=== PATIENT | male | born 1950 | race Caucasian/White ===

== ENCOUNTER 2021-02-06 13:50 | Inpatient (IN) | payer OTHER, SELFPAY ==
[2021-02-06] VITALS (7 sets, daily range): BP systolic 109–115; BP diastolic 78–96; PULSE 93–120; RESP 16–26; TEMP 36.6–36.9; O2SAT 84–97; BMI 30.7
--- NOTE | ~2021-02-06 | CT_ITS ---
EXAMINATION: CT ANGIOGRAM CHEST WITH AND WITHOUT CONTRAST (CT PULMONARY ANGIOGRAM FOR PE) CLINICAL INFORMATION: Positive D-dimer. New onset CHF. COMPARISON: Chest radiograph done earlier the same day and chest radiograph dated 01/21/2010. TECHNIQUE: Prior to contrast administration, noncontrast localization images were obtained. Subsequently, multidetector volumetric imaging was performed from the thoracic inlet to below the diaphragms following the administration of 69 mL Omnipaque 350 intravenous contrast. No contrast reaction reported. Sagittal, coronal, and MIP oblique sagittal reformatted images were obtained on the CT workstation, uploaded to PACS, and reviewed. This CT examination was performed using dose optimization techniques as appropriate, variously including the following: *Automated exposure control. *Adjustment of mA and/or kV according to patient size (this includes techniques or standardized protocols for targeted exams where dose is matched to indication/reason for exam; i.e. extremities or head). *Use of iterative reconstruction technique. Total exam dose-length product 523 mGy-cm. FINDINGS: QUALITY OF STUDY/CONTRAST BOLUS: Satisfactory. PULMONARY ARTERIES: No central or segmental pulmonary emboli. THORACIC AORTA: No aneurysm or dissection. Scattered atherosclerotic calcifications. LUNG: Diffuse interstitial prominence. Bilateral posterior dependent atelectasis versus infiltrates. No large pulmonary mass. PLEURA: The central airways appear patent. [id number] bilateral pleural effusions. No pneumothorax. MEDIASTINUM: Mild cardiomegaly including dilatation of the left heart. No pericardial effusion. Subcentimeter prevascular lymph nodes. No significant superior mediastinal or hilar lymphadenopathy. No evidence of septal bowing or right heart strain. CHEST WALL/AXILLA: No axillary or internal mammary lymphadenopathy. OSSEOUS STRUCTURES: No acute or suspicious osseous abnormality. UPPER ABDOMEN: Unremarkable. Reflux of contrast into the hepatic veins suggesting elevated right heart pressures. CT/CT angio chest PE protocol IMPRESSION: 1. No central or segmental pulmonary embolism. 2. Cardiomegaly including dilatation of the left heart with [id number] bilateral pleural effusions as well as diffuse interstitial prominence and bibasilar atelectasis versus early infiltrates. Findings can be seen in the setting of CHF. 3. Reflux of contrast into the hepatic veins suggesting elevated right heart pressures. VTE: Negative.
--- NOTE | ~2021-02-06 | XR_ITS ---
EXAMINATION: XR CHEST CLINICAL INFORMATION: Shortness of breath. COMPARISON: Chest 01/21/2010 TECHNIQUE: Frontal view of the chest was obtained. FINDINGS: The lungs are expanded with patchy groundglass opacity seen in both lung bases. The upper lungs are clear. The heart size and pulmonary vascularity is normal. There are median sternotomy sutures and mediastinal daren from previous intervention. There is moderate spondylosis dorsal spine. No lytic process. XR/XR chest 1V IMPRESSION: Diffuse groundglass opacity in bilateral lower lobes suggestive of developing infiltrate or atelectasis.
--- NOTE | 2021-02-06 14:01 | ED.SOB ---
HPI - SOB/Dyspnea General Chief Complaint: Dyspnea <Dixon Arceo MD - Last Filed: 02/06/21 16:07> Stated Complaint: diff breathing, cold symptoms <Dixon Arceo MD - Last Filed: 02/06/21 16:07> Time Seen by Provider: 02/06/21 14:01 <Dixon Arceo MD - Last Filed: 02/06/21 16:07> Source: patient <Dixon Arceo MD - Last Filed: 02/06/21 16:07> Mode of arrival: ambulatory <Dixon Arceo MD - Last Filed: 02/06/21 16:07> Limitations: no limitations <Dixon Arceo MD - Last Filed: 02/06/21 16:07> History of Present Illness HPI Narrative: shortness of breath started 3 days ago, patient had URI symptoms a few days ago now with shortness of breath. Patient is vaccinated for COVID. Patient had quadruple bypass 6 years ago no CHF history. 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. patient is an ex smoker <Dixno Arceo MD - Last Filed: 02/06/21 16:07> MD elicited complaint: shortness of breath <Dixon rAceo MD - Last Filed: 02/06/21 16:07> Onset (ago): day(s) <Dixon Arceo MD - Last Filed: 02/06/21 16:07> Timing: constant <Dixon Arceo MD - Last Filed: 02/06/21 16:07> Severity: severe <Dixon Arceo MD - Last Filed: 02/06/21 16:07> Associated symptoms: denies other symptoms <Dixon Arceo MD - Last Filed: 02/06/21 16:07> Related Data Allergies/Adverse Reactions: Allergies Allergy/AdvReac Type Severity Reaction Status Date / Time No Known Allergies Allergy Verified 02/06/21 14:07 <Dixon Arceo MD - Last Filed: 02/06/21 16:07> Review of Systems Constitutional: Constitutional: Reports no additional constitutional complaints <Dixon Arceo MD - Last Filed: 02/06/21 16:07> Eyes: Eyes: Reports no additional eye complaints <Dixon Arceo MD - Last Filed: 02/06/21 16:07> ENT: Denies dizziness <Dixon Arceo MD - Last Filed: 02/06/21 16:07> Cardiovascular: Cardiovascular: Reports no additional cardiovascular complaints <Dixon Arceo MD - Last Filed: 02/06/21 16:07> Respiratory: Respiratory: Reports as per HPI <Dixon Arceo MD - Last Filed: 02/06/21 16:07> Gastrointestinal: Gastrointestinal: Reports no additional gastrointestinal complaints <Dixon Arceo MD - Last Filed: 02/06/21 16:07> Musculoskeletal: Musculoskeletal: Reports no additional musculoskeletal complaints <Dixon Arceo MD - Last Filed: 02/06/21 16:07> Integumentary/Breasts: Skin/Breast: Denies rash <Dixon Arceo MD - Last Filed: 02/06/21 16:07> Neurologic: Reports system reviewed and no additional complaints, except as documented, Denies dizziness and Denies Sensory deficit (Neuro) <Dixon Arceo MD - Last Filed: 02/06/21 16:07> Psychiatric: Psychiatric: Denies anxiety <Dixon Arceo MD - Last Filed: 02/06/21 16:07> [facility] Past Medical History Medical History: Medical History Sarcoma <Dixon Arceo MD - Last Filed: 02/06/21 16:07> Surgical History: Surgical History S/P quadruple vessel bypass <Dixon Arceo MD - Last Filed: 02/06/21 16:07> Social History Social History: Social History Advance Directives: No Advance Directives Information Provided: Yes <Dixon Arceo MD - Last Filed: 02/06/21 16:07> Physical Exam Vital Signs: Vital Signs: Last Vital Signs Temp 98.4 F 02/06/21 14:02 Pulse 95 02/06/21 16:29 Resp 22 H 02/06/21 16:29 BP 115/83 02/06/21 16:29 Pulse Ox 95 02/06/21 14:05 Body Mass Index 30.7 <Dixon Arceo MD - Last Filed: 02/06/21 16:07> Vital Signs: Last Vital Signs Temp 98.4 F 02/06/21 14:02 Pulse 95 02/06/21 16:29 Resp 22 H 02/06/21 16:29 BP 115/83 02/06/21 16:29 Pulse Ox 95 02/06/21 14:05 Body Mass Index 30.7 <Emeli Radford MD - Last Filed: 02/06/21 18:01> Const: Other: slightly short of breath <Dixon Arceo MD - Last Filed: 02/06/21 16:07> Nutritional Appearance: average body habitus <Dixon Arceo MD - Last Filed: 02/06/21 16:07> Orientation/consciousness: oriented to person and patient oriented x3 <Dixon Arceo MD - Last Filed: 02/06/21 16:07> Limitations: no limitations <Dixon Arceo MD - Last Filed: 02/06/21 16:07> HENMT: Head: Yes normal to inspection <Dixon Arceo MD - Last Filed: 02/06/21 16:07> Ears: external ears normal <Dixon Arceo MD - Last Filed: 02/06/21 16:07> General nose exam: Normal external nose present <Dixon Arceo MD - Last Filed: 02/06/21 16:07> Mouth: Normal oral and palatal mucosa present and oropharynx normal <Dixon Arceo MD - Last Filed: 02/06/21 16:07> Throat: Yes posterior oropharynx normal <Dixon Arceo MD - Last Filed: 02/06/21 16:07> Eyes: General: appearance normal, both eyes and all related structures <Dixon Arceo MD - Last Filed: 02/06/21 16:07> Neck: Other: supple, positive JVD <Dixon Arceo MD - Last Filed: 02/06/21 16:07> Neck: Yes normal visual inspection <Dixon Arceo MD - Last Filed: 02/06/21 16:07> Chest: Chest palpation & inspection: normal inspection of the chest <Dixon Arceo MD - Last Filed: 02/06/21 16:07> Resp: Auscultation: clear to auscultation bilaterally <Dixon Arceo MD - Last Filed: 02/06/21 16:07> Cardio: Other: positive JVD <Dixon Arceo MD - Last Filed: 02/06/21 16:07> Rate: regular rate <Dixon Arceo MD - Last Filed: 02/06/21 16:07> Rhythm: regular rhythm <Dixon Arceo MD - Last Filed: 02/06/21 16:07> Heart sounds: S1 normal heart sound present and S2 normal heart sound present <Dixon Arceo MD - Last Filed: 02/06/21 16:07> GI: Inspection: Yes normal to inspection <Dixon Arceo MD - Last Filed: 02/06/21 16:07> Palpation (GI): Soft to palpation, nontender and No hepatosplenomegaly present <Dixon Arceo MD - Last Filed: 02/06/21 16:07> Auscultation: normal bowel sounds <Dixon Arceo MD - Last Filed: 02/06/21 16:07> : General: Yes no CVA tenderness <Dixon Arceo MD - Last Filed: 02/06/21 16:07> Back/Spine/Pelvis: Back: no CVA tenderness <Dixon Arceo MD - Last Filed: 02/06/21 16:07> Skin: General skin exam: no rashes or lesions noted <Dixon Arceo MD - Last Filed: 02/06/21 16:07> Neuro: General: oriented to person and patient oriented x3 <Dixon Arceo MD - Last Filed: 02/06/21 16:07> Cranial nerves: Yes CN's II-XII intact bilaterally <Dixon Arceo MD - Last Filed: 02/06/21 16:07> Motor exam (neuro): 5/5 motor strength present throughout <Dixon Arceo MD - Last Filed: 02/06/21 16:07> Sensory Exam: No Sensory deficit (Neuro) <Dixon Arceo MD - Last Filed: 02/06/21 16:07> Extrem: Other: bilateral leg swelling <Dixon Arceo MD - Last Filed: 02/06/21 16:07> Psych: Appearance: grossly normal <Dixon Arceo MD - Last Filed: 02/06/21 16:07> Course Reevaluation(s) Reevaluation #1: Patient with what appears to be new onset CHF, Cardiomegaly, JVD and leg edema. Gave ASA, NTP and lasix. In addition, ddimer is positive so will make sure that there is no PE and will CT angio chest. <Dixon Arceo MD - Last Filed: 02/06/21 16:07> Time: 15:34 <Dixon Arceo MD - Last Filed: 02/06/21 16:07> Reevaluation #2: I took sign out from Dr. Arceo and on review of all investigations findings are most consistent with acute CHF exacerbation and the elevated troponins likely secondary to increased work as there are no findings on EKG to suggest ischemic changes. However, the troponin, EKG, BNP are repeated and this case was discussed with the inpatient hospitalist who accepts admission and will evaluate output and order additional Lasix as indicated. <Emeli Radford MD - Last Filed: 02/06/21 18:01> Time: 16:56 <Emeli Radford MD - Last Filed: 02/06/21 18:01> Reevaluation #3: Dr Soriano evaluating patient. <Emeli Radford MD - Last Filed: 02/06/21 18:01> Time: 17:00 <Emeli Radford MD - Last Filed: 02/06/21 18:01> MDM - SOB/Dyspnea Lab Data Result diagrams: : 02/06/21 14:24 02/06/21 14:55 <Dixon Arceo MD - Last Filed: 02/06/21 16:07> Labs: Lab Results 02/06/21 02/06/21 02/06/21 Range/Units 14:23 14:24 14:24 WBC 7.7 (4.8-10.8) X10*3/uL RBC 4.72 (4.60-5.80) X10*6/uL Hgb 13.2 L (14.0-18.0) g/dl Hct 41.7 L (42.0-52.0) % MCV 88.3 (80.0-98.0) fL MCH 28.0 (27.0-33.0) pg MCHC 31.7 (31.0-36.0) g/dl RDW 15.4 (11.0-16.0) % Plt Count 175 (160-400) X10*3/uL MPV 11.8 (9.4-12.4) fL Immature Gran % (Auto) 0.1 (0.0-0.4) % Neut % (Auto) 62.0 (45-73) % Lymph % (Auto) 27.6 (20-40) % [place] % (Auto) 8.9 (2-11) % Eos % (Auto) 0.9 (0-4) % Baso % (Auto) 0.5 (0-2) % Lymph # (Auto) 2.1 (1.2-4.9) X10*3/uL [place] # (Auto) 0.7 (0.1-1.2) X10*3/uL Eos # (Auto) 0.1 (0.0-0.4) X10*3/uL Baso # (Auto) 0.0 (0.0-0.2) X10*3/uL Abs Immat Gran (auto) 0.01 (0.00-0.03) X10*3/uL Absolute Neuts (auto) 4.8 (2.0-8.3) x10*3/uL Absolute Nucleated RBC 0.000 (0.0-0.012) X10*3/uL Nucleated RBC % (auto) 0.0 (0.0-0.2) /100WBC D-Dimer High Sensitivty 390 NG/ML Sodium (135-145) mmol/L Potassium (3.3-5.1) mmol/L Chloride (96-108) mmol/L Carbon Dioxide (22-29) mmol/L Anion Gap (12-20) BUN (9-16) mg/dL Creatinine (0.5-1.4) mg/dL Estim Creat Clear Calc Estimated GFR POC Glucose 152 H (60-115) mg/dL Random Glucose (60-115) mg/dL Lactic Acid (0.5-2.0) mmol/L Calcium (8.4-10.2) mg/dL Troponin I High Sens (<3.5-35.0) ng/L B-Natriuretic Peptide (<100) pg/mL Influenza Type A (PCR) (Negative) Influenza Type B (PCR) (Negative) RSV RNA Qual (PCR) (Negative) SARS-CoV-2 RNA (RT-PCR) (Negative) 02/06/21 02/06/21 02/06/21 Range/Units 14:24 14:24 14:55 WBC (4.8-10.8) X10*3/uL RBC (4.60-5.80) X10*6/uL Hgb (14.0-18.0) g/dl Hct (42.0-52.0) % MCV (80.0-98.0) fL MCH (27.0-33.0) pg MCHC (31.0-36.0) g/dl RDW (11.0-16.0) % Plt Count (160-400) X10*3/uL MPV (9.4-12.4) fL Immature Gran % (Auto) (0.0-0.4) % Neut % (Auto) (45-73) % Lymph % (Auto) (20-40) % [place] % (Auto) (2-11) % Eos % (Auto) (0-4) % Baso % (Auto) (0-2) % Lymph # (Auto) (1.2-4.9) X10*3/uL [place] # (Auto) (0.1-1.2) X10*3/uL Eos # (Auto) (0.0-0.4) X10*3/uL Baso # (Auto) (0.0-0.2) X10*3/uL Abs Immat Gran (auto) (0.00-0.03) X10*3/uL Absolute Neuts (auto) (2.0-8.3) x10*3/uL Absolute Nucleated RBC (0.0-0.012) X10*3/uL Nucleated RBC % (auto) (0.0-0.2) /100WBC D-Dimer High Sensitivty NG/ML Sodium 144 (135-145) mmol/L Potassium 3.7 (3.3-5.1) mmol/L Chloride 105 (96-108) mmol/L Carbon Dioxide 28 (22-29) mmol/L Anion Gap 15 (12-20) BUN 18 H (9-16) mg/dL Creatinine 0.92 (0.5-1.4) mg/dL Estim Creat Clear Calc 75.7 Estimated GFR > 60 POC Glucose (60-115) mg/dL Random Glucose 138 H (60-115) mg/dL Lactic Acid (0.5-2.0) mmol/L Calcium 8.8 (8.4-10.2) mg/dL Troponin I High Sens 125.3 H* (<3.5-35.0) ng/L B-Natriuretic Peptide 1273 H (<100) pg/mL Influenza Type A (PCR) NEGATIVE (Negative) Influenza Type B (PCR) NEGATIVE (Negative) RSV RNA Qual (PCR) NEGATIVE (Negative) SARS-CoV-2 RNA (RT-PCR) NEGATIVE (Negative) 02/06/21 02/06/21 Range/Units 16:35 16:35 WBC (4.8-10.8) X10*3/uL RBC (4.60-5.80) X10*6/uL Hgb (14.0-18.0) g/dl Hct (42.0-52.0) % MCV (80.0-98.0) fL MCH (27.0-33.0) pg MCHC (31.0-36.0) g/dl RDW (11.0-16.0) % Plt Count (160-400) X10*3/uL MPV (9.4-12.4) fL Immature Gran % (Auto) (0.0-0.4) % Neut % (Auto) (45-73) % Lymph % (Auto) (20-40) % [place] % (Auto) (2-11) % Eos % (Auto) (0-4) % Baso % (Auto) (0-2) % Lymph # (Auto) (1.2-4.9) X10*3/uL [place] # (Auto) (0.1-1.2) X10*3/uL Eos # (Auto) (0.0-0.4) X10*3/uL Baso # (Auto) (0.0-0.2) X10*3/uL Abs Immat Gran (auto) (0.00-0.03) X10*3/uL Absolute Neuts (auto) (2.0-8.3) x10*3/uL Absolute Nucleated RBC (0.0-0.012) X10*3/uL Nucleated RBC % (auto) (0.0-0.2) /100WBC D-Dimer High Sensitivty NG/ML Sodium (135-145) mmol/L Potassium (3.3-5.1) mmol/L Chloride (96-108) mmol/L Carbon Dioxide (22-29) mmol/L Anion Gap (12-20) BUN (9-16) mg/dL Creatinine (0.5-1.4) mg/dL Estim Creat Clear Calc Estimated GFR POC Glucose (60-115) mg/dL Random Glucose (60-115) mg/dL Lactic Acid 2.7 H* (0.5-2.0) mmol/L Calcium (8.4-10.2) mg/dL Troponin I High Sens 114.4 H* (<3.5-35.0) ng/L B-Natriuretic Peptide 2133 H (<100) pg/mL Influenza Type A (PCR) (Negative) Influenza Type B (PCR) (Negative) RSV RNA Qual (PCR) (Negative) SARS-CoV-2 RNA (RT-PCR) (Negative) <Dixon Arceo MD - Last Filed: 02/06/21 16:07> Lab Results 02/06/21 02/06/21 02/06/21 Range/Units 14:23 14:24 14:24 WBC 7.7 (4.8-10.8) X10*3/uL RBC 4.72 (4.60-5.80) X10*6/uL Hgb 13.2 L (14.0-18.0) g/dl Hct 41.7 L (42.0-52.0) % MCV 88.3 (80.0-98.0) fL MCH 28.0 (27.0-33.0) pg MCHC 31.7 (31.0-36.0) g/dl RDW 15.4 (11.0-16.0) % Plt Count 175 (160-400) X10*3/uL MPV 11.8 (9.4-12.4) fL Immature Gran % (Auto) 0.1 (0.0-0.4) % Neut % (Auto) 62.0 (45-73) % Lymph % (Auto) 27.6 (20-40) % [place] % (Auto) 8.9 (2-11) % Eos % (Auto) 0.9 (0-4) % Baso % (Auto) 0.5 (0-2) % Lymph # (Auto) 2.1 (1.2-4.9) X10*3/uL [place] # (Auto) 0.7 (0.1-1.2) X10*3/uL Eos # (Auto) 0.1 (0.0-0.4) X10*3/uL Baso # (Auto) 0.0 (0.0-0.2) X10*3/uL Abs Immat Gran (auto) 0.01 (0.00-0.03) X10*3/uL Absolute Neuts (auto) 4.8 (2.0-8.3) x10*3/uL Absolute Nucleated RBC 0.000 (0.0-0.012) X10*3/uL Nucleated RBC % (auto) 0.0 (0.0-0.2) /100WBC D-Dimer High Sensitivty 390 NG/ML Sodium (135-145) mmol/L Potassium (3.3-5.1) mmol/L Chloride (96-108) mmol/L Carbon Dioxide (22-29) mmol/L Anion Gap (12-20) BUN (9-16) mg/dL Creatinine (0.5-1.4) mg/dL Estim Creat Clear Calc Estimated GFR POC Glucose 152 H (60-115) mg/dL Random Glucose (60-115) mg/dL Lactic Acid (0.5-2.0) mmol/L Calcium (8.4-10.2) mg/dL Troponin I High Sens (<3.5-35.0) ng/L B-Natriuretic Peptide (<100) pg/mL Influenza Type A (PCR) (Negative) Influenza Type B (PCR) (Negative) RSV RNA Qual (PCR) (Negative) SARS-CoV-2 RNA (RT-PCR) (Negative) 02/06/21 02/06/21 02/06/21 Range/Units 14:24 14:24 14:55 WBC (4.8-10.8) X10*3/uL RBC (4.60-5.80) X10*6/uL Hgb (14.0-18.0) g/dl Hct (42.0-52.0) % MCV (80.0-98.0) fL MCH (27.0-33.0) pg MCHC (31.0-36.0) g/dl RDW (11.0-16.0) % Plt Count (160-400) X10*3/uL MPV (9.4-12.4) fL Immature Gran % (Auto) (0.0-0.4) % Neut % (Auto) (45-73) % Lymph % (Auto) (20-40) % [place] % (Auto) (2-11) % Eos % (Auto) (0-4) % Baso % (Auto) (0-2) % Lymph # (Auto) (1.2-4.9) X10*3/uL [place] # (Auto) (0.1-1.2) X10*3/uL Eos # (Auto) (0.0-0.4) X10*3/uL Baso # (Auto) (0.0-0.2) X10*3/uL Abs Immat Gran (auto) (0.00-0.03) X10*3/uL Absolute Neuts (auto) (2.0-8.3) x10*3/uL Absolute Nucleated RBC (0.0-0.012) X10*3/uL Nucleated RBC % (auto) (0.0-0.2) /100WBC D-Dimer High Sensitivty NG/ML Sodium 144 (135-145) mmol/L Potassium 3.7 (3.3-5.1) mmol/L Chloride 105 (96-108) mmol/L Carbon Dioxide 28 (22-29) mmol/L Anion Gap 15 (12-20) BUN 18 H (9-16) mg/dL Creatinine 0.92 (0.5-1.4) mg/dL Estim Creat Clear Calc 75.7 Estimated GFR > 60 POC Glucose (60-115) mg/dL Random Glucose 138 H (60-115) mg/dL Lactic Acid (0.5-2.0) mmol/L Calcium 8.8 (8.4-10.2) mg/dL Troponin I High Sens 125.3 H* (<3.5-35.0) ng/L B-Natriuretic Peptide 1273 H (<100) pg/mL Influenza Type A (PCR) NEGATIVE (Negative) Influenza Type B (PCR) NEGATIVE (Negative) RSV RNA Qual (PCR) NEGATIVE (Negative) SARS-CoV-2 RNA (RT-PCR) NEGATIVE (Negative) 02/06/21 02/06/21 Range/Units 16:35 16:35 WBC (4.8-10.8) X10*3/uL RBC (4.60-5.80) X10*6/uL Hgb (14.0-18.0) g/dl Hct (42.0-52.0) % MCV (80.0-98.0) fL MCH (27.0-33.0) pg MCHC (31.0-36.0) g/dl RDW (11.0-16.0) % Plt Count (160-400) X10*3/uL MPV (9.4-12.4) fL Immature Gran % (Auto) (0.0-0.4) % Neut % (Auto) (45-73) % Lymph % (Auto) (20-40) % [place] % (Auto) (2-11) % Eos % (Auto) (0-4) % Baso % (Auto) (0-2) % Lymph # (Auto) (1.2-4.9) X10*3/uL [place] # (Auto) (0.1-1.2) X10*3/uL Eos # (Auto) (0.0-0.4) X10*3/uL Baso # (Auto) (0.0-0.2) X10*3/uL Abs Immat Gran (auto) (0.00-0.03) X10*3/uL Absolute Neuts (auto) (2.0-8.3) x10*3/uL Absolute Nucleated RBC (0.0-0.012) X10*3/uL Nucleated RBC % (auto) (0.0-0.2) /100WBC D-Dimer High Sensitivty NG/ML Sodium (135-145) mmol/L Potassium (3.3-5.1) mmol/L Chloride (96-108) mmol/L Carbon Dioxide (22-29) mmol/L Anion Gap (12-20) BUN (9-16) mg/dL Creatinine (0.5-1.4) mg/dL Estim Creat Clear Calc Estimated GFR POC Glucose (60-115) mg/dL Random Glucose (60-115) mg/dL Lactic Acid 2.7 H* (0.5-2.0) mmol/L Calcium (8.4-10.2) mg/dL Troponin I High Sens 114.4 H* (<3.5-35.0) ng/L B-Natriuretic Peptide 2133 H (<100) pg/mL Influenza Type A (PCR) (Negative) Influenza Type B (PCR) (Negative) RSV RNA Qual (PCR) (Negative) SARS-CoV-2 RNA (RT-PCR) (Negative) <Emeli Radford MD - Last Filed: 02/06/21 18:01> Imaging Data Chest x-ray: Radiologist's impression: FINDINGS: The lungs are expanded with patchy groundglass opacity seen in both lung bases. The upper lungs are clear. The heart size and pulmonary vascularity is normal. There are median sternotomy sutures and mediastinal daren from previous intervention. There is moderate spondylosis dorsal spine. No lytic process. XR/XR chest 1V IMPRESSION: Diffuse groundglass opacity in bilateral lower lobes suggestive of developing infiltrate or atelectasis. ? <Dixon Arceo MD - Last Filed: 02/06/21 16:07> ECG Data Attestation: I personally reviewed and interpreted this ECG as follows: <Dixon Arceo MD - Last Filed: 02/06/21 16:07> Interpretation: sinus rate 100, no st or twave changes. <Dixon Arceo MD - Last Filed: 02/06/21 16:07> Discharge Plan Discharge Clinical Impression: CHF exacerbation, Elevated troponin <Dixon Arceo MD - Last Filed: 02/06/21 16:07> Patient Disposition: Admitted As Inpatient <Dixon Arceo MD - Last Filed: 02/06/21 16:07>
--- NOTE | 2021-02-06 14:07 | ECG_ITS ---
Test Reason : SHORT OF BREATH Blood Pressure : / mmHG Vent. Rate : 104 BPM Atrial Rate : 104 BPM P-R Int : 132 ms QRS Dur : 116 ms QT Int : 342 ms P-R-T Axes : 070 056 116 degrees QTc Int : 449 ms Sinus tachycardia with occasional Premature ventricular complexes in a pattern of trigeminy Intra-ventricular conduction delay Nonspecific ST and T wave abnormality Abnormal ECG No previous ECGs available Referred By: Dixon Arceo Electronically Signed By:DORINA OVERTON MD
--- NOTE | 2021-02-06 14:29 | PC.NURSE ---
RN aware POC 152
[2021-02-06 14:34] LABS: Glucose, Whole Blood 152 mg/dL (60-115)
[2021-02-06 14:37] LABS: MANUAL DIFF FLAG NO
[2021-02-06 14:41] LABS: Basophils Percent Auto 0.5 % (0-2); Eosinophils Absolute Auto 0.1 X10*3/uL (0.0-0.4); Eosinophils Percent Auto 0.9 % (0-4); Hematocrit 41.7 % (42.0-52.0); Hemoglobin 13.2 g/dl (14.0-18.0); Imm Gran Abs Auto 0.01 X10*3/uL (0.00-0.03); Imm Gran Pct Auto 0.1 % (0.0-0.4); Lymphocytes Absolute Auto 2.1 X10*3/uL (1.2-4.9); Lymphocytes Percent Auto 27.6 % (20-40); Mean Corpuscular HGB Conc 31.7 g/dl (31.0-36.0); Mean Corpuscular Volume 88.3 fL (80.0-98.0); Mean Platelet Volume 11.8 fL (9.4-12.4); Monocytes Absolute Auto 0.7 X10*3/uL (0.1-1.2); Monocytes Percent Auto 8.9 % (2-11); Neutrophils Absolute Auto 4.8 x10*3/uL (2.0-8.3); Platelet Count 175 X10*3/uL (160-400); Red Blood Count 4.72 X10*6/uL (4.60-5.80); Red Cell Distribution Width 15.4 % (11.0-16.0); White Blood Count 7.7 X10*3/uL (4.8-10.8)
[2021-02-06 14:46] LABS: D Dimer High Sensitivity 390 NG/ML
[2021-02-06 14:59] LABS: B Type Natriuretic Peptide 1273 pg/mL (<100); Troponin-I High Sensitivity 125.3 ng/L (<3.5-35.0)
[2021-02-06 15:19] LABS: Anion Gap 15 (12-20); Blood Urea Nitrogen 18 mg/dL (9-16); Calcium 8.8 mg/dL (8.4-10.2); Carbon Dioxide 28 mmol/L (22-29); Chloride 105 mmol/L (96-108); Creatinine Clr Calc Pharmacy 75.7; Estimated Glomerular Filt Rate > 60; Glucose Random 138 mg/dL (60-115); Potassium 3.7 mmol/L (3.3-5.1); Sodium 144 mmol/L (135-145)
[2021-02-06 15:29] LABS: Influenza A PCR NEGATIVE (Negative); Influenza B PCR NEGATIVE (Negative); Resp Syncy Virus RNA Qual PCR NEGATIVE (Negative); SARS COV2 PCR INHOUSE NEGATIVE (Negative)
[2021-02-06] MEDS: Furosemide 20 MG/2 ML VIAL IVPUSH (15:37)
[2021-02-06] MEDS: Aspirin Enteric Coated 325 MG TABLET.DR PO (15:37)
[2021-02-06] MEDS: Nitroglycerin 2 % Oint 1 GM Packet 1 INCH TRANSDERMA (15:37)
[2021-02-06] MEDS: iohexoL 350 MG/ML 100 ML INFUS..BTL IV (16:12)
--- NOTE | 2021-02-06 16:30 | ECG_ITS ---
Test Reason : REPEAT Blood Pressure : / mmHG Vent. Rate : 098 BPM Atrial Rate : 097 BPM P-R Int : 150 ms QRS Dur : 126 ms QT Int : 366 ms P-R-T Axes : 064 035 093 degrees QTc Int : 467 ms Normal sinus rhythm with frequent Premature ventricular complexes Intra-ventricular conduction delay Nonspecific T wave abnormality Abnormal ECG When compared with ECG of 06-FEB-2021 14:16, ST more elevated in Septal leads one couplet is present Referred By: Emeli Radford Electronically Signed By:DORINA OVERTON MD
[2021-02-06 17:00] LABS: Lactic Acid 2.7 mmol/L (0.5-2.0)
[2021-02-06 17:09] LABS: B Type Natriuretic Peptide 2133 pg/mL (<100); Troponin-I High Sensitivity 114.4 ng/L (<3.5-35.0)
--- NOTE | 2021-02-06 18:01 | PM.IMHP ---
History of Present Illness Date of Service: 02/06/21 70-year-old male with a known history of coronary artery disease status post quadruple bypass 6 years remote presents with approximately 1 week of worsening shortness of breath with exertion. He states this began with what he thought was a cold/sinus infection but progressed to the point where he could not walk across the room without having to stop and put his hands on his hips to breathe. He states at no time did he experience any chest pain related to a shortness of breath. When queried about his symptoms prior to bypass, patient stated he had a lot of burping . Workup in the ER included chest x-ray which demonstrated diffuse ground-glass opacities in bilateral lower lobes; D-dimer was mildly elevated prompting a CTA. CTA failed to demonstrate a central or segmental pulmonary embolism, but did demonstrate cardiomegaly including dilation of the left heart wit small to moderate bilateral pleural effusions as well as diffuse interstitial prominences all in the backdrop BNP over 1999. Patient was given an inch of nitro paste topically, Lasix 20 , and aspirin. 1. CHF with known coronary artery disease Troponin mildly elevated at 120 down to 114 from initial. Poor output from Lasix 20 Discussed with Cardiology, who agrees this is likely to heart failure and not an acute [place]. Patient will be admitted to telemetry and BNP and troponins will be trended/aggressive diaphoresis 2D echo will be ordered for the a.m. Dr. Jones will be in in the morning 2. Coronary artery disease Patient recounts infrequent follow-up with both PCP and speech therapist technician; currently only takes a baby aspirin daily Initial labs essentially unremarkable; will draw lipid profile in a.m. along with hemoglobin A1c given elevated initial sugar 3. Full code Lovenox Review of Systems Review of Systems: Denies chest pain admits to shortness of breath of breath with exertion Admits to mild swelling in the ankles PMFSH Medical History [facility] History S/P quadruple vessel bypass Social History Alcohol intake: never Patient Tobacco Use Status: Former Tobacco user Smoked in Last 30 Days: Yes Use of substances other than those prescribed or required for medical reasons: No Advance Directives: No Advance Directives Information Provided: Yes Meds Allergies Allergy/AdvReac Type Severity Reaction Status Date / Time No Known Allergies Allergy Verified 02/06/21 14:07 Physical Exam Vital Signs and Narrative: Vital Signs: Last Vital Signs Temp 98.4 F 02/06/21 14:02 Pulse 95 02/06/21 16:29 Resp 22 H 02/06/21 16:29 BP 115/83 02/06/21 16:29 Pulse Ox 95 02/06/21 14:05 Body Mass Index 30.7 Const: Other: Awake alert oriented x3 no acute distress no chest pain Neck: Other: 3 cm JVD at 45 degrees Resp: Other: Clear but diminished at bases; no rales rhonchi or wheezes Cardio: Other: Regular rate and rhythm; no S4; positive S1-S2; no S3 there is a 2/6 systolic murmur best heard at the apex GI: Other: Soft nontender nondistended with normoactive bowel sounds Extrem: Other: 1+ edema bilaterally Results Labs CBC and Chem 7: 02/06/21 14:24 02/06/21 14:55 Labs: Laboratory Results - last 24 hr 02/06/21 02/06/21 02/06/21 14:23 14:24 14:24 MCV 88.3 MCH 28.0 MCHC 31.7 RDW 15.4 Plt Count 175 MPV 11.8 Immature Gran % (Auto) 0.1 Neut % (Auto) 62.0 Lymph % (Auto) 27.6 Ramsey % (Auto) 8.9 Eos % (Auto) 0.9 Baso % (Auto) 0.5 Lymph # (Auto) 2.1 Ramsey # (Auto) 0.7 Eos # (Auto) 0.1 Baso # (Auto) 0.0 Abs Immat Gran (auto) 0.01 Absolute Neuts (auto) 4.8 Absolute Nucleated RBC 0.000 Nucleated RBC % (auto) 0.0 D-Dimer High Sensitivty 390 Anion Gap Estim Creat Clear Calc Estimated GFR POC Glucose 152 H Random Glucose Lactic Acid Calcium Troponin I High Sens B-Natriuretic Peptide Influenza Type A (PCR) Influenza Type B (PCR) RSV RNA Qual (PCR) SARS-CoV-2 RNA (RT-PCR) 02/06/21 02/06/21 02/06/21 14:24 14:24 14:55 MCV MCH MCHC RDW Plt Count MPV Immature Gran % (Auto) Neut % (Auto) Lymph % (Auto) Ramsey % (Auto) Eos % (Auto) Baso % (Auto) Lymph # (Auto) Ramsey # (Auto) Eos # (Auto) Baso # (Auto) Abs Immat Gran (auto) Absolute Neuts (auto) Absolute Nucleated RBC Nucleated RBC % (auto) D-Dimer High Sensitivty Anion Gap 15 Estim Creat Clear Calc 75.7 Estimated GFR > 60 POC Glucose Random Glucose 138 H Lactic Acid Calcium 8.8 Troponin I High Sens 125.3 H* B-Natriuretic Peptide 1273 H Influenza Type A (PCR) NEGATIVE Influenza Type B (PCR) NEGATIVE RSV RNA Qual (PCR) NEGATIVE SARS-CoV-2 RNA (RT-PCR) NEGATIVE 02/06/21 02/06/21 16:35 16:35 MCV MCH MCHC RDW Plt Count MPV Immature Gran % (Auto) Neut % (Auto) Lymph % (Auto) Ramsey % (Auto) Eos % (Auto) Baso % (Auto) Lymph # (Auto) Ramsey # (Auto) Eos # (Auto) Baso # (Auto) Abs Immat Gran (auto) Absolute Neuts (auto) Absolute Nucleated RBC Nucleated RBC % (auto) D-Dimer High Sensitivty Anion Gap Estim Creat Clear Calc Estimated GFR POC Glucose Random Glucose Lactic Acid 2.7 H* Calcium Troponin I High Sens 114.4 H* B-Natriuretic Peptide 2133 H Influenza Type A (PCR) Influenza Type B (PCR) RSV RNA Qual (PCR) SARS-CoV-2 RNA (RT-PCR) Imaging Radiologist's Impressions: Impressions Chest X-Ray 02/06/21 14:07 IMPRESSION: Diffuse groundglass opacity in bilateral lower lobes suggestive of developing infiltrate or atelectasis. Chest CTA 02/06/21 15:30 IMPRESSION: 1. No central or segmental pulmonary embolism. 2. Cardiomegaly including dilatation of the left heart with [id number] bilateral pleural effusions as well as diffuse interstitial prominence and bibasilar atelectasis versus early infiltrates. Findings can be seen in the setting of CHF. 3. Reflux of contrast into the hepatic veins suggesting elevated right heart pressures. VTE: Negative. Assessment and Plan (1) CHF exacerbation: Status: Acute (2) Elevated troponin: Status: Acute 70-year-old male presents with CHF in the backdrop of known cardiac disease. Discussed with Cardiology will admit diurese and get echo in the morning. Trend troponins. Detailed plan as above Quality Stroke Does the patient have a stroke diagnosis?: No VTE Prior VTE?: No VTE Risk Level:: Medical - moderate - high VTE Device Contraindication: Treatment Not Indicated VTE Drug Contraindication: N/A - Med Ordered
[2021-02-06] MEDS: Furosemide 40 MG/4 ML VIAL IVPUSH (18:04)
[2021-02-06 18:39] LABS: Reflex Lactate? Lactic Acid Added
[2021-02-06 19:03] LABS: Troponin-I High Sensitivity 97.5 ng/L (<3.5-35.0)
--- NOTE | 2021-02-06 19:30 | PC.NURSE ---
1000ml emptied from bedside urinal
[2021-02-06] MEDS: Enoxaparin Sodium 40 MG/0.4 ML SYRINGE SUBCUT (19:37)
[2021-02-06] MEDS: Acetaminophen 325 MG TABLET 650 MG PO (19:43)
[2021-02-06 20:26] LABS: ~Lactic Acid-LAB USE ONLY 1.4 mmol/L (0.5-2.0)
--- NOTE | 2021-02-06 23:34 | PC.NURSE ---
600ml emptied from bedside urinal
[2021-02-07] VITALS (22 sets, daily range): BP systolic 84–144; BP diastolic 51–94; PULSE 66–174; RESP 15–20; TEMP 36.1–37.2; O2SAT 94–98; BMI 31.0
--- NOTE | 2021-02-07 | ECG_ITS ---
Test Reason : SVT Blood Pressure : / mmHG Vent. Rate : 169 BPM Atrial Rate : 000 BPM P-R Int : 000 ms QRS Dur : 114 ms QT Int : 300 ms P-R-T Axes : 000 051 201 degrees QTc Int : 503 ms Supraventricular tachycardia with occasional Premature ventricular complexes ST depression, consider subendocardial injury Nonspecific T wave abnormality Abnormal ECG When compared with ECG of 06-FEB-2021 16:55, Heart rate has increased Supraventricular tachycardia is new ST now depressed in Inferior leads ST now depressed in Anterolateral leads Referred By: Lopez Soriano Electronically Signed By:DORINA OVERTON MD
--- NOTE | 2021-02-07 | ECG_ITS ---
Test Reason : S/P SVT Blood Pressure : / mmHG Vent. Rate : 094 BPM Atrial Rate : 094 BPM P-R Int : 136 ms QRS Dur : 116 ms QT Int : 358 ms P-R-T Axes : 063 046 111 degrees QTc Int : 447 ms Sinus rhythm with frequent Premature ventricular complexes Nonspecific ST and T wave abnormality Abnormal ECG When compared with ECG of 07-FEB-2021 11:10, Nonspecific ST abnormality is new Nonspecific T wave abnormality no longer evident in Inferior leads Referred By: Lopez Soirano Electronically Signed By:DORINA OVERTON MD
--- NOTE | 2021-02-07 | ECG_ITS ---
Test Reason : S/P SVT Blood Pressure : / mmHG Vent. Rate : 095 BPM Atrial Rate : 098 BPM P-R Int : 134 ms QRS Dur : 116 ms QT Int : 344 ms P-R-T Axes : 048 049 -06 degrees QTc Int : 432 ms Normal sinus rhythm with frequent Premature ventricular complexes Nonspecific ST and T wave abnormality Abnormal ECG When compared with ECG of 07-FEB-2021 11:04, Normal sinus rhythm has replaced Supraventricular tachycardia Premature ventricular complexes are new ST no longer depressed in Inferior leads ST no longer depressed in Anterior leads Referred By: Lopez Soriano Electronically Signed By:DORINA OVERTON MD
[2021-02-07] MEDS: Acetaminophen 325 MG TABLET 650 MG PO (05:43)
[2021-02-07 06:21] LABS: MANUAL DIFF FLAG NO
[2021-02-07 06:26] LABS: Basophils Absolute Auto 0.1 X10*3/uL (0.0-0.2); Basophils Percent Auto 0.8 % (0-2); Eosinophils Absolute Auto 0.1 X10*3/uL (0.0-0.4); Eosinophils Percent Auto 1.3 % (0-4); Hematocrit 38.4 % (42.0-52.0); Hemoglobin 12.1 g/dl (14.0-18.0); Imm Gran Abs Auto 0.02 X10*3/uL (0.00-0.03); Imm Gran Pct Auto 0.3 % (0.0-0.4); Lymphocytes Absolute Auto 1.7 X10*3/uL (1.2-4.9); Lymphocytes Percent Auto 27.1 % (20-40); Mean Corpuscular HGB Conc 31.5 g/dl (31.0-36.0); Mean Corpuscular Volume 88.9 fL (80.0-98.0); Mean Platelet Volume 11.8 fL (9.4-12.4); Monocytes Absolute Auto 0.6 X10*3/uL (0.1-1.2); Monocytes Percent Auto 9.6 % (2-11); Neutrophils Absolute Auto 3.7 x10*3/uL (2.0-8.3); Neutrophils Percent Auto 60.9 % (45-73); Platelet Count 157 X10*3/uL (160-400); Red Blood Count 4.32 X10*6/uL (4.60-5.80); Red Cell Distribution Width 15.2 % (11.0-16.0); White Blood Count 6.1 X10*3/uL (4.8-10.8)
[2021-02-07 06:40] LABS: Anion Gap 13 (12-20); Blood Urea Nitrogen 17 mg/dL (9-16); Calcium 8.7 mg/dL (8.4-10.2); Carbon Dioxide 32 mmol/L (22-29); Chloride 100 mmol/L (96-108); Cholesterol 136 mg/dL; Creatinine Clr Calc Pharmacy 77.4; Estimated Glomerular Filt Rate > 60; Glucose Random 100 mg/dL (60-115); HDL Cholesterol 37 mg/dL; LDL Cholesterol Calculated 87 mg/dl; Potassium 4.1 mmol/L (3.3-5.1); Sodium 141 mmol/L (135-145); Triglycerides 63 mg/dL
[2021-02-07 06:45] LABS: B Type Natriuretic Peptide 1152 pg/mL (<100)
--- NOTE | 2021-02-07 06:58 | PHA.MEDREC ---
Pharmacy Consult ? Medication Reconciliation Pharmacy has completed the medication reconciliation.
[2021-02-07 07:01] LABS: Estimated Average Glucose 103 mg/dL; Hemoglobin A1c % 5.2 %
--- NOTE | 2021-02-07 07:45 | PC.NURSE ---
pt alert and oriented x4, vss. denies pain. pt currently on 2L N/C he reports sob with exertion. no chest pain, no dizziness, no headache. breakfast given. no complaints. awaiting bed assignment.
[2021-02-07] MEDS: Metoprolol Tartrate 25 MG TABLET PO ×3 (08:35→17:49)
[2021-02-07] MEDS: 0.9 % Sodium Chloride Flush 3 ML SYRINGE IVFLUSH ×3 (08:38→20:34)
[2021-02-07] MEDS: Furosemide 40 MG/4 ML VIAL IVPUSH (08:49)
--- NOTE | 2021-02-07 09:00 | CA_ITS ---
Transthoracic Echocardiogram Patient (Last, First, Middle): Brice Mike J Gender: Male Date of : 1950 Age: 70 Procedure Date: 02/07/2021 Procedure Type: Transthoracic Echocardiogram Location: ER Height: 167.64 cm Weight: 86.18 kg BSA: 1.96 m2 Heart Rate: bpm BP: 144 / 93 mmHg Sandwich Board Carrier: FELICITY Smith MD: Lopez Soriano DO [place] Laborer: Patrick Jones MD Symptoms: chf Study Quality: Fair/Contrast ECG Rhythm: Sinus with extra beats Conclusions: - 1. Moderately dilated left ventricle with LVEF of 20-25% with grade 2 diastolic dysfunction with regional wall motion abnormality consistent with ischemic cardiomyopathy 2. Mildly dilated right ventricle with mild systolic dysfunction 3. Mild left atrial enlargement 4. Moderate mitral regurgitation due to restricted posterior leaflet 5. Normal calculated RV systolic pressure 6. Trivial pericardial effusion Findings Procedure Information Contrast agent, definity, is being given per protocol without apparent complications. Left Ventricle Moderately increased left ventricular cavity size. There is normal left ventricular wall thickness. The left ventricular systolic function is severely decreased. The visually estimated ejection fraction is between 20 25%. Spectral Doppler is indicative of a pseudonormal filling pattern. E/E prime ratio is >15, consistent with elevated filling pressures. Evidence suggests grade II (moderate) diastolic dysfunction. Wall Motion Rest Echo Findings The entire apex, anterior wall, anteroseptal wall, and anterolateral wall are hypokinetic. The inferoseptal wall, inferolateral wall, the basal inferior, and mid inferior segments are akinetic. Right Ventricle Mildly increased right ventricular cavity size. There is mildly decreased right ventricular systolic function. Atria The left atrium is mildly dilated. Interatrial shunt cannot be excluded. The right atrium is mildly dilated. Aortic Valve There is mild calcification of the aortic valve. There is mild thickening of the aortic valve. There is no aortic valve stenosis. There is no aortic valve regurgitation. Mitral Valve There is mild anterior and moderate posterior mitral leaflet thickening. The posterior mitral leaflet has restricted mobility. There is moderate mitral valve regurgitation. There is no mitral valve stenosis. Pulmonic Valve The pulmonic valve was not well visualized. Tricuspid Valve Likely normal tricuspid valve structure and function. There is mild tricuspid valve regurgitation. The right ventricular systolic pressure is normal. There is no evidence of pulmonary hypertension. Great Vessels All visible segments of the aorta are normal in size. The pulmonary artery was not well visualized. Venous The inferior vena cava is normal in size. Pericardium/Pleural There is a trivial loculated pericardial effusion overlying the left ventricle. Prior Study Comparison No prior study available for comparison. Measurements 2D Linear Measurements IVSd: 0.98 0.6-0.9/0.6-1.0 cm LVIDd: 6.62 3.9-5.3/4.2-5.9 cm LVIDd Index: 3.38 2.4-3.2/2.2-3.1 cm/m2 LVIDs: 5.94 2.0-3.6 cm LVPWd: 1.01 0.7-1.1 cm Ao Root: 3.40 2.1-3.5 cm LA Diam: 5.30 2.7-3.8/3.0-4.0 cm LAIDs Index: 2.70 1.5-2.3 cm/m2 LV Mass: 360.93 67-162/88-224 g LV Mass Index: 184.15 43-95/49-115 g/m2 LVOT Diam: 2.10 3.0+(-)1.3 cm 2D Systolic Function EF 4C: 44.40 >55% EF 2C: 37.40 >55% Mitral Valve MV VTI: 0.35 MV Pk Migel: 1.81 MV Mn Migel: 0.91 MV Pk Grad: 13.00 MV Mn Grad: 4.00 PHT: 69.00 MVA PHT: 3.19 MVA Continuity: 0.98 Decel Heard: 7.45 Aortic Valve AoV Pk Migel: 1.32 AoV Mn Migel: 0.86 AoV VTI: 0.17 AoV Pk Grad: 7.00 Aov Mn Grad: 4.00 AVANI Cont.VTI: 2.01 LVOT LVOT Pk Migel: 0.76 LVOT Mn Migel: 0.48 LVOT VTI: 0.10 LVOT Pk Grad: 2.00 LVOT Mn Grad: 1.00 LVOT Diam: 2.10 LVOT Area: 3.46 Right Ventricle TAPSE (mm): 1.51 TVS' Migel: 7.72 Tricuspid Valve TR Pk Migel: 2.59 TR Pk Grad: 27.00 RA Press: 8.00 RVSP: 35.00 Great Vessels Aorta Ao Root-2D: 3.40 2.0-3.7 cm Ao Asc: 3.40 2.1-3.4 cm Updated in Other Vendor System with Status of Final Patrick Jones MD electronically signed on 02/07/2021 1:59:36 PM with status of Final
--- NOTE | 2021-02-07 10:49 | PC.NURSE ---
pt placed on bedside athletic monitor and nitro paste removed by md cloud.
--- NOTE | 2021-02-07 11:05 | MHC.CM.PN ---
Met with patient in regards to discharge planning. Patient lives with his , ambulates independently and had no services prior to coming to the hospital. Patient is currently on oxygen but doesn't use it at baseline. Patient still works. Services not anticipated to be needed because patient is not homebound. Patient also hasn't seen his PCP in 3 years. The office if either [facility] or [facility]. retail sales assistant has been asked to verify which provided. Patient received 2 Covid vaccines. Patient's will transport him home when medically stable. Continue to monitor for d/c needs.
--- NOTE | 2021-02-07 12:00 | PC.NURSE ---
pt tachycardic on monitor 174 -176 lasting greater than one minute. 6mg of Adenosine given HR remained in the mid-high 170s. 12mg Adenosine given which brought HR to 94-96. pt denies chest pain/dizziness/headache. no new c/o of sob. He reports he still gets sob with exertion. pt remains on 2L n/c satting 94-96%. pt awaiting bed assignment.
[2021-02-07] MEDS: Adenosine 6 MG/2 ML VIAL IVPUSH (12:10)
--- NOTE | 2021-02-07 12:58 | PM.CNCAR ---
History of Present Illness History of Present Illness Date of Service: 02/07/21 Requesting physician: Lopez Soriano Consult reason: congestive heart failure Chief complaint: Chf, SVT Narrative: I was requested to see Brice in cardiology consultation today for decompensated congestive heart failure. He is a pleasant 70-year-old male, accompanied by his at bedside. Cardiology consult was sought because of rapid heart rate with narrow complex tachycardia that was noted on the monitor initially while performing echocardiogram subsequently confirmed by pvc monitor and 12 lead EKG consistent with SVT. He was given 6 and 12 mg of adenosine with conversion to normal sinus rhythm. However patient mainly presented to the hospital with progressive shortness of breath. Initially started feeling like he was having congestion and some increased work of breathing over the last 2 weeks. He then was getting concerned over the last 3-4 days started having more shortness of breath also noticed about 5-6 lb of weight gain as was not able to laid down flat and started having symptoms of burping. He when she decided come to the Emergency was noted to be in decompensated congestive heart failure with significantly elevated BNP as well as chest x-ray and CT finding consistent with pulmonary edema. He says he never had prior history of congestive heart failure that he knows of. About 6 years ago he had undergone 4 vessel coronary artery bypass grafting at [facility] for symptoms of exertional shortness of breath, diaphoresis and burping. He has not had a follow-up with motorman/woman in the recent time. Only medications at home he was on was aspirin therapy. Was not on statin therapy. He does not know why. Since yesterday's feeling better. However noted to have rapid heart rate, he said he has been noticing that for the past few days while at rest. Review of Systems Constitutional: Constitutional: Denies body ache(s), Denies chills, Reports fatigue and Denies fever(s) Eyes: Eyes: Reports no additional eye complaints ENT: Reports system reviewed and no additional complaints, except as documented Cardiovascular: Cardiovascular: Denies chest pain, Reports rapid heart rate, Reports dyspnea on exertion, Reports orthopnea and Reports other (Weight gain as well as burping) Respiratory: Respiratory: Reports dyspnea on exertion Gastrointestinal: Gastrointestinal: Reports no additional gastrointestinal complaints Genitourinary: Genitourinary: Reports no additional male genitourinary complaints Musculoskeletal: Musculoskeletal: Reports no additional musculoskeletal complaints Integumentary/Breasts: Skin/Breast: Reports system reviewed and no additional complaints, except as docu Neurologic: Reports system reviewed and no additional complaints, except as documented Psychiatric: Psychiatric: Reports no additional psychiatric complaints Endocrine: Endocrine: Reports no additional endocrine complaints and Reports fatigue Hematologic/Lymphatic: Hematologic/Lymphatic: Reports no additional hematologic/lymphatic complaints PMFSH Past Medical History Medical History CAD (coronary artery disease) [place] Surgical History Surgical History S/P quadruple vessel bypass Social History Social History Alcohol intake: never Patient Tobacco Use Status: Former Tobacco user Smoked in Last 30 Days: Yes Use of substances other than those prescribed or required for medical reasons: No Advance Directives: No Advance Directives Information Provided: Yes service: No Current occupational status: employed Meds Allergies Allergy/AdvReac Type Severity Reaction Status Date / Time No Known Allergies Allergy Verified 02/06/21 14:07 Active Medications: Current Medications Acetaminophen (Acetaminophen 325 Mg Tablet) 650 mg PO Q6H PRN PRN Reason: Pain, Mild (Pain Scale 1-3) Last Admin: 02/07/21 05:43 Dose: 650 mg Documented by: Enoxaparin Sodium (Enoxaparin Sodium 40 Mg/0.4 Ml Syringe) 40 mg SUBCUT Q24H [facility] Last Admin: 02/06/21 19:37 Dose: 40 mg Documented by: Furosemide (Furosemide 40 Mg/4 Ml Vial) 40 mg IVPUSH Q12H [facility]; Protocol Last Admin: 02/07/21 08:49 Dose: 40 mg Documented by: Melatonin (Melatonin 3 Mg Tablet) 6 mg PO BEDTIME PRN PRN Reason: Insomnia Metoprolol Tartrate (Metoprolol Tartrate 25 Mg Tablet) 25 mg PO BID [facility]; Protocol Last Admin: 02/07/21 08:35 Dose: 25 mg Documented by: Pharmacy Consult (Consult Rx Perform Med Rec) 1 each MISCELLANE ONCE PRN PRN Reason: Consult order Sodium Chloride (0.9 % Sodium Chloride Flush 3 Ml Syringe) 3 ml IVFLUSH QSHIFT [facility] Last Admin: 02/07/21 08:38 Dose: 3 ml Documented by: Home Medications Medication Instructions Recorded Confirmed Last Taken Type aspirin 81 mg tablet,delayed 81 mg PO DAILY 02/07/21 02/07/21 Unknown History release Physical Exam Vital Signs: Vital Signs: Last Vital Signs Temp 97.7 F 02/07/21 07:38 Pulse 101 H 02/07/21 12:10 Resp 18 02/07/21 11:11 BP 110/80 02/07/21 12:10 Pulse Ox 96 02/07/21 08:47 Body Mass Index 30.7 Const: General: cooperative, comfortable, alert, awake and in distress mild and respiratory Nutritional Appearance: overweight Orientation/consciousness: patient oriented x3 Limitations: no limitations HENMT: Head: Yes normocephalic and Yes atraumatic Neck: Neck: Yes trachea midline, Yes supple and Yes JVD Chest: Chest palpation & inspection: normal inspection of the chest and other (Well-healed sternotomy) Resp: Effort & Inspection: normal respiratory effort Auscultation: rales Cardio: Jugular venous distension: JVD Palpation: abnormal PMI displaced PMI Rate: regular rate Rhythm: abnormal rhythm with ectopic beats Heart sounds: S1 normal heart sound present, S2 normal heart sound present, no click, Gallop heart sound present, no murmurs and no rubs GI: Inspection: Yes obesity Auscultation: normal bowel sounds Skin: General skin exam: no rashes or lesions noted Neuro: General: patient oriented x3 and no focal motor deficits Extrem: General: No clubbing, No cyanosis and Yes edema Psych: Appearance: grossly normal Objective Labs and Meds Result diagrams: 02/07/21 06:14 02/07/21 06:14 Lab results: Laboratory Results - last 24 hr 02/06/21 02/06/21 02/06/21 14:23 14:24 14:24 WBC 7.7 RBC 4.72 Hgb 13.2 L Hct 41.7 L MCV 88.3 MCH 28.0 MCHC 31.7 RDW 15.4 Plt Count 175 MPV 11.8 Immature Gran % (Auto) 0.1 Neut % (Auto) 62.0 Lymph % (Auto) 27.6 [place] % (Auto) 8.9 Eos % (Auto) 0.9 Baso % (Auto) 0.5 Lymph # (Auto) 2.1 [place] # (Auto) 0.7 Eos # (Auto) 0.1 Baso # (Auto) 0.0 Abs Immat Gran (auto) 0.01 Absolute Neuts (auto) 4.8 Absolute Nucleated RBC 0.000 Nucleated RBC % (auto) 0.0 D-Dimer High Sensitivty 390 Sodium Potassium Chloride Carbon Dioxide Anion Gap BUN Creatinine Estim Creat Clear Calc Estimated GFR POC Glucose 152 H Random Glucose Estimat Average Glucose Hemoglobin A1c % Lactic Acid Lactic Acid Fup @ 2Hr Calcium Troponin I High Sens B-Natriuretic Peptide Triglycerides Cholesterol LDL Cholesterol, Calc HDL Cholesterol Influenza Type A (PCR) Influenza Type B (PCR) RSV RNA Qual (PCR) SARS-CoV-2 RNA (RT-PCR) 02/06/21 02/06/21 02/06/21 14:24 14:24 14:55 WBC RBC Hgb Hct MCV MCH MCHC RDW Plt Count MPV Immature Gran % (Auto) Neut % (Auto) Lymph % (Auto) [place] % (Auto) Eos % (Auto) Baso % (Auto) Lymph # (Auto) [place] # (Auto) Eos # (Auto) Baso # (Auto) Abs Immat Gran (auto) Absolute Neuts (auto) Absolute Nucleated RBC Nucleated RBC % (auto) D-Dimer High Sensitivty Sodium 144 Potassium 3.7 Chloride 105 Carbon Dioxide 28 Anion Gap 15 BUN 18 H Creatinine 0.92 Estim Creat Clear Calc 75.7 Estimated GFR > 60 POC Glucose Random Glucose 138 H Estimat Average Glucose Hemoglobin A1c % Lactic Acid Lactic Acid Fup @ 2Hr Calcium 8.8 Troponin I High Sens 125.3 H* B-Natriuretic Peptide 1273 H Triglycerides Cholesterol LDL Cholesterol, Calc HDL Cholesterol Influenza Type A (PCR) NEGATIVE Influenza Type B (PCR) NEGATIVE RSV RNA Qual (PCR) NEGATIVE SARS-CoV-2 RNA (RT-PCR) NEGATIVE 02/06/21 02/06/21 02/06/21 16:35 16:35 18:37 WBC RBC Hgb Hct MCV MCH MCHC RDW Plt Count MPV Immature Gran % (Auto) Neut % (Auto) Lymph % (Auto) [place] % (Auto) Eos % (Auto) Baso % (Auto) Lymph # (Auto) [place] # (Auto) Eos # (Auto) Baso # (Auto) Abs Immat Gran (auto) Absolute Neuts (auto) Absolute Nucleated RBC Nucleated RBC % (auto) D-Dimer High Sensitivty Sodium Potassium Chloride Carbon Dioxide Anion Gap BUN Creatinine Estim Creat Clear Calc Estimated GFR POC Glucose Random Glucose Estimat Average Glucose 103 Hemoglobin A1c % 5.2 Lactic Acid 2.7 H* Lactic Acid Fup @ 2Hr Calcium Troponin I High Sens 114.4 H* B-Natriuretic Peptide 2133 H Triglycerides Cholesterol LDL Cholesterol, Calc HDL Cholesterol Influenza Type A (PCR) Influenza Type B (PCR) RSV RNA Qual (PCR) SARS-CoV-2 RNA (RT-PCR) 02/06/21 02/06/21 02/07/21 18:37 20:07 06:14 WBC RBC Hgb Hct MCV MCH MCHC RDW Plt Count MPV Immature Gran % (Auto) Neut % (Auto) Lymph % (Auto) [place] % (Auto) Eos % (Auto) Baso % (Auto) Lymph # (Auto) [place] # (Auto) Eos # (Auto) Baso # (Auto) Abs Immat Gran (auto) Absolute Neuts (auto) Absolute Nucleated RBC Nucleated RBC % (auto) D-Dimer High Sensitivty Sodium Potassium Chloride Carbon Dioxide Anion Gap BUN Creatinine Estim Creat Clear Calc Estimated GFR POC Glucose Random Glucose Estimat Average Glucose Hemoglobin A1c % Lactic Acid Lactic Acid Fup @ 2Hr 1.4 Calcium Troponin I High Sens 97.5 H* B-Natriuretic Peptide 1152 H Triglycerides Cholesterol LDL Cholesterol, Calc HDL Cholesterol Influenza Type A (PCR) Influenza Type B (PCR) RSV RNA Qual (PCR) SARS-CoV-2 RNA (RT-PCR) 02/07/21 02/07/21 06:14 06:14 WBC 6.1 RBC 4.32 L Hgb 12.1 L Hct 38.4 L MCV 88.9 MCH 28.0 MCHC 31.5 RDW 15.2 Plt Count 157 L MPV 11.8 Immature Gran % (Auto) 0.3 Neut % (Auto) 60.9 Lymph % (Auto) 27.1 [place] % (Auto) 9.6 Eos % (Auto) 1.3 Baso % (Auto) 0.8 Lymph # (Auto) 1.7 [place] # (Auto) 0.6 Eos # (Auto) 0.1 Baso # (Auto) 0.1 Abs Immat Gran (auto) 0.02 Absolute Neuts (auto) 3.7 Absolute Nucleated RBC 0.000 Nucleated RBC % (auto) 0.0 D-Dimer High Sensitivty Sodium 141 Potassium 4.1 Chloride 100 Carbon Dioxide 32 H Anion Gap 13 BUN 17 H Creatinine 0.90 Estim Creat Clear Calc 77.4 Estimated GFR > 60 POC Glucose Random Glucose 100 Estimat Average Glucose Hemoglobin A1c % Lactic Acid Lactic Acid Fup @ 2Hr Calcium 8.7 Troponin I High Sens B-Natriuretic Peptide Triglycerides 63 Cholesterol 136 LDL Cholesterol, Calc 87 HDL Cholesterol 37 Influenza Type A (PCR) Influenza Type B (PCR) RSV RNA Qual (PCR) SARS-CoV-2 RNA (RT-PCR) EKG on admission shows normal sinus rhythm with nonspecific IVCD with frequent PVCs with nonspecific ST T wave changes. EKG early this morning shows supraventricular tachycardia with rapid ventricular response Imaging Radiologist's impression: Impressions Chest X-Ray 02/06/21 14:07 IMPRESSION: Diffuse groundglass opacity in bilateral lower lobes suggestive of developing infiltrate or atelectasis. Chest CTA 02/06/21 15:30 IMPRESSION: 1. No central or segmental pulmonary embolism. 2. Cardiomegaly including dilatation of the left heart with [id number] bilateral pleural effusions as well as diffuse interstitial prominence and bibasilar atelectasis versus early infiltrates. Findings can be seen in the setting of CHF. 3. Reflux of contrast into the hepatic veins suggesting elevated right heart pressures. VTE: Negative. Assessment and Plan (1) CHF exacerbation: Status: Acute Patient presents with symptoms highly consistent with decompensated congestive heart failure most likely systolic. Echocardiogram will be reviewed. Continue IV diuresis with Lasix. Strict intake and output chart needs to be pursued. Continue to trend labs. Replace electrolytes as needed. Based on the echocardiogram finding may require further ischemic workup either by cardiac catheterization or stress test. Add Aldactone 12.5 mg to his regimen. Follow renal function. Also add low-dose Diovan 40 mg b.i.d. for afterload reduction. Metoprolol as below. Heart failure education needs to be provided. (2) CAD (coronary artery disease): Status: Acute Coronary artery disease with prior coronary artery bypass grafting. Recent onset congestive heart failure with symptoms of burping are concerning for myocardial ischemia. May have bypass graft closures. Will require further workup based on echocardiographic finding. Currently his troponin elevation or most likely due to decompensated heart failure not likely due to acute coronary syndrome. Continue aspirin therapy. Beta-aditya as above. Start on high-intensity statin therapy with atorvastatin 80 mg daily for his underlying coronary artery disease. Was surprised that he was not on any maintenance medical therapy for CAD. (3) SVT (supraventricular tachycardia): Status: Acute Supraventricular tachycardia. Suppressed with adenosine. Currently doing well. Start metoprolol therapy 25 mg q.6 hours to suppress supraventricular arrhythmias as well as help with heart failure syndrome. Check TSH. Continue to monitor electrolytes. Will follow with the patient. Greater than 45 minutes was spent in managing his complex care. Procedures Date of Service Date of Service: 02/07/21
--- NOTE | 2021-02-07 14:44 | P.PNIM_ITS ---
Subjective Subjective Date of Service: 02/07/21 Interval History: no acute events overnight; this a.m. developed narrow complex tachycardia with rates in the 180s. EKG without acute ischemic changes; given adenosine 6 and 12 mg of respectfully With return to sinus rhythm. Denied chest pain throughout the episode Review of Systems denies chest pain Denies shortness of breath except with exertion Denies nausea vomiting diarrhea Physical Exam Vital Signs: Vital Signs: Last Vital Signs Temp 97.7 F 02/07/21 07:38 Pulse 101 H 02/07/21 12:10 Resp 18 02/07/21 11:11 BP 110/80 02/07/21 12:10 Pulse Ox 96 02/07/21 08:47 Body Mass Index 30.7 Objective Data Active Medications Acetaminophen (Acetaminophen 325 Mg Tablet) 650 mg PO Q6H PRN PRN Reason: Pain, Mild (Pain Scale 1-3) Last Admin: 02/07/21 05:43 Dose: 650 mg Documented by: AMADO Enoxaparin Sodium (Enoxaparin Sodium 40 Mg/0.4 Ml Syringe) 40 mg SUBCUT Q24H [facility] Last Admin: 02/06/21 19:37 Dose: 40 mg Documented by: AMADO Furosemide (Furosemide 40 Mg/4 Ml Vial) 40 mg IVPUSH Q12H [facility]; Protocol Last Admin: 02/07/21 08:49 Dose: 40 mg Documented by: PATRIC Melatonin (Melatonin 3 Mg Tablet) 6 mg PO BEDTIME PRN PRN Reason: Insomnia Metoprolol Tartrate (Metoprolol Tartrate 25 Mg Tablet) 25 mg PO BID [facility]; Protocol Last Admin: 02/07/21 08:35 Dose: 25 mg Documented by: PATRIC Pharmacy Consult (Consult Rx Perform Med Rec) 1 each MISCELLANE ONCE PRN PRN Reason: Consult order Sodium Chloride (0.9 % Sodium Chloride Flush 3 Ml Syringe) 3 ml IVFLUSH QSHIFT [facility] Last Admin: 02/07/21 08:38 Dose: 3 ml Documented by: PATRIC Labs CBC & Chem 7: 02/07/21 06:14 02/07/21 06:14 Labs: Laboratory Results - last 24 hr 02/06/21 02/06/21 02/06/21 14:24 14:24 14:24 MCV 88.3 MCH 28.0 MCHC 31.7 RDW 15.4 Plt Count 175 MPV 11.8 Immature Gran % (Auto) 0.1 Neut % (Auto) 62.0 Lymph % (Auto) 27.6 [place] % (Auto) 8.9 Eos % (Auto) 0.9 Baso % (Auto) 0.5 Lymph # (Auto) 2.1 [place] # (Auto) 0.7 Eos # (Auto) 0.1 Baso # (Auto) 0.0 Abs Immat Gran (auto) 0.01 Absolute Neuts (auto) 4.8 Absolute Nucleated RBC 0.000 Nucleated RBC % (auto) 0.0 D-Dimer High Sensitivty 390 Anion Gap Estim Creat Clear Calc Estimated GFR Random Glucose Estimat Average Glucose Hemoglobin A1c % Lactic Acid Lactic Acid Fup @ 2Hr Calcium Troponin I High Sens 125.3 H* B-Natriuretic Peptide 1273 H Triglycerides Cholesterol LDL Cholesterol, Calc HDL Cholesterol Influenza Type A (PCR) Influenza Type B (PCR) RSV RNA Qual (PCR) SARS-CoV-2 RNA (RT-PCR) 02/06/21 02/06/21 02/06/21 14:24 14:55 16:35 MCV MCH MCHC RDW Plt Count MPV Immature Gran % (Auto) Neut % (Auto) Lymph % (Auto) [place] % (Auto) Eos % (Auto) Baso % (Auto) Lymph # (Auto) [place] # (Auto) Eos # (Auto) Baso # (Auto) Abs Immat Gran (auto) Absolute Neuts (auto) Absolute Nucleated RBC Nucleated RBC % (auto) D-Dimer High Sensitivty Anion Gap 15 Estim Creat Clear Calc 75.7 Estimated GFR > 60 Random Glucose 138 H Estimat Average Glucose Hemoglobin A1c % Lactic Acid Lactic Acid Fup @ 2Hr Calcium 8.8 Troponin I High Sens 114.4 H* B-Natriuretic Peptide 2133 H Triglycerides Cholesterol LDL Cholesterol, Calc HDL Cholesterol Influenza Type A (PCR) NEGATIVE Influenza Type B (PCR) NEGATIVE RSV RNA Qual (PCR) NEGATIVE SARS-CoV-2 RNA (RT-PCR) NEGATIVE 02/06/21 02/06/21 02/06/21 16:35 18:37 18:37 MCV MCH MCHC RDW Plt Count MPV Immature Gran % (Auto) Neut % (Auto) Lymph % (Auto) [place] % (Auto) Eos % (Auto) Baso % (Auto) Lymph # (Auto) [place] # (Auto) Eos # (Auto) Baso # (Auto) Abs Immat Gran (auto) Absolute Neuts (auto) Absolute Nucleated RBC Nucleated RBC % (auto) D-Dimer High Sensitivty Anion Gap Estim Creat Clear Calc Estimated GFR Random Glucose Estimat Average Glucose 103 Hemoglobin A1c % 5.2 Lactic Acid 2.7 H* Lactic Acid Fup @ 2Hr Calcium Troponin I High Sens 97.5 H* B-Natriuretic Peptide Triglycerides Cholesterol LDL Cholesterol, Calc HDL Cholesterol Influenza Type A (PCR) Influenza Type B (PCR) RSV RNA Qual (PCR) SARS-CoV-2 RNA (RT-PCR) 02/06/21 02/07/21 02/07/21 20:07 06:14 06:14 MCV 88.9 MCH 28.0 MCHC 31.5 RDW 15.2 Plt Count 157 L MPV 11.8 Immature Gran % (Auto) 0.3 Neut % (Auto) 60.9 Lymph % (Auto) 27.1 [place] % (Auto) 9.6 Eos % (Auto) 1.3 Baso % (Auto) 0.8 Lymph # (Auto) 1.7 [place] # (Auto) 0.6 Eos # (Auto) 0.1 Baso # (Auto) 0.1 Abs Immat Gran (auto) 0.02 Absolute Neuts (auto) 3.7 Absolute Nucleated RBC 0.000 Nucleated RBC % (auto) 0.0 D-Dimer High Sensitivty Anion Gap Estim Creat Clear Calc Estimated GFR Random Glucose Estimat Average Glucose Hemoglobin A1c % Lactic Acid Lactic Acid Fup @ 2Hr 1.4 Calcium Troponin I High Sens B-Natriuretic Peptide 1152 H Triglycerides Cholesterol LDL Cholesterol, Calc HDL Cholesterol Influenza Type A (PCR) Influenza Type B (PCR) RSV RNA Qual (PCR) SARS-CoV-2 RNA (RT-PCR) 02/07/21 06:14 MCV MCH MCHC RDW Plt Count MPV Immature Gran % (Auto) Neut % (Auto) Lymph % (Auto) [place] % (Auto) Eos % (Auto) Baso % (Auto) Lymph # (Auto) [place] # (Auto) Eos # (Auto) Baso # (Auto) Abs Immat Gran (auto) Absolute Neuts (auto) Absolute Nucleated RBC Nucleated RBC % (auto) D-Dimer High Sensitivty Anion Gap 13 Estim Creat Clear Calc 77.4 Estimated GFR > 60 Random Glucose 100 Estimat Average Glucose Hemoglobin A1c % Lactic Acid Lactic Acid Fup @ 2Hr Calcium 8.7 Troponin I High Sens B-Natriuretic Peptide Triglycerides 63 Cholesterol 136 LDL Cholesterol, Calc 87 HDL Cholesterol 37 Influenza Type A (PCR) Influenza Type B (PCR) RSV RNA Qual (PCR) SARS-CoV-2 RNA (RT-PCR) Assessment and Plan (1) SVT (supraventricular tachycardia): Status: Acute (2) CAD (coronary artery disease): Status: Acute (3) CHF exacerbation: Status: Acute Assessment and Plan: 70-year-old male with a known history of coronary artery disease status post quadruple bypass 6 years remote presents with approximately 1 week of worsening shortness of breath with exertion.? He states this began with what he thought was a cold/sinus infection but progressed to the point where he could not walk across the room without having to stop and put his hands on his hips to breathe.? He states at no time did he experience any chest pain related to a shortness of breath.? Workup consistent with CHF. This a.m. developed supraventricular tachycardia that responded to adenosine 1. CHF with known coronary artery disease ? ? Troponin mildly elevated at 120 down to 97.5 this a.m. As per Cardiology, will increase metoprolol to 25 mg p.o. q.6 hours; Diovan 40 daily for afterload reduction; Aldactone 12.5 daily Echocardiogram pending 2. Coronary artery disease ? ? Seen by Cardiology; further imaging based on the results of echo in forthcoming data 3. Hyperlipidemia Start Lipitor 80 mg daily. Follow-up liver enzymesas appropriate 4. Full code ? ? Lovenox Quality Stroke Does the patient have a stroke diagnosis?: No VTE Prior VTE?: No VTE Risk Level:: Medical - moderate - high VTE Device Contraindication: Treatment Not Indicated VTE Drug Contraindication: N/A - Med Ordered
--- NOTE | 2021-02-07 15:02 | PC.NURSE ---
this repairer typewriter called [facility] to give report, spoke with Red Lead Burner Karen, per Karen, the receiving RN is on break and she is not able to locate the nurse that is covering her. Karen states if no call back in 15 minutes bring the pt to the unit. Ed charge nurse aware.
[2021-02-07] MEDS: Spironolactone 25 MG TABLET 12.5 MG PO (15:40)
[2021-02-07] MEDS: Valsartan 40 MG TABLET PO (15:41)
[2021-02-07] MEDS: Enoxaparin Sodium 40 MG/0.4 ML SYRINGE SUBCUT (17:48)
[2021-02-08] VITALS (11 sets, daily range): BP systolic 90–110; BP diastolic 52–75; PULSE 75–110; RESP 16–18; TEMP 36.1–36.4; O2SAT 92–98
--- NOTE | 2021-02-08 | ECG_ITS ---
Test Reason : CP Blood Pressure : / mmHG Vent. Rate : 112 BPM Atrial Rate : 089 BPM P-R Int : 000 ms QRS Dur : 128 ms QT Int : 366 ms P-R-T Axes : 000 055 178 degrees QTc Int : 499 ms Atrial fibrillation with rapid ventricular response with premature ventricular or aberrantly conducted complexes Non-specific intra-ventricular conduction block Nonspecific T wave abnormality Abnormal ECG Atrial fibrillation is new Referred By: Lopez Soriano Electronically Signed By:DORINA OVERTON MD
--- NOTE | 2021-02-08 00:21 | PC.NURSE ---
BP noted to be soft upon assessmet. Dr. Valdez notified, orthostatics ordered, BPs still low. 84/52 being the last reading. Pt asymptomatic, no complaints. Tolerated orthos well. Dr. Valdez aware, ordered to closely monitor.
[2021-02-08 08:14] LABS: Basophils Percent Auto 0.6 % (0-2); Eosinophils Absolute Auto 0.1 X10*3/uL (0.0-0.4); Eosinophils Percent Auto 1.1 % (0-4); Hematocrit 37.9 % (42.0-52.0); Hemoglobin 11.9 g/dl (14.0-18.0); Imm Gran Abs Auto 0.01 X10*3/uL (0.00-0.03); Imm Gran Pct Auto 0.2 % (0.0-0.4); Lymphocytes Absolute Auto 1.4 X10*3/uL (1.2-4.9); Lymphocytes Percent Auto 20.9 % (20-40); MANUAL DIFF FLAG NO; Mean Corpuscular HGB Conc 31.4 g/dl (31.0-36.0); Mean Corpuscular Hemoglobin 28.1 pg (27.0-33.0); Mean Corpuscular Volume 89.4 fL (80.0-98.0); Mean Platelet Volume 11.3 fL (9.4-12.4); Monocytes Absolute Auto 0.7 X10*3/uL (0.1-1.2); Monocytes Percent Auto 11.1 % (2-11); Neutrophils Absolute Auto 4.4 x10*3/uL (2.0-8.3); Neutrophils Percent Auto 66.1 % (45-73); Platelet Count 154 X10*3/uL (160-400); Red Blood Count 4.24 X10*6/uL (4.60-5.80); Red Cell Distribution Width 15.5 % (11.0-16.0); White Blood Count 6.6 X10*3/uL (4.8-10.8)
[2021-02-08 08:34] LABS: Anion Gap 13 (12-20); Blood Urea Nitrogen 18 mg/dL (9-16); Calcium 8.8 mg/dL (8.4-10.2); Carbon Dioxide 33 mmol/L (22-29); Chloride 100 mmol/L (96-108); Creatinine Clr Calc Pharmacy 80.5; Estimated Glomerular Filt Rate > 60; Glucose Random 91 mg/dL (60-115); Potassium 4.3 mmol/L (3.3-5.1); Sodium 142 mmol/L (135-145)
[2021-02-08 08:40] LABS: B Type Natriuretic Peptide 752 pg/mL (<100)
[2021-02-08 09:11] LABS: Troponin-I High Sensitivity 71.4 ng/L (<3.5-35.0)
[2021-02-08] MEDS: 0.9 % Sodium Chloride Flush 3 ML SYRINGE IVFLUSH ×3 (09:14→19:34)
[2021-02-08] MEDS: Spironolactone 25 MG TABLET 12.5 MG PO (09:14)
[2021-02-08] MEDS: Furosemide 40 MG/4 ML VIAL IVPUSH ×2 (09:14→19:34)
[2021-02-08] MEDS: Metoprolol Tartrate 25 MG TABLET PO ×3 (09:15→18:02)
[2021-02-08] MEDS: Acetaminophen 325 MG TABLET 650 MG PO (10:02)
--- NOTE | 2021-02-08 10:19 | P.PNCA_ITS ---
Subjective Subjective Date of Service: 02/08/21 Principal diagnosis: CHF Interval history: Patient says he is breathing better but is still short of breath. Last night had low blood pressure. No lightheadedness or syncope. No further arrhythmias or SVT. Echocardiogram shows severely reduced LV ejection fraction 20-25%. Overall diuresed well. Review of Systems Constitutional: Reports no additional constitutional complaints Cardiovascular: Denies chest pain, Denies lightheadedness, Denies Loss of Consciousness, Denies palpitations and Reports dyspnea on exertion Respiratory: Reports no additional respiratory complaints and Reports dyspnea on exertion Gastrointestinal: Reports no additional gastrointestinal complaints Genitourinary: Reports no additional male genitourinary complaints Musculoskeletal: Reports no additional musculoskeletal complaints Skin/Breast: Reports system reviewed and no additional complaints, except as docu Reports system reviewed and no additional complaints, except as documented Psychiatric: Reports no additional psychiatric complaints Endocrine: Denies palpitations Physical Exam Vital Signs: Last Vital Signs Temp 97.6 F 02/08/21 08:00 Pulse 80 02/08/21 09:15 Resp 18 02/08/21 08:00 BP 101/60 02/08/21 09:15 Pulse Ox 94 02/08/21 08:00 Body Mass Index 31.0 Const General: cooperative, alert, awake and in distress mild and respiratory Nutritional Appearance: obese and overweight Orientation/consciousness: patient oriented x3 Limitations: no limitations Neck Neck: Yes trachea midline, Yes supple and Yes JVD Resp Effort & Inspection: normal respiratory effort Auscultation: no crackles, wheezes and diminished lung sounds Cardio Jugular venous distension: JVD Palpation: abnormal PMI displaced PMI Rate: regular rate Rhythm: regular rhythm Heart sounds: S1 normal heart sound present, S2 normal heart sound present, no click, Gallop heart sound present, no murmurs and no rubs GI Auscultation: normal bowel sounds Skin General skin exam: no rashes or lesions noted Neuro General: patient oriented x3 and no focal motor deficits Extrem General: No clubbing, No cyanosis and Yes edema Psych Appearance: grossly normal Objective Labs and Meds Result diagrams: 02/08/21 08:07 02/08/21 08:07 Lab results: Laboratory Results - last 24 hr 02/08/21 02/08/21 02/08/21 08:07 08:07 08:07 WBC 6.6 RBC 4.24 L Hgb 11.9 L Hct 37.9 L MCV 89.4 MCH 28.1 MCHC 31.4 RDW 15.5 Plt Count 154 L MPV 11.3 Immature Gran % (Auto) 0.2 Neut % (Auto) 66.1 Lymph % (Auto) 20.9 [place] % (Auto) 11.1 H Eos % (Auto) 1.1 Baso % (Auto) 0.6 Lymph # (Auto) 1.4 [place] # (Auto) 0.7 Eos # (Auto) 0.1 Baso # (Auto) 0.0 Abs Immat Gran (auto) 0.01 Absolute Neuts (auto) 4.4 Absolute Nucleated RBC 0.000 Nucleated RBC % (auto) 0.0 Sodium 142 Potassium 4.3 Chloride 100 Carbon Dioxide 33 H Anion Gap 13 BUN 18 H Creatinine 0.87 Estim Creat Clear Calc 80.5 Estimated GFR > 60 Random Glucose 91 Calcium 8.8 Troponin I High Sens B-Natriuretic Peptide 752 H 02/08/21 08:07 WBC RBC Hgb Hct MCV MCH MCHC RDW Plt Count MPV Immature Gran % (Auto) Neut % (Auto) Lymph % (Auto) [place] % (Auto) Eos % (Auto) Baso % (Auto) Lymph # (Auto) [place] # (Auto) Eos # (Auto) Baso # (Auto) Abs Immat Gran (auto) Absolute Neuts (auto) Absolute Nucleated RBC Nucleated RBC % (auto) Sodium Potassium Chloride Carbon Dioxide Anion Gap BUN Creatinine Estim Creat Clear Calc Estimated GFR Random Glucose Calcium Troponin I High Sens 71.4 H* B-Natriuretic Peptide Progress Note: A&P Assessment and plan (1) CHF exacerbation: Status: Acute Assessment and Plan: Decompensated congestive heart failure due to systolic dysfunction secondary to ischemic cardiomyopathy is with severe LV systolic dysfunction. Will require further ischemic workup, most important would be cardiac catheterization to evaluate graft as well as lower brule coronary anatomy as well as evaluate hemodynamics. Patient still not completely ready for the same. Still remains short of breath. Continue IV diuresis with Lasix 40 mg IV b.i.d.. Strict intake and output chart. Continue to trend electrolytes and BMP. Replace electrolytes as needed. Continue with neurohormonal modulation with spironolactone Diovan and metoprolol at this point time. Low blood pressures expected. As long as he is not symptomatic continue to not hold medications unless as systolic blood pressure is less than 90 or patient is symptomatic. Discussed with patient management of heart failure as well as further workup req uired. Need for neurohormonal modulation was discussed as well. He understands and agrees. (2) SVT (supraventricular tachycardia): Status: Acute Assessment and Plan: Supraventricular tachycardia which is suppressed currently on metoprolol therapy. Continue the same. Would switch from q.i.d. to q.6 dosing to avoid short duration of dosing that may cause low blood pressure. Eventually was switched to 50 mg q.12 hours. Avoid stimulants. Will follow with you. Thank you for allowing me to partake in his care Fall Risk Details Current Medications: Current Medications Acetaminophen (Acetaminophen 325 Mg Tablet) 650 mg PO Q6H PRN PRN Reason: Pain, Mild (Pain Scale 1-3) Last Admin: 02/08/21 10:02 Dose: 650 mg Documented by: Enoxaparin Sodium (Enoxaparin Sodium 40 Mg/0.4 Ml Syringe) 40 mg SUBCUT Q24H [facility] Last Admin: 02/07/21 17:48 Dose: 40 mg Documented by: Furosemide (Furosemide 40 Mg/4 Ml Vial) 40 mg IVPUSH Q12H [facility]; Protocol Last Admin: 02/08/21 09:14 Dose: 40 mg Documented by: Melatonin (Melatonin 3 Mg Tablet) 6 mg PO BEDTIME PRN PRN Reason: Insomnia Metoprolol Tartrate (Metoprolol Tartrate 25 Mg Tablet) 25 mg PO QID [facility]; Protocol Last Admin: 02/08/21 09:15 Dose: 25 mg Documented by: Pharmacy Consult (Consult Rx Perform Med Rec) 1 each MISCELLANE ONCE PRN PRN Reason: Consult order Sodium Chloride (0.9 % Sodium Chloride Flush 3 Ml Syringe) 3 ml IVFLUSH QSHIFT [facility] Last Admin: 02/08/21 09:14 Dose: 3 ml Documented by: Spironolactone (Spironolactone 25 Mg Tablet) 12.5 mg PO DAILY [facility]; Protocol Last Admin: 02/08/21 09:14 Dose: 12.5 mg Documented by: Time Spent With Patient Time: Total time spent is greater than 50% in coordination of care (as documented) at patient's floor/unit and/or counseling patient: Time with patient: 25 - 35 minutes Progress Note: Quality Stroke Does the patient have a stroke diagnosis?: No Procedures Date of Service Date of Service: 02/08/21
[2021-02-08] MEDS: Atorvastatin Calcium 80 MG TABLET PO (14:01)
[2021-02-08] MEDS: Aspirin 81 MG TAB.CHEW PO (14:02)
--- NOTE | 2021-02-08 14:35 | P.PNIM_ITS ---
Subjective Subjective Date of Service: 02/08/21 Interval History: breathing better but still short of breath with exertion. Diuresing well with b.i.d. IV Lasix Review of Systems denies chest pain Admitted shortness of breath with mild exertion Denies nausea vomiting diarrhea Physical Exam Vital Signs: Vital Signs: Last Vital Signs Temp 97.6 F 02/08/21 08:00 Pulse 80 02/08/21 14:01 Resp 18 02/08/21 08:00 BP 101/60 02/08/21 14:01 Pulse Ox 94 02/08/21 08:00 Body Mass Index 31.0 Const: Other: Awake alert oriented x3 no acute distress no chest pain Resp: Other: Clear but diminished at bases; no rales rhonchi or wheezes Cardio: Other: Regular rate and rhythm; no S4; positive S1-S2; no S3 there is a 2/6 systolic murmur best heard at the apex GI: Other: Soft nontender nondistended with normoactive bowel sounds Extrem: Other: 1+ edema bilaterally Objective Data Active Medications Acetaminophen (Acetaminophen 325 Mg Tablet) 650 mg PO Q6H PRN PRN Reason: Pain, Mild (Pain Scale 1-3) Last Admin: 02/08/21 10:02 Dose: 650 mg Documented by: JESS Aspirin (Aspirin 81 Mg Tab.Chew) 81 mg PO DAILY [facility] Last Admin: 02/08/21 14:02 Dose: 81 mg Documented by: JESS Atorvastatin Calcium (Atorvastatin Calcium 80 Mg Tablet) 80 mg PO DAILY [facility] Last Admin: 02/08/21 14:01 Dose: 80 mg Documented by: JESS Enoxaparin Sodium (Enoxaparin Sodium 40 Mg/0.4 Ml Syringe) 40 mg SUBCUT Q24H [facility] Last Admin: 02/07/21 17:48 Dose: 40 mg Documented by: CHICOIC Furosemide (Furosemide 40 Mg/4 Ml Vial) 40 mg IVPUSH Q12H [facility]; Protocol Last Admin: 02/08/21 09:14 Dose: 40 mg Documented by: JESS Melatonin (Melatonin 3 Mg Tablet) 6 mg PO BEDTIME PRN PRN Reason: Insomnia Metoprolol Tartrate (Metoprolol Tartrate 25 Mg Tablet) 25 mg PO RQ6H [facility]; P rotocol Pharmacy Consult (Consult Rx Perform Med Rec) 1 each MISCELLANE ONCE PRN PRN Reason: Consult order Sodium Chloride (0.9 % Sodium Chloride Flush 3 Ml Syringe) 3 ml IVFLUSH QSHIFT [facility] Last Admin: 02/08/21 09:14 Dose: 3 ml Documented by: JESS Spironolactone (Spironolactone 25 Mg Tablet) 12.5 mg PO DAILY [facility]; Protocol Last Admin: 02/08/21 09:14 Dose: 12.5 mg Documented by: JESS Labs CBC & Chem 7: 02/08/21 08:07 02/08/21 08:07 Labs: Laboratory Results - last 24 hr 02/08/21 02/08/21 02/08/21 08:07 08:07 08:07 MCV 89.4 MCH 28.1 MCHC 31.4 RDW 15.5 Plt Count 154 L MPV 11.3 Immature Gran % (Auto) 0.2 Neut % (Auto) 66.1 Lymph % (Auto) 20.9 [place] % (Auto) 11.1 H Eos % (Auto) 1.1 Baso % (Auto) 0.6 Lymph # (Auto) 1.4 [place] # (Auto) 0.7 Eos # (Auto) 0.1 Baso # (Auto) 0.0 Abs Immat Gran (auto) 0.01 Absolute Neuts (auto) 4.4 Absolute Nucleated RBC 0.000 Nucleated RBC % (auto) 0.0 Anion Gap 13 Estim Creat Clear Calc 80.5 Estimated GFR > 60 Random Glucose 91 Calcium 8.8 Troponin I High Sens B-Natriuretic Peptide 752 H 02/08/21 08:07 MCV MCH MCHC RDW Plt Count MPV Immature Gran % (Auto) Neut % (Auto) Lymph % (Auto) [place] % (Auto) Eos % (Auto) Baso % (Auto) Lymph # (Auto) [place] # (Auto) Eos # (Auto) Baso # (Auto) Abs Immat Gran (auto) Absolute Neuts (auto) Absolute Nucleated RBC Nucleated RBC % (auto) Anion Gap Estim Creat Clear Calc Estimated GFR Random Glucose Calcium Troponin I High Sens 71.4 H* B-Natriuretic Peptide Microbiology Microbiology Results: Microbiology 02/06/21 16:35 Blood Culture - Preliminary Blood - Venous No growth after 24 hours. 02/06/21 16:35 Blood Culture - Preliminary Blood - Venous No growth after 24 hours. Assessment and Plan (1) CHF exacerbation: Status: Acute (2) SVT (supraventricular tachycardia): Status: Acute (3) CAD (coronary artery disease): Status: Acute Assessment and Plan: 70-year-old male with a known history of coronary artery disease status post quadruple bypass 6 years remote presents with approximately 1 week of worsening shortness of breath with exertion.? ER workup consistent with CHF. Developed SVT which responded to adenosine; has remained HD stable overnight 1. CHF with known coronary artery disease ? ? Troponin mildly elevated at 120 down to 71.4 this a.m. As per Cardiology, will increase metoprolol to 25 mg p.o. q.6 hours; Diovan 40 daily for afterload reduction; Aldactone 12.5 daily echo demonstrates moderately decreased LV function with EF estimated at 20-25% 2. Coronary artery disease ? ? as per Cardiology, will need catheterization. cardiology to arrange 3. Hyperlipidemia Start Lipitor 80 mg daily. Follow-up liver enzymesas appropriate 4. Full code ? ? Lovenox Quality Stroke Does the patient have a stroke diagnosis?: No VTE Prior VTE?: No VTE Risk Level:: Medical - moderate - high VTE Device Contraindication: Treatment Not Indicated VTE Drug Contraindication: N/A - Med Ordered
[2021-02-08] MEDS: Enoxaparin Sodium 40 MG/0.4 ML SYRINGE SUBCUT (18:01)
[2021-02-08 19:28] LABS: Hematocrit 38.3 % (42.0-52.0); Hemoglobin 11.9 g/dl (14.0-18.0); Mean Corpuscular HGB Conc 31.1 g/dl (31.0-36.0); Mean Corpuscular Hemoglobin 27.9 pg (27.0-33.0); Mean Corpuscular Volume 89.7 fL (80.0-98.0); Mean Platelet Volume 11.5 fL (9.4-12.4); Platelet Count 148 X10*3/uL (160-400); Red Blood Count 4.27 X10*6/uL (4.60-5.80); Red Cell Distribution Width 15.4 % (11.0-16.0); White Blood Count 6.7 X10*3/uL (4.8-10.8)
[2021-02-08] MEDS: Enoxaparin Sodium 60 MG/0.6 ML SYRINGE 50 MG SUBCUT (19:33)
[2021-02-08 19:34] LABS: INTERNATIONAL NORM RATIO 1.2 (0.9-1.1); Prothrombin Time 13.7 SEC (9.9-13.0)
[2021-02-08 19:36] LABS: Partial Thromboplastin Time 37.3 SEC (24.1-38.0)
[2021-02-08] MEDS: Amiodarone/Dextrose 150 MG/100 ML PLAST..BAG 600 MG IV (20:14)
[2021-02-08] MEDS: Amiodarone HCL 900 MG in 0.9 % Sodium Chloride 500 ML 34.53 MG IVCONT (20:15)
[2021-02-09] VITALS (8 sets, daily range): BP systolic 83–121; BP diastolic 53–83; PULSE 75–132; RESP 18–20; TEMP 36.1–36.6; O2SAT 93–99
[2021-02-09] MEDS: Metoprolol Tartrate 25 MG TABLET PO ×4 (00:15→17:26)
[2021-02-09] MEDS: 0.9 % Sodium Chloride Flush 3 ML SYRINGE IVFLUSH ×3 (00:16→20:31)
[2021-02-09] MEDS: Aspirin 81 MG TAB.CHEW PO (07:46)
[2021-02-09] MEDS: Atorvastatin Calcium 80 MG TABLET PO (07:46)
[2021-02-09] MEDS: Furosemide 40 MG/4 ML VIAL IVPUSH ×2 (07:46→20:31)
[2021-02-09] MEDS: Spironolactone 25 MG TABLET 12.5 MG PO (07:46)
[2021-02-09] MEDS: Enoxaparin Sodium 100 MG/ML SYRINGE 90 MG SUBCUT ×2 (07:47→20:30)
[2021-02-09 08:11] LABS: MANUAL DIFF FLAG NO
[2021-02-09 08:13] LABS: Basophils Percent Auto 0.6 % (0-2); Eosinophils Absolute Auto 0.1 X10*3/uL (0.0-0.4); Hematocrit 42.2 % (42.0-52.0); Imm Gran Abs Auto 0.02 X10*3/uL (0.00-0.03); Imm Gran Pct Auto 0.3 % (0.0-0.4); Lymphocytes Absolute Auto 1.4 X10*3/uL (1.2-4.9); Lymphocytes Percent Auto 21.1 % (20-40); Mean Corpuscular HGB Conc 30.8 g/dl (31.0-36.0); Mean Corpuscular Hemoglobin 27.8 pg (27.0-33.0); Mean Corpuscular Volume 90.4 fL (80.0-98.0); Mean Platelet Volume 12.2 fL (9.4-12.4); Monocytes Absolute Auto 0.8 X10*3/uL (0.1-1.2); Monocytes Percent Auto 11.2 % (2-11); Neutrophils Absolute Auto 4.4 x10*3/uL (2.0-8.3); Neutrophils Percent Auto 65.8 % (45-73); Platelet Count 169 X10*3/uL (160-400); Red Blood Count 4.67 X10*6/uL (4.60-5.80); Red Cell Distribution Width 15.3 % (11.0-16.0); White Blood Count 6.7 X10*3/uL (4.8-10.8)
[2021-02-09 08:29] LABS: Anion Gap 19 (12-20); Blood Urea Nitrogen 21 mg/dL (9-16); Calcium 9.1 mg/dL (8.4-10.2); Carbon Dioxide 31 mmol/L (22-29); Chloride 98 mmol/L (96-108); Creatinine Clr Calc Pharmacy 83.4; Estimated Glomerular Filt Rate > 60; Glucose Random 108 mg/dL (60-115); Potassium 4.6 mmol/L (3.3-5.1); Sodium 143 mmol/L (135-145)
[2021-02-09 08:34] LABS: B Type Natriuretic Peptide 926 pg/mL (<100)
[2021-02-09] MEDS: Metoprolol Tartrate 5 MG/5 ML VIAL IVPUSH (08:55)
--- NOTE | 2021-02-09 11:23 | P.PNCA_ITS ---
Subjective Subjective Date of Service: 02/09/21 Principal diagnosis: CHF Interval history: Patient converted to rapid irregular heartbeat yesterday, consistent with atrial fibrillation. Right away was started on anticoagulation with Lovenox as well as IV amiodarone drip. Despite that patient has remained in rapid heart rate overnight. Says he has not slept overnight and has shortness of breath and burping all night. No chest discomfort. He says that he has both physically and emotionally tired at this time. Denies any palpitations or lightheadedness. Blood pressure was low overnight but this morning appear to be okay. Has received IV Lopressor this morning with borderline slow heart rate at 98. Currently not complaining of his burping. His burping symptoms are concerning however they were symptoms prior to him requiring coronary artery bypass grafting Review of Systems Constitutional: Reports fatigue Eyes: Reports no additional eye complaints Cardiovascular: Denies chest pain, Denies lightheadedness, Denies Loss of Consciousness, Denies palpitations, Reports dyspnea on exertion and Reports other (Burping) Respiratory: Reports no additional respiratory complaints and Reports dyspnea on exertion Gastrointestinal: Reports no additional gastrointestinal complaints Musculoskeletal: Reports no additional musculoskeletal complaints Reports system reviewed and no additional complaints, except as documented Psychiatric: Reports no additional psychiatric complaints Endocrine: Reports fatigue and Denies palpitations Physical Exam Vital Signs: Last Vital Signs Temp 97.3 F 02/09/21 07:55 Pulse 132 H 02/09/21 08:55 Resp 18 02/09/21 07:55 BP 112/62 02/09/21 08:55 Pulse Ox 98 02/09/21 07:55 Body Mass Index 31.0 Const General: cooperative, comfortable, in distress mild and respiratory, anxious and tired appearing Nutritional Appearance: overweight Orientation/consciousness: patient oriented x3 Neck Neck: Yes trachea midline, Yes supple and Yes JVD Resp Effort & Inspection: normal respiratory effort Auscultation: no crackles, no rales and wheezes Cardio Jugular venous distension: JVD Rhythm: abnormal rhythm irregularly irregular Heart sounds: S1 normal heart sound present, S2 normal heart sound present, no click, no gallops, no murmurs and no rubs GI Inspection: Yes obesity Auscultation: normal bowel sounds Skin General skin exam: no rashes or lesions noted Neuro General: patient oriented x3 and no focal motor deficits Extrem General: No clubbing, No cyanosis and Yes pedal edema Psych Appearance: grossly normal Affect: Anxious affect present Objective Labs and Meds Result diagrams: 02/09/21 07:46 02/09/21 07:46 Lab results: Laboratory Results - last 24 hr 02/08/21 02/08/21 02/09/21 19:20 19:20 07:46 WBC 6.7 6.7 RBC 4.27 L 4.67 Hgb 11.9 L 13.0 L Hct 38.3 L 42.2 MCV 89.7 90.4 MCH 27.9 27.8 MCHC 31.1 30.8 L RDW 15.4 15.3 Plt Count 148 L 169 MPV 11.5 12.2 Immature Gran % (Auto) 0.3 Neut % (Auto) 65.8 Lymph % (Auto) 21.1 [place] % (Auto) 11.2 H Eos % (Auto) 1.0 Baso % (Auto) 0.6 Lymph # (Auto) 1.4 [place] # (Auto) 0.8 Eos # (Auto) 0.1 Baso # (Auto) 0.0 Abs Immat Gran (auto) 0.02 Absolute Neuts (auto) 4.4 Absolute Nucleated RBC 0.000 0.000 Nucleated RBC % (auto) 0.0 0.0 PT 13.7 H INR 1.2 H APTT 37.3 Sodium Potassium Chloride Carbon Dioxide Anion Gap BUN Creatinine Estim Creat Clear Calc Estimated GFR Random Glucose Calcium B-Natriuretic Peptide 02/09/21 02/09/21 07:46 07:46 WBC RBC Hgb Hct MCV MCH MCHC RDW Plt Count MPV Immature Gran % (Auto) Neut % (Auto) Lymph % (Auto) [place] % (Auto) Eos % (Auto) Baso % (Auto) Lymph # (Auto) [place] # (Auto) Eos # (Auto) Baso # (Auto) Abs Immat Gran (auto) Absolute Neuts (auto) Absolute Nucleated RBC Nucleated RBC % (auto) PT INR APTT Sodium 143 Potassium 4.6 Chloride 98 Carbon Dioxide 31 H Anion Gap 19 BUN 21 H Creatinine 0.84 Estim Creat Clear Calc 83.4 Estimated GFR > 60 Random Glucose 108 Calcium 9.1 B-Natriuretic Peptide 926 H Progress Note: A&P Assessment and plan (1) Atrial fibrillation: Status: Acute Assessment and Plan: New onset atrial fibrillation in this gentleman admitted with acute CHF with severe LV systolic dysfunction with symptoms of burping which are suggestive of possible myocardial ischemia. Will pursue rate control with metoprolol and continue IV amiodarone drip, and will add digoxin 0.25 mg IV push q.6 hours x3 doses. If his rate becomes controlled and he is symptomatic Shaye better with both his burping symptoms as well as heart failure, will pursue cardiac catheterization. However feels rate remains difficult control or he remained symptomatic, will pursue [place] guided cardioversion tomorrow. This was discussed with him in details. If we have to pursue cardioversion, will require post cardioversion anticoagulation uninterrupted at least for 4 weeks and will need to postpone his cardiac catheterization pursue noninvasive ischemic workup with a stress test prior to discharge. This was discussed with him in details. Continue on Lovenox. Overall prognosis is guarded. However patient and patient's understand management well. (2) CHF exacerbation: Status: Acute Assessment and Plan: Congestive heart failure exacerbation with underlying severe LV systolic dysfunction now with atrial fibrillation with rapid ventricular response. Continue diuresis. Strict intake and output chart needs to be pursued. Continue to pursue aggressive rate control and at this succeeds, will hold off on cardioversion and pursue cardiac catheterization to evaluate for coronary and graft anatomy. Continue metoprolol and Diovan for now. Also continue spironolactone unless blood pressure becomes issue in this can be withheld. Continue to trend electrolytes and replace as needed. (3) CAD (coronary artery disease): Status: Acute Assessment and Plan: Coronary artery disease with remote coronary artery bypass grafting. No follow- up since for many years. Symptoms are concerning for myocardial ischemia with symptoms of burping. Will continue aggressive rate control as above. If fails will pursue rhythm control approach and then will require noninvasive ischemic workup. Continue aspirin as well as high-intensity statin therapy. Also currently on metoprolol therapy. Will follow with you. Fall Risk Details Current Medications: Current Medications Acetaminophen (Acetaminophen 325 Mg Tablet) 650 mg PO Q6H PRN PRN Reason: Pain, Mild (Pain Scale 1-3) Last Admin: 02/08/21 10:02 Dose: 650 mg Documented by: Aspirin (Aspirin 81 Mg Tab.Chew) 81 mg PO DAILY [facility] Last Admin: 02/09/21 07:46 Dose: 81 mg Documented by: Atorvastatin Calcium (Atorvastatin Calcium 80 Mg Tablet) 80 mg PO DAILY [facility] Last Admin: 02/09/21 07:46 Dose: 80 mg Documented by: Digoxin (Digoxin 0.5 Mg/2 Ml Ampul) 0.25 mg IVPUSH Q6H [facility] Stop: 02/09/21 23:31 Enoxaparin Sodium (Enoxaparin Sodium 100 Mg/Ml Syringe) 90 mg SUBCUT Q12H [facility] Last Admin: 02/09/21 07:47 Dose: 90 mg Documented by: Furosemide (Furosemide 40 Mg/4 Ml Vial) 40 mg IVPUSH Q12H [facility]; Protocol Last Admin: 02/09/21 07:46 Dose: 40 mg Documented by: Amiodarone HCl 900 mg/ Sodium (Chloride) 518 mls @ 34.533 mls/hr IVCONT .Q15H1M [facility]; Protocol Last Infusion: 02/09/21 02:02 Dose: 0.5 mg/min, 17.27 mls/hr Documented by: Melatonin (Melatonin 3 Mg Tablet) 6 mg PO BEDTIME PRN PRN Reason: Insomnia Metoprolol Tartrate (Metoprolol Tartrate 25 Mg Tablet) 25 mg PO RQ6H [facility]; Protocol Last Admin: 02/09/21 04:59 Dose: 25 mg Documented by: Pharmacy Consult (Consult Rx Perform Med Rec) 1 each MISCELLANE ONCE PRN PRN Reason: Consult order Sodium Chloride (0.9 % Sodium Chloride Flush 3 Ml Syringe) 3 ml IVFLUSH QSHIFT [facility] Last Admin: 02/09/21 00:16 Dose: 3 ml Documented by: Spironolactone (Spironolactone 25 Mg Tablet) 12.5 mg PO DAILY [facility]; Protocol Last Admin: 02/09/21 07:46 Dose: 12.5 mg Documented by: Time Spent With Patient Time: Total time spent is greater than 50% in coordination of care (as documented) at patient's floor/unit and/or counseling patient: Time with patient: 25 - 35 minutes Progress Note: Quality Stroke Does the patient have a stroke diagnosis?: No Procedures Date of Service Date of Service: 02/09/21
[2021-02-09] MEDS: Amiodarone HCL 900 MG in 0.9 % Sodium Chloride 500 ML 17.27 MG IVCONT (11:35)
[2021-02-09] MEDS: Acetaminophen 325 MG TABLET 650 MG PO (12:20)
[2021-02-09] MEDS: Digoxin 0.5 MG/2 ML AMPUL 0.25 MG IVPUSH (13:44)
--- NOTE | 2021-02-09 16:13 | HO.PM.IMPN ---
Subjective Subjective Date of Service: 02/09/21 Interval History: continued AFib overnight with poorly controlled ventricular rate despite amiodarone drip. Seen by Cardiology this a.m. and given IV loading dose of digoxin. this afternoon, patient return to normal sinus rhythm as feeling somewhat better Review of Systems denies chest pain Denies shortness of breath Denies nausea vomiting diarrhea Physical Exam Vital Signs: Vital Signs: Last Vital Signs Temp 96.9 F 02/09/21 15:45 Pulse 79 02/09/21 15:45 Resp 20 02/09/21 15:45 BP 110/58 L 02/09/21 15:45 Pulse Ox 99 02/09/21 15:45 Body Mass Index 31.0 Const: Other: Awake alert oriented x3 no acute distress no chest pain Neck: Other: 3 cm JVD at 45 degrees Resp: Other: Clear but diminished at bases; no rales rhonchi or wheezes Cardio: Other: Regular rate and rhythm; no S4; positive S1-S2; no S3 there is a 2/6 systolic murmur best heard at the apex GI: Other: Soft nontender nondistended with normoactive bowel sounds Extrem: Other: 1+ edema bilaterally Objective Data Active Medications Acetaminophen (Acetaminophen 325 Mg Tablet) 650 mg PO Q6H PRN PRN Reason: Pain, Mild (Pain Scale 1-3) Last Admin: 02/09/21 12:20 Dose: 650 mg Documented by: SILVIA Aspirin (Aspirin 81 Mg Tab.Chew) 81 mg PO DAILY [facility] Last Admin: 02/09/21 07:46 Dose: 81 mg Documented by: SILVIA Atorvastatin Calcium (Atorvastatin Calcium 80 Mg Tablet) 80 mg PO DAILY [facility] Last Admin: 02/09/21 07:46 Dose: 80 mg Documented by: SILVIA Digoxin (Digoxin 0.5 Mg/2 Ml Ampul) 0.25 mg IVPUSH Q6H [facility] Stop: 02/09/21 23:31 Last Admin: 02/09/21 13:44 Dose: 0.25 mg Documented by: SILVIA Enoxaparin Sodium (Enoxaparin Sodium 100 Mg/Ml Syringe) 90 mg SUBCUT Q12H [facility] Last Admin: 02/09/21 07:47 Dose: 90 mg Documented by: SILVIA Furosemide (Furosemide 40 Mg/4 Ml Vial) 40 mg IVPUSH Q12H [facility]; Protocol Last Admin: 02/09/21 07:46 Dose: 40 mg Documented by: SILVIA Amiodarone HCl 900 mg/ Sodium (Chloride) 518 mls @ 34.533 mls/hr IVCONT .Q15H1M [facility]; Protocol Last Admin: 02/09/21 11:35 Dose: 0.5 mg/min, 17.27 mls/hr Documented by: SILVIA Melatonin (Melatonin 3 Mg Tablet) 6 mg PO BEDTIME PRN PRN Reason: Insomnia Metoprolol Tartrate (Metoprolol Tartrate 25 Mg Tablet) 25 mg PO RQ6H [facility]; Protocol Last Admin: 02/09/21 11:43 Dose: 25 mg Documented by: SILVIA Pharmacy Consult (Consult Rx Perform Med Rec) 1 each MISCELLANE ONCE PRN PRN Reason: Consult order Sodium Chloride (0.9 % Sodium Chloride Flush 3 Ml Syringe) 3 ml IVFLUSH QSHIFT [facility] Last Admin: 02/09/21 15:21 Dose: 3 ml Documented by: SILVIA Spironolactone (Spironolactone 25 Mg Tablet) 12.5 mg PO DAILY [facility]; Protocol Last Admin: 02/09/21 07:46 Dose: 12.5 mg Documented by: SILVIA Labs CBC & Chem 7: 02/09/21 07:46 02/09/21 07:46 Labs: Laboratory Results - last 24 hr 02/08/21 02/08/21 02/09/21 19:20 19:20 07:46 MCV 89.7 90.4 MCH 27.9 27.8 MCHC 31.1 30.8 L RDW 15.4 15.3 Plt Count 148 L 169 MPV 11.5 12.2 Immature Gran % (Auto) 0.3 Neut % (Auto) 65.8 Lymph % (Auto) 21.1 Bryan % (Auto) 11.2 H Eos % (Auto) 1.0 Baso % (Auto) 0.6 Lymph # (Auto) 1.4 Bryan # (Auto) 0.8 Eos # (Auto) 0.1 Baso # (Auto) 0.0 Abs Immat Gran (auto) 0.02 Absolute Neuts (auto) 4.4 Absolute Nucleated RBC 0.000 0.000 Nucleated RBC % (auto) 0.0 0.0 PT 13.7 H INR 1.2 H APTT 37.3 Anion Gap Estim Creat Clear Calc Estimated GFR Random Glucose Calcium B-Natriuretic Peptide 02/09/21 02/09/21 07:46 07:46 MCV MCH MCHC RDW Plt Count MPV Immature Gran % (Auto) Neut % (Auto) Lymph % (Auto) Bryan % (Auto) Eos % (Auto) Baso % (Auto) Lymph # (Auto) Bryan # (Auto) Eos # (Auto) Baso # (Auto) Abs Immat Gran (auto) Absolute Neuts (auto) Absolute Nucleated RBC Nucleated RBC % (auto) PT INR APTT Anion Gap 19 Estim Creat Clear Calc 83.4 Estimated GFR > 60 Random Glucose 108 Calcium 9.1 B-Natriuretic Peptide 926 H Microbiology Microbiology Results: Microbiology 02/06/21 16:35 Blood Culture - Preliminary Blood - Venous No growth after 48 hours. 02/06/21 16:35 Blood Culture - Preliminary Blood - Venous No growth after 48 hours. Assessment and Plan (1) CHF exacerbation: Status: Acute (2) Atrial fibrillation: Status: Acute Assessment and Plan: 70-year-old male with a known history of coronary artery disease status post quadruple bypass 6 years remote presents with approximately 1 week of worsening shortness of breath with exertion.? ER workup consistent with CHF. Developed atrial fibrillation which initially responded to adenosine however required amiodarone drip and ultimately did slowed and subsequent conversion to normal sinus rhythm. Patient resting quietly in no acute distress no complaints 1. CHF with known coronary artery disease BNP elevated this a.m.; continue IV diuresis follow labs and replete electrolytes as indicated 2. Atrial fibrillation( returned to NSR after dig) As per Cardiology, will DC amiodarone drip and switch to p.o. loading dose at 400 mg b.i.d. Will DC digoxin 2. Coronary artery disease Per Cardiology, will need catheterization; provided remains in NSR Further imaging as per Cardiology 3. Hyperlipidemia Continue statin as ordered 4. Hypertension Continue metoprolol, Diovan, and Aldactone as ordered. Do not hold unless BP less than 90 or patient symptomatic For BP less than 90 persistently may DC Aldactone 5. Full code ? ? Lovenox Quality Stroke Does the patient have a stroke diagnosis?: No VTE Prior VTE?: No VTE Risk Level:: Medical - moderate - high VTE Device Contraindication: Treatment Not Indicated VTE Drug Contraindication: N/A - Med Ordered
[2021-02-09 17:17] LABS: B Type Natriuretic Peptide 971 pg/mL (<100)
--- NOTE | 2021-02-09 17:27 | ECG_ITS ---
Test Reason : CONFIRM NSR Blood Pressure : / mmHG Vent. Rate : 081 BPM Atrial Rate : 081 BPM P-R Int : 154 ms QRS Dur : 118 ms QT Int : 398 ms P-R-T Axes : 066 051 027 degrees QTc Int : 462 ms Normal sinus rhythm Possible Left atrial enlargement Non-specific intra-ventricular conduction delay Nonspecific ST and T wave abnormality Prolonged QT Abnormal ECG Normal sinus rhythm has replaced Atrial fibrillation Referred By: Lopez Soriano Electronically Signed By:DORINA OVERTON MD
--- NOTE | 2021-02-09 18:35 | P.DS_ITS ---
DS: Providers Provider Date of Service: 02/13/21 Date of admission: 02/06/21 18:18 Primary care physician: Unknown Physician Consults: 02/07/21 11:04 Consult to Cardiology Routine Consulting Provider: Patrick Jones Reason for consultation: tachy Has provider been notified: Yes DS: Diagnosis Discharge Diagnosis (1) Atrial fibrillation: (2) CHF exacerbation: Status: Resolved (3) CAD (coronary artery disease): DS: Summary Hospital Course Hospital Course: 70-year-old male with a known history of coronary artery disease status post quadruple bypass 6 years remote presents with approximately 1 week of worsening shortness of breath with exertion.? He states this began with what he thought was a cold/sinus infection but progressed to the point where he could not walk across the room without having to stop and put his hands on his hips to breathe.? He states at no time did he experience any chest pain related to a shortness of breath.? When queried about his symptoms prior to bypass, patient stated he had a lot of burping .? Workup in the ER included chest x-ray which demonstrated diffuse ground-glass opacities in bilateral lower lobes; D-dimer was mildly elevated prompting a CTA.? CTA failed to demonstrate a central or segmental pulmonary embolism, but did demonstrate cardiomegaly including dilation of the left heart wit small to moderate bilateral pleural effusions as well as diffuse interstitial prominences all in the backdrop BNP over 1999.? Patient was given an inch of nitro paste topically, Lasix 20 , and aspirin. Patient remained hemodynamically stable overnight however on the morning of 02/07/2021 developed a supraventricular tachycardia with rates 150-160 which ultimately broke with adenosine 6 mg and 12 mg respectively. He brought upstairs to telemetry where he remained in normal sinus rhythm until the evening of 02/08/2021 when he went into atrial fibrillation with a rapid ventricular response in the 130s to 150s. As per Cardiology, patient was started on the am iodarone protocol along with metoprolol 25 mg q.6 hours. Over the next 8-10 hours his rate was variable from 90s to 130s with poor control with any movement. Cardiology ordered a digoxin load IV and approximately 2 hours after initial dose patient converted to sinus rhythm. Patient remained in sinus rhythm; cardiology updated and ordered amiodarone drip DC in favor of 400 mg p.o. b.i.d.. Digoxin load was DC'd. Plan is for transfer to [facility] for cardiac catheterization today. Time Spent with Patient Time attestation: Total time spent providing and/or coordinating discharge services: Discharge coordination time: Greater than 30 minutes Quality: Stroke Does the patient have a stroke diagnosis?: No Physical Exam Vital Signs: Vital Signs: Last Vital Signs Temp 96.9 F 02/09/21 15:45 Pulse 79 02/09/21 15:45 Resp 20 02/09/21 15:45 BP 110/58 L 02/09/21 15:45 Pulse Ox 99 02/09/21 15:45 Body Mass Index 31.0 DS: Data Data Completed and Pending Labs on day of discharge: Laboratory Results - last 24 hr 02/08/21 02/08/21 02/09/21 19:20 19:20 07:46 WBC 6.7 6.7 RBC 4.27 L 4.67 Hgb 11.9 L 13.0 L Hct 38.3 L 42.2 MCV 89.7 90.4 MCH 27.9 27.8 MCHC 31.1 30.8 L RDW 15.4 15.3 Plt Count 148 L 169 MPV 11.5 12.2 Immature Gran % (Auto) 0.3 Neut % (Auto) 65.8 Lymph % (Auto) 21.1 Baker % (Auto) 11.2 H Eos % (Auto) 1.0 Baso % (Auto) 0.6 Lymph # (Auto) 1.4 Baker # (Auto) 0.8 Eos # (Auto) 0.1 Baso # (Auto) 0.0 Abs Immat Gran (auto) 0.02 Absolute Neuts (auto) 4.4 Absolute Nucleated RBC 0.000 0.000 Nucleated RBC % (auto) 0.0 0.0 PT 13.7 H INR 1.2 H APTT 37.3 Sodium Potassium Chloride Carbon Dioxide Anion Gap BUN Creatinine Estim Creat Clear Calc Estimated GFR Random Glucose Calcium B-Natriuretic Peptide 02/09/21 02/09/21 02/09/21 07:46 07:46 16:53 WBC RBC Hgb Hct MCV MCH MCHC RDW Plt Count MPV Immature Gran % (Auto) Neut % (Auto) Lymph % (Auto) Baker % (Auto) Eos % (Auto) Baso % (Auto) Lymph # (Auto) Baker # (Auto) Eos # (Auto) Baso # (Auto) Abs Immat Gran (auto) Absolute Neuts (auto) Absolute Nucleated RBC Nucleated RBC % (auto) PT INR APTT Sodium 143 Potassium 4.6 Chloride 98 Carbon Dioxide 31 H Anion Gap 19 BUN 21 H Creatinine 0.84 Estim Creat Clear Calc 83.4 Estimated GFR > 60 Random Glucose 108 Calcium 9.1 B-Natriuretic Peptide 926 H 971 H Preliminary micro results at discharge 02/06/21 16:35 Blood Culture - Preliminary Blood - Venous No growth after 48 hours. 02/06/21 16:35 Blood Culture - Preliminary Blood - Venous No growth after 48 hours. Discharge Plan Discharge Anticipated Discharge Date/Time: 02/10/21 13:57 Patient Disposition: er Acute [facility] Discharge Diagnosis: Afib CAD CHF Referrals: [facility] [Other] - 1 Week Physician,Unknown J [Primary Care Provider] - 1 Week Discharge Medications: New furosemide 10 mg/mL Solution 40 mg IVPUSH Q12H Qty: 2 RF: 0 atorvastatin 80 mg Tablet 80 mg PO DAILY Qty: 15 RF: 0 amiodarone 200 mg Tablet 400 mg PO BID Qty: 30 RF: 0 spironolactone 25 mg Tablet 12.5 mg PO DAILY Qty: 15 RF: 0 aspirin 81 mg Tablet,Chewable 81 mg PO DAILY Qty: 15 RF: 0 metoprolol tartrate 25 mg Tablet 25 mg PO RQ6H Qty: 15 RF: 0 Discontinued aspirin 81 mg Tablet,Delayed Release (Dr/Ec) 81 mg PO DAILY RF: 0 Discharge Orders: Discharge Order (Routine); Ordered 02/10/21 Ordered By: Kym May Diet: advance to usual diet Activity on Discharge: As tolerated Stand Alone Forms: Patient Portal Discharge page Care Plan Goals: Tx to [facility] for cardiac catheterization Health Concerns: Afib CAD CHF Plan of Treatment: Tx to [facility] for cardiac catheterization Assessment: See discharge summary Attending Attestation: I have personally seen and examined the patient independently (on the date of service as documented by NPP), reviewed the NPP history, exam and?MDM and agree with the assessment and plan as?written Discharge Date/Time: 02/10/21 17:32
[2021-02-09 19:29] LABS: INTERNATIONAL NORM RATIO 1.3 (0.9-1.1); Prothrombin Time 14.8 SEC (9.9-13.0)
[2021-02-09] MEDS: Amiodarone HCL 200 MG TABLET 400 MG PO (20:31)
[2021-02-10] VITALS (12 sets, daily range): BP systolic 82–121; BP diastolic 40–92; PULSE 74–79; RESP 16–20; TEMP 36.1–37; O2SAT 95–100
[2021-02-10] MEDS: Metoprolol Tartrate 25 MG TABLET PO ×3 (01:50→13:16)
[2021-02-10 06:00] LABS: MANUAL DIFF FLAG NO
[2021-02-10 06:04] LABS: Basophils Absolute Auto 0.1 X10*3/uL (0.0-0.2); Basophils Percent Auto 0.8 % (0-2); Eosinophils Absolute Auto 0.1 X10*3/uL (0.0-0.4); Eosinophils Percent Auto 0.9 % (0-4); Hematocrit 40.1 % (42.0-52.0); Hemoglobin 12.4 g/dl (14.0-18.0); Imm Gran Abs Auto 0.02 X10*3/uL (0.00-0.03); Imm Gran Pct Auto 0.3 % (0.0-0.4); Lymphocytes Absolute Auto 1.4 X10*3/uL (1.2-4.9); Lymphocytes Percent Auto 21.6 % (20-40); Mean Corpuscular HGB Conc 30.9 g/dl (31.0-36.0); Mean Corpuscular Hemoglobin 27.9 pg (27.0-33.0); Mean Corpuscular Volume 90.3 fL (80.0-98.0); Mean Platelet Volume 12.6 fL (9.4-12.4); Monocytes Absolute Auto 0.7 X10*3/uL (0.1-1.2); Monocytes Percent Auto 10.5 % (2-11); Neutrophils Absolute Auto 4.2 x10*3/uL (2.0-8.3); Neutrophils Percent Auto 65.9 % (45-73); Platelet Count 151 X10*3/uL (160-400); Red Blood Count 4.44 X10*6/uL (4.60-5.80); Red Cell Distribution Width 14.9 % (11.0-16.0); White Blood Count 6.4 X10*3/uL (4.8-10.8)
[2021-02-10 06:24] LABS: B Type Natriuretic Peptide 908 pg/mL (<100)
[2021-02-10 06:38] LABS: Alanine Aminotransferase 29 U/L (0-40); Albumin Level 3.7 g/dL (3.5-5.0); Alkaline Phosphatase 88 U/L (39-117); Anion Gap 14 (12-20); Aspartate Amino Transferase 19 U/L (5-37); Blood Urea Nitrogen 22 mg/dL (9-16); Calcium 8.7 mg/dL (8.4-10.2); Carbon Dioxide 36 mmol/L (22-29); Chloride 96 mmol/L (96-108); Creatinine Clr Calc Pharmacy 69.4; Estimated Glomerular Filt Rate > 60; Glucose Fasting 102 mg/dL (60-99); Potassium 4.1 mmol/L (3.3-5.1); Sodium 142 mmol/L (135-145); Total Protein 6.5 g/dL (6.5-8.0)
--- NOTE | 2021-02-10 09:22 | MHC.CM.PN ---
Addendum entered by Shaila Dawson 02/10/21 11:25: Per MD rounds [facility] [place] DX NSTEMI. Patient will transport via BLS. Original Note: Male 70 DX CHF, SVT Per RN plan to transfer to [facility] [place] Cardiac [place]. 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 Per Licensed Practical Vocational Nurse She has not been notified of the TX. CM will follow.
[2021-02-10] MEDS: Amiodarone HCL 200 MG TABLET 400 MG PO (10:08)
[2021-02-10] MEDS: Spironolactone 25 MG TABLET 12.5 MG PO (10:09)
[2021-02-10] MEDS: Aspirin 81 MG TAB.CHEW PO (10:09)
[2021-02-10] MEDS: Atorvastatin Calcium 80 MG TABLET PO (10:11)
[2021-02-10] MEDS: Furosemide 40 MG/4 ML VIAL IVPUSH (10:11)
[2021-02-10] MEDS: 0.9 % Sodium Chloride Flush 3 ML SYRINGE IVFLUSH ×2 (10:12→15:19)
--- NOTE | 2021-02-10 10:52 | PM.PNCARD ---
Subjective Subjective Date of Service: 02/10/21 Principal diagnosis: CHF Interval history: States that he feels better. Still gets short of breath with activity but okay while resting. Review of Systems Review of Systems Yes all other systems are reviewed and are negative Cardiovascular: Reports as per HPI, Reports no additional cardiovascular complaints, Denies acrocyanosis, Denies cool extremities, Denies painful fingertips, Denies chest pain, Denies chest pain at rest, Denies diaphoresis, Denies syncope, Denies irregular heart rhythm, Denies claudication, Denies leg edema, Denies lightheadedness, Denies palpitations and Reports dyspnea Respiratory: Reports dyspnea Denies syncope Endocrine: Denies palpitations Physical Exam Vital Signs: Last Vital Signs Temp 97.0 F 02/10/21 07:28 Pulse 76 02/10/21 10:09 Resp 16 02/10/21 09:53 BP 118/73 02/10/21 10:09 Pulse Ox 100 02/10/21 09:53 Body Mass Index 31.0 Const General: cooperative and no acute distress [facility] Other: Unremarkable Neck Neck: Yes normal visual inspection Chest Chest palpation & inspection: normal inspection of the chest Resp Auscultation: clear to auscultation bilaterally, no crackles and no wheezes Cardio Jugular venous distension: no JVD Palpation: normal PMI Heart sounds: S1 normal heart sound present, S2 normal heart sound present, no gallops, no murmurs and no rubs GI Palpation (GI): Soft to palpation Back/Spine/Pelvis Other: unremarkable Skin General skin exam: no rashes or lesions noted Neuro Cranial nerves: Yes Other cranial nerve findings present Extrem General: Yes no clubbing, cyanosis or edema Psych Mental Status: other Objective Labs and Meds Result diagrams: 02/10/21 05:19 02/10/21 05:19 Lab results: Laboratory Results - last 24 hr 02/09/21 02/09/21 02/10/21 16:53 18:40 05:19 WBC 6.4 RBC 4.44 L Hgb 12.4 L Hct 40.1 L MCV 90.3 MCH 27.9 MCHC 30.9 L RDW 14.9 Plt Count 151 L MPV 12.6 H Immature Gran % (Auto) 0.3 Neut % (Auto) 65.9 Lymph % (Auto) 21.6 [place] % (Auto) 10.5 Eos % (Auto) 0.9 Baso % (Auto) 0.8 Lymph # (Auto) 1.4 [place] # (Auto) 0.7 Eos # (Auto) 0.1 Baso # (Auto) 0.1 Abs Immat Gran (auto) 0.02 Absolute Neuts (auto) 4.2 Absolute Nucleated RBC 0.000 Nucleated RBC % (auto) 0.0 PT 14.8 H INR 1.3 H Sodium Potassium Chloride Carbon Dioxide Anion Gap BUN Creatinine Estim Creat Clear Calc Estimated GFR Fasting Glucose Calcium Total Bilirubin AST ALT Alkaline Phosphatase B-Natriuretic Peptide 971 H Total Protein Albumin 02/10/21 02/10/21 05:19 05:19 WBC RBC Hgb Hct MCV MCH MCHC RDW Plt Count MPV Immature Gran % (Auto) Neut % (Auto) Lymph % (Auto) [place] % (Auto) Eos % (Auto) Baso % (Auto) Lymph # (Auto) [place] # (Auto) Eos # (Auto) Baso # (Auto) Abs Immat Gran (auto) Absolute Neuts (auto) Absolute Nucleated RBC Nucleated RBC % (auto) PT INR Sodium 142 Potassium 4.1 Chloride 96 Carbon Dioxide 36 H Anion Gap 14 BUN 22 H Creatinine 1.01 Estim Creat Clear Calc 69.4 Estimated GFR > 60 Fasting Glucose 102 H Calcium 8.7 Total Bilirubin 1.0 AST 19 ALT 29 Alkaline Phosphatase 88 B-Natriuretic Peptide 908 H Total Protein 6.5 Albumin 3.7 Progress Note: A&P Assessment and plan (1) Acute systolic (congestive) heart failure: Status: Acute (2) Atrial fibrillation with rapid ventricular response: Status: Acute (3) Atherosclerotic cardiovascular disease: Status: Acute Assessment and Plan: On telemetry, he remains in sinus rhythm. Echocardiogram with LVEF of 20-25% with wall motion abnormalities. There is moderate mitral regurgitation. Elevated high sensitivity troponins noted. Cardiac BNP also elevated. Overall, new onset congestive heart failure with severe LV dysfunction with history of coronary bypass surgery with atrial fibrillation noted during hospitalization but sinus rhythm now. May continue Amiodarone. Also on Lovenox. Otherwise on beta-blockers, high-dose statins aspirin and IV diuretics. Today's creatinine is 1.01. Otherwise, seems stable and we will transfer him to [facility] for cardiac catheterization tomorrow. Fall Risk Details Current Medications: Current Medications Acetaminophen (Acetaminophen 325 Mg Tablet) 650 mg PO Q6H PRN PRN Reason: Pain, Mild (Pain Scale 1-3) Last Admin: 02/09/21 12:20 Dose: 650 mg Documented by: Amiodarone HCl (Amiodarone Hcl 200 Mg Tablet) 400 mg PO BID [facility] Last Admin: 02/10/21 10:08 Dose: 400 mg Documented by: Aspirin (Aspirin 81 Mg Tab.Chew) 81 mg PO DAILY [facility] Last Admin: 02/10/21 10:09 Dose: 81 mg Documented by: Atorvastatin Calcium (Atorvastatin Calcium 80 Mg Tablet) 80 mg PO DAILY [facility] Last Admin: 02/10/21 10:11 Dose: 80 mg Documented by: Enoxaparin Sodium (Enoxaparin Sodium 100 Mg/Ml Syringe) 90 mg SUBCUT Q12H [facility] Last Admin: 02/09/21 20:30 Dose: 90 mg Documented by: Furosemide (Furosemide 40 Mg/4 Ml Vial) 40 mg IVPUSH Q12H [facility]; Protocol Last Admin: 02/10/21 10:11 Dose: 40 mg Documented by: Melatonin (Melatonin 3 Mg Tablet) 6 mg PO BEDTIME PRN PRN Reason: Insomnia Metoprolol Tartrate (Metoprolol Tartrate 25 Mg Tablet) 25 mg PO RQ6H [facility]; Protocol Last Admin: 02/10/21 06:35 Dose: 25 mg Documented by: Oxycodone HCl (Oxycodone Hcl Immed Release 5 Mg Tablet) 5 mg PO Q6H PRN PRN Reason: Pain, Moderate (Pain Scale 4-6 Pharmacy Consult (Consult Rx Perform Med Rec) 1 each MISCELLANE ONCE PRN PRN Reason: Consult order Sodium Chloride (0.9 % Sodium Chloride Flush 3 Ml Syringe) 3 ml IVFLUSH QSHIFT [facility] Last Admin: 02/10/21 10:12 Dose: 3 ml Documented by: Spironolactone (Spironolactone 25 Mg Tablet) 12.5 mg PO DAILY [facility]; Protocol Last Admin: 02/10/21 10:09 Dose: 12.5 mg Documented by: Time Spent With Patient Time: Total time spent is greater than 50% in coordination of care (as documented) at patient's floor/unit and/or counseling patient: Time with patient: less than 15 minutes Progress Note: Quality Stroke Does the patient have a stroke diagnosis?: No Procedures Date of Service Date of Service: 02/10/21
--- NOTE | 2021-02-10 13:20 | P.PNIM_ITS ---
Subjective Subjective Date of Service: 02/10/21 <Kym May NP - Last Filed: 02/10/21 13:38> 02/10/21 <Zackery Gale MD - Last Filed: 02/10/21 13:44> Review of Systems Follow up ischemia, CAD, CHF Breathing is better, sob with activity sitting up in bed denies chest pain, shortness of breath at rest, nausea, vomiting, diarrhea All other systems are reviewed and are negative <Kym May NP - Last Filed: 02/10/21 13:38> Physical Exam Vital Signs: Vital Signs: Last Vital Signs Temp 98.6 F 02/10/21 11:18 Pulse 76 02/10/21 13:16 Resp 18 02/10/21 11:18 BP 108/73 02/10/21 13:16 Pulse Ox 96 02/10/21 13:15 Body Mass Index 31.0 <Kym May NP - Last Filed: 02/10/21 13:38> Appearing in no acute distress lung sounds are clear to auscultation heart regular rate rhythm, clear S1, S2 positive bowel sounds, abdomen is soft, nontender neuro patient is alert x3, no focal deficits <Kym May NP - Last Filed: 02/10/21 13:38> Objective Data Active Medications Acetaminophen (Acetaminophen 325 Mg Tablet) 650 mg PO Q6H PRN PRN Reason: Pain, Mild (Pain Scale 1-3) Last Admin: 02/09/21 12:20 Dose: 650 mg Documented by: SILVIA Amiodarone HCl (Amiodarone Hcl 200 Mg Tablet) 400 mg PO BID COUNT INCLUDES THE [facility] Last Admin: 02/10/21 10:08 Dose: 400 mg Documented by: VALERY Aspirin (Aspirin 81 Mg Tab.Chew) 81 mg PO DAILY COUNT INCLUDES THE [facility] Last Admin: 02/10/21 10:09 Dose: 81 mg Documented by: VALERY Atorvastatin Calcium (Atorvastatin Calcium 80 Mg Tablet) 80 mg PO DAILY COUNT INCLUDES THE [facility] Last Admin: 02/10/21 10:11 Dose: 80 mg Documented by: VALERY Enoxaparin Sodium (Enoxaparin Sodium 100 Mg/Ml Syringe) 90 mg SUBCUT Q12H COUNT INCLUDES THE [facility] Last Admin: 02/10/21 12:02 Dose: Not Given Documented by: NYASIA Non-Admin Reason: Physician Held Med Furosemide (Furosemide 40 Mg/4 Ml Vial) 40 mg IVPUSH Q12H ARISTIDES; Protocol Last Admin: 02/10/21 10:11 Dose: 40 mg Documented by: VALERY Melatonin (Melatonin 3 Mg Tablet) 6 mg PO BEDTIME PRN PRN Reason: Insomnia Metoprolol Tartrate (Metoprolol Tartrate 25 Mg Tablet) 25 mg PO RQ6H ARISTIDES; Protocol Last Admin: 02/10/21 13:16 Dose: 25 mg Documented by: VALERY Oxycodone HCl (Oxycodone Hcl Immed Release 5 Mg Tablet) 5 mg PO Q6H PRN PRN Reason: Pain, Moderate (Pain Scale 4-6 Pharmacy Consult (Consult Rx Perform Med Rec) 1 each MISCELLANE ONCE PRN PRN Reason: Consult order Sodium Chloride (0.9 % Sodium Chloride Flush 3 Ml Syringe) 3 ml IVFLUSH QSHIFT COUNT INCLUDES THE [facility] Last Admin: 02/10/21 10:12 Dose: 3 ml Documented by: VALERY Spironolactone (Spironolactone 25 Mg Tablet) 12.5 mg PO DAILY COUNT INCLUDES THE [facility]; Protocol Last Admin: 02/10/21 10:09 Dose: 12.5 mg Documented by: VALERY <Kym May NP - Last Filed: 02/10/21 13:38> Labs CBC & Chem 7: : 02/10/21 05:19 02/10/21 05:19 <Kym May NP - Last Filed: 02/10/21 13:38> Labs: Laboratory Results - last 24 hr 02/09/21 02/09/21 02/10/21 16:53 18:40 05:19 MCV 90.3 MCH 27.9 MCHC 30.9 L RDW 14.9 Plt Count 151 L MPV 12.6 H Immature Gran % (Auto) 0.3 Neut % (Auto) 65.9 Lymph % (Auto) 21.6 [place] % (Auto) 10.5 Eos % (Auto) 0.9 Baso % (Auto) 0.8 Lymph # (Auto) 1.4 [place] # (Auto) 0.7 Eos # (Auto) 0.1 Baso # (Auto) 0.1 Abs Immat Gran (auto) 0.02 Absolute Neuts (auto) 4.2 Absolute Nucleated RBC 0.000 Nucleated RBC % (auto) 0.0 PT 14.8 H INR 1.3 H Anion Gap Estim Creat Clear Calc Estimated GFR Fasting Glucose Calcium Total Bilirubin AST ALT Alkaline Phosphatase B-Natriuretic Peptide 971 H Total Protein Albumin 02/10/21 02/10/21 05:19 05:19 MCV MCH MCHC RDW Plt Count MPV Immature Gran % (Auto) Neut % (Auto) Lymph % (Auto) [place] % (Auto) Eos % (Auto) Baso % (Auto) Lymph # (Auto) [place] # (Auto) Eos # (Auto) Baso # (Auto) Abs Immat Gran (auto) Absolute Neuts (auto) Absolute Nucleated RBC Nucleated RBC % (auto) PT INR Anion Gap 14 Estim Creat Clear Calc 69.4 Estimated GFR > 60 Fasting Glucose 102 H Calcium 8.7 Total Bilirubin 1.0 AST 19 ALT 29 Alkaline Phosphatase 88 B-Natriuretic Peptide 908 H Total Protein 6.5 Albumin 3.7 <Kym May NP - Last Filed: 02/10/21 13:38> Assessment and Plan (1) HFrEF (heart failure with reduced ejection fraction): Status: Acute <Kym May NP - Last Filed: 02/10/21 13:38> (2) CAD (coronary artery disease): Status: Acute <Kym May NP - Last Filed: 02/10/21 13:38> (3) Atrial fibrillation: Status: Acute <Kym May NP - Last Filed: 02/10/21 13:38> Assessment and Plan: 70-year-old male with a known history of coronary artery disease status post quadruple bypass 6 years remote presents with approximately 1 week of worsening shortness of breath with exertion.?? ER workup consistent with CHF. Developed? atrial fibrillation which initially responded to adenosine however required amiodarone drip and ultimately did slowed and subsequent conversion to normal sinus rhythm.? Patient resting quietly in no acute distress no complaints HFrEF EF 20-25% with known coronary artery disease, CABG severe LV dysfunction with wma continue IV diuresis cardio following Atrial fibrillation( returned? to NSR after dig) As per Cardiology, will DC amiodarone drip and? switch to p.o.?loading dose at 400 mg b.i.d. Will DC digoxin ? Coronary artery disease Per Cardiology, will need catheterization;? provided remains in NSR Further imaging as per Cardiology Hyperlipidemia Continue statin as ordered Hypertension Continue metoprolol, Diovan, and Aldactone as ordered. Do not hold unless BP less than 90 or patient symptomatic For BP less than 90 persistently may DC Aldactone Plan is for tx to [facility] for cardiac cath tomorrow DVT prophylaxis with Carmen Attending Dr. Gale Full code <Kym May NP - Last Filed: 02/10/21 13:38> Quality Stroke Does the patient have a stroke diagnosis?: No <Kym May NP - Last Filed: 02/10/21 13:38> VTE Prior VTE?: No <Kym May NP - Last Filed: 02/10/21 13:38> VTE Risk Level:: Medical - moderate - high <Kym May NP - Last Filed: 02/10/21 13:38> VTE Device Contraindication: Treatment Not Indicated <Kym May NP - Last Filed: 02/10/21 13:38> VTE Drug Contraindication: N/A - Med Ordered <Kym May NP - Last Filed: 02/10/21 13:38>
--- NOTE | 2021-02-10 13:58 | P.DS_ITS ---
DS: Providers Provider Date of Service: 02/10/21 <Kym May NP - Last Filed: 02/10/21 14:00> Date of admission: 02/06/21 18:18 <Kym May NP - Last Filed: 02/10/21 14:00> Primary care physician: Unknown Physician <Kym May NP - Last Filed: 02/10/21 14:00> Consults: 02/07/21 11:04 Consult to Cardiology Routine Consulting Provider: Patrick Jones Reason for consultation: tachy Has provider been notified: Yes <Kym May NP - Last Filed: 02/10/21 14:00> Attending physician on discharge: Zackery Gale <Kym May NP - Last Filed: 02/10/21 14:00> Discharging clinician: Kym May <Kym May NP - Last Filed: 02/10/21 14:00> DS: Diagnosis Discharge Diagnosis (1) HFrEF (heart failure with reduced ejection fraction): Status: Acute <Kym May NP - Last Filed: 02/10/21 14:00> (2) CAD (coronary artery disease): Status: Acute <Kym May NP - Last Filed: 02/10/21 14:00> (3) Atrial fibrillation: Status: Acute <Kym May NP - Last Filed: 02/10/21 14:00> DS: Summary Hospital Course Hospital Course: 70-year-old male with a known history of coronary artery disease status post quadruple bypass 6 years remote presents with approximately 1 week of worsening shortness of breath with exertion.? He states this began with what he thought was a cold/sinus infection but progressed to the point where he could not walk across the room without having to stop and put his hands on his hips to breathe.? He states at no time did he experience any chest pain related to a shortness of breath.? When queried about his symptoms prior to bypass, patient stated he had a lot of burping .? Workup in the ER included chest x-ray which demonstrated diffuse ground-glass opacities in bilateral lower lobes; D-dimer was mildly elevated prompting a CTA.? CTA failed to demonstrate a central or segmental pulmonary embolism, but did demonstrate cardiomegaly including dilation of the left heart wit small to moderate bilateral pleural effusions as well as diffuse interstitial prominences all in the backdrop BNP over 1999.? Patient was given an inch of nitro paste topically, Lasix 20 , and aspirin. Patient remained hemodynamically stable overnight however on the morning of 02/07/2021 developed a supraventricular tachycardia with rates 150-160 which ultimately broke with adenosine 6 mg and 12 mg respectively. He brought upstairs to telemetry where he remained in normal sinus rhythm until the evening of 02/08/2021 when he went into atrial fibrillation with a rapid ventricular response in the 130s to 150s. As per Cardiology, patient was started on the amiodarone protocol along with metoprolol 25 mg q.6 hours. Over the next 8-10 hours his rate was variable from 90s to 130s with poor control with any movement. Cardiology ordered a digoxin load IV and approximately 2 hours after initial dose patient converted to sinus rhythm. Patient remained in sinus rhythm; cardiology updated and ordered amiodarone drip DC in favor of 400 mg p.o. b.i.d.. Digoxin load was DC'd. Plan is for transfer to [facility] for cardiac catheterization today. <Kym May NP - Last Filed: 02/10/21 14:00> Time Spent with Patient Time attestation: Total time spent providing and/or coordinating discharge services: <Kym May NP - Last Filed: 02/10/21 14:00> Discharge coordination time: Greater than 30 minutes <Kym May NP - Last Filed: 02/10/21 14:00> Quality: Stroke Does the patient have a stroke diagnosis?: No <Kym May NP - Last Filed: 02/10/21 14:00> Physical Exam Vital Signs: Vital Signs: Last Vital Signs Temp 98.6 F 02/10/21 11:18 Pulse 76 02/10/21 13:16 Resp 18 02/10/21 11:18 BP 108/73 02/10/21 13:16 Pulse Ox 96 02/10/21 13:15 Body Mass Index 31.0 <Kym May NP - Last Filed: 02/10/21 14:00> Appearing in no acute distress head is normocephalic atraumatic eyes pupils are PERRLA sclera is anicteric mouth throat mucous membranes are intact and moist neck is supple no lymphadenopathy, no JVD noted lung sounds are clear to auscultation heart regular rate rhythm, clear S1, S2 positive bowel sounds, abdomen is soft, nontender neuro patient is alert x3, no focal deficits <Kym May NP - Last Filed: 02/10/21 14:00> DS: Data Data Completed and Pending Labs on day of discharge: Laboratory Results - last 24 hr 02/09/21 02/09/21 02/10/21 16:53 18:40 05:19 WBC 6.4 RBC 4.44 L Hgb 12.4 L Hct 40.1 L MCV 90.3 MCH 27.9 MCHC 30.9 L RDW 14.9 Plt Count 151 L MPV 12.6 H Immature Gran % (Auto) 0.3 Neut % (Auto) 65.9 Lymph % (Auto) 21.6 [place] % (Auto) 10.5 Eos % (Auto) 0.9 Baso % (Auto) 0.8 Lymph # (Auto) 1.4 [place] # (Auto) 0.7 Eos # (Auto) 0.1 Baso # (Auto) 0.1 Abs Immat Gran (auto) 0.02 Absolute Neuts (auto) 4.2 Absolute Nucleated RBC 0.000 Nucleated RBC % (auto) 0.0 PT 14.8 H INR 1.3 H Sodium Potassium Chloride Carbon Dioxide Anion Gap BUN Creatinine Estim Creat Clear Calc Estimated GFR Fasting Glucose Calcium Total Bilirubin AST ALT Alkaline Phosphatase B-Natriuretic Peptide 971 H Total Protein Albumin 02/10/21 02/10/21 05:19 05:19 WBC RBC Hgb Hct MCV MCH MCHC RDW Plt Count MPV Immature Gran % (Auto) Neut % (Auto) Lymph % (Auto) [place] % (Auto) Eos % (Auto) Baso % (Auto) Lymph # (Auto) [place] # (Auto) Eos # (Auto) Baso # (Auto) Abs Immat Gran (auto) Absolute Neuts (auto) Absolute Nucleated RBC Nucleated RBC % (auto) PT INR Sodium 142 Potassium 4.1 Chloride 96 Carbon Dioxide 36 H Anion Gap 14 BUN 22 H Creatinine 1.01 Estim Creat Clear Calc 69.4 Estimated GFR > 60 Fasting Glucose 102 H Calcium 8.7 Total Bilirubin 1.0 AST 19 ALT 29 Alkaline Phosphatase 88 B-Natriuretic Peptide 908 H Total Protein 6.5 Albumin 3.7 Preliminary micro results at discharge 02/06/21 16:35 Blood Culture - Preliminary Blood - Venous No growth after 48 hours. 02/06/21 16:35 Blood Culture - Preliminary Blood - Venous No growth after 48 hours. <Kym May NP - Last Filed: 02/10/21 14:00> Discharge Plan Discharge Anticipated Discharge Date/Time: 02/10/21 13:57 <Kym May NP - Last Filed: 02/10/21 14:00> Patient Disposition: [facility] <Kym May NP - Last Filed: 02/10/21 14:00> Discharge Diagnosis: Afib CAD CHF <Kym May NP - Last Filed: 02/10/21 14:00> Afib CAD CHF <Zackery Gale MD - Last Filed: 02/11/21 20:08> Referrals: [facility] [Other] - 1 Week Physician,Unknown J [Primary Care Provider] - 1 Week <Kym May NP - Last Filed: 02/10/21 14:00> Discharge Medications: New furosemide 10 mg/mL Solution 40 mg IVPUSH Q12H Qty: 2 RF: 0 atorvastatin 80 mg Tablet 80 mg PO DAILY Qty: 15 RF: 0 amiodarone 200 mg Tablet 400 mg PO BID Qty: 30 RF: 0 spironolactone 25 mg Tablet 12.5 mg PO DAILY Qty: 15 RF: 0 aspirin 81 mg Tablet,Chewable 81 mg PO DAILY Qty: 15 RF: 0 metoprolol tartrate 25 mg Tablet 25 mg PO RQ6H Qty: 15 RF: 0 Discontinued aspirin 81 mg Tablet,Delayed Release (Dr/Ec) 81 mg PO DAILY RF: 0 <Kym May NP - Last Filed: 02/10/21 14:00> Discharge Orders: Discharge Order (Routine); Ordered 02/10/21 Ordered By: Kym May <Kym May NP - Last Filed: 02/10/21 14:00> Diet: advance to usual diet <Kym May NP - Last Filed: 02/10/21 14:00> advance to usual diet <Zackery Gale MD - Last Filed: 02/11/21 20:08> Activity on Discharge: As tolerated <Kym May NP - Last Filed: 02/10/21 14:00> As tolerated <Zackery Gale MD - Last Filed: 02/11/21 20:08> Stand Alone Forms: Patient Portal Discharge page <Kym May NP - Last Filed: 02/10/21 14:00> Care Plan Goals: Tx to [facility] for cardiac catheterization <Kym May NP - Last Filed: 02/10/21 14:00> Health Concerns: Afib CAD CHF <Kym May NP - Last Filed: 02/10/21 14:00> Plan of Treatment: Tx to [facility] for cardiac catheterization <Kym May NP - Last Filed: 02/10/21 14:00> Assessment: See discharge summary Attending Attestation: I have personally seen and examined the patient independently (on the date of service as documented by NPP), reviewed the NPP history, exam and?MDM and agree with the assessment and plan as?written <Kym May NP - Last Filed: 02/10/21 14:00> Discharge Date/Time: 02/10/21 17:32 <Kym May NP - Last Filed: 02/10/21 14:00>
== END 2021-02-10 17:32 | disposition short-term general hospital (02) | DRG 291 ==
LOC: HO.ED 16:58 → HO.EDOVER 18:35 → HO.IMC 02-07 14:34
PROVIDERS: Emergency Medicine; Admitting Provider Hospitalist; Emergency Provider Student in an Organized Health Care Education/Training Program; Visit Provider Nurse Practitioner Acute Care
DX: I11.0 Hypertensive heart disease with heart failure (principal); I50.21 Acute systolic (congestive) heart failure; I47.1 Supraventricular tachycardia; I25.10 Atherosclerotic heart disease of native coronary artery without angina pectoris; Z95.1 Presence of aortocoronary bypass graft; E78.5 Hyperlipidemia, unspecified; I48.91 Unspecified atrial fibrillation; Z20.822 Contact with and (suspected) exposure to COVID-19; Z79.82 Long term (current) use of aspirin; Z79.899 Other long term (current) drug therapy
CPT/HCPCS: 0241U; 36415; 71045; 71275; 80048; 80053; 80061; 82947; 83036; 83605; 83880; 84484; 85025; 85027; 85379; 85610; 85730; 87040; 93005; 93306; 99285; J0153; J0282; J1160; J1650; J1940; Q9957; Q9967

== ENCOUNTER 2021-02-27 13:15 | Outpatient (REF) | payer OTHER, SELFPAY ==
[2021-02-27 15:08] LABS: Anion Gap 13 (12-20); Blood Urea Nitrogen 26 mg/dL (9-16); Calcium 9.1 mg/dL (8.4-10.2); Carbon Dioxide 32 mmol/L (22-29); Chloride 100 mmol/L (96-108); Estimated Glomerular Filt Rate 56; Glucose Random 104 mg/dL (60-115); Potassium 4.6 mmol/L (3.3-5.1); Sodium 140 mmol/L (135-145)
[2021-02-27 15:20] LABS: B Type Natriuretic Peptide 492 pg/mL (<100)
== END 2021-02-27 13:16 | disposition home or self-care (01) ==
LOC: HO.LAB 13:15
PROVIDERS: Visit Provider Internal Medicine Cardiovascular Disease
DX: I50.20 Unspecified systolic (congestive) heart failure (principal); I25.10 Atherosclerotic heart disease of native coronary artery without angina pectoris; I48.0 Paroxysmal atrial fibrillation
CPT/HCPCS: 36415; 80048; 83880; 93005

== ENCOUNTER → 2021-03-26 13:37 | Outpatient (BNVA) | payer OTHER, SELFPAY | PROVIDERS: PCP Internal Medicine; Referring Provider Internal Medicine; Visit Provider Internal Medicine Cardiovascular Disease | DX: I95.9 Hypotension, unspecified (principal); I50.20 Unspecified systolic (congestive) heart failure; I48.0 Paroxysmal atrial fibrillation; I25.10 Atherosclerotic heart disease of native coronary artery without angina pectoris | CPT/HCPCS: 93005 ==

== ENCOUNTER → 2021-04-09 09:10 | Outpatient (BNVA) | payer OTHER, SELFPAY | PROVIDERS: PCP Internal Medicine; Referring Provider Internal Medicine; Visit Provider Internal Medicine Cardiovascular Disease ==

== ENCOUNTER → 2021-06-06 09:16 | Outpatient (BNVA) | payer OTHER, SELFPAY | PROVIDERS: PCP Internal Medicine; Referring Provider Internal Medicine; Visit Provider Internal Medicine Cardiovascular Disease | DX: Z13.89 Encounter for screening for other disorder (principal) ==

== ENCOUNTER → 2021-06-16 07:18 | Outpatient (REF) | payer OTHER, SELFPAY ==
--- NOTE | 2021-06-16 07:22 | CA_ITS ---
Transthoracic Echocardiogram Patient (Last, First, Middle): Brice Mike J Gender: Male Date of : 1950 Age: 70 Procedure Date: 06/16/2021 Procedure Type: Transthoracic Echocardiogram Location: OP Height: 167.64 cm Weight: 89.36 kg BSA: 1.99 m2 Heart Rate: bpm BP: 110 / 70 mmHg Ribber: CODI Referring MD: Patrick Jones MD Management Trainee: Patrick Jones MD Symptoms: I50.20 - Unspecified systolic (congestive) heart failure Study Quality: Fair/contrast ECG Rhythm: Sinus Conclusions: - Mildly dilated LV with moderate LV systolic dysfunction with impaired relaxation abnormality Findings Procedure Information Contrast agent, definity, is being given per protocol without apparent complications. Left Ventricle Mildly increased left ventricular cavity size. There is normal left ventricular wall thickness. The left ventricular systolic function is moderately decreased. The visually estimated ejection fraction is between 35 40%. Spectral Doppler is indicative of an impaired relaxation filling pattern. Pericardium/Pleural There is no evidence of pericardial effusion. Prior Study Comparison Changes noted compared to prior study dated: 02/07/2021. LV systolic function has improved Measurements 2D Linear Measurements IVSd: 0.97 0.6-0.9/0.6-1.0 cm LVIDd: 5.91 3.9-5.3/4.2-5.9 cm LVIDd Index: 2.97 2.4-3.2/2.2-3.1 cm/m2 LVIDs: 5.30 2.0-3.6 cm LVPWd: 1.03 0.7-1.1 cm LA Diam: 4.20 2.7-3.8/3.0-4.0 cm LAIDs Index: 2.11 1.5-2.3 cm/m2 LV Mass: 299.83 67-162/88-224 g LV Mass Index: 150.67 43-95/49-115 g/m2 2D Systolic Function EF 4C: 37.10 >55% EF 2C: 44.10 >55% Mitral Valve MV Pk E: 0.76 MV PK A: 1.14 MV Decel Time: 220.00 E/A: 0.70 E'Lateral: 4.68 E'Medial: 3.37 E/E' Med: 22.50 E/E' Lat: 16.20 PHT: 64.00 MVA PHT: 3.44 Decel [place]: 3.45 Diastolic Function MV Pk E: 0.76 MV Pk A: 1.14 E/A: 0.70 E'Medial: 3.37 E/E' Med: 22.50 E' Laterial: 4.68 E/E' Lat: 16.20 Updated in Other Vendor System with Status of Final Patrick Jones MD electronically signed on 06/16/2021 4:16:51 PM with status of Final
--- NOTE | 2021-06-16 07:22 | HM_ITS ---
Conclusion: 1. Patient was monitored for total period of 3 days 2. Baseline was normal sinus rhythm with average heart rate of 67 beats per minute 3. Total of 772 PVCs accounting for 0.26% total burden account for occasional PVCs 4. No significant pauses or bradycardia noted 5. No patient reported events MTDD
== END ==
LOC: HO.CARD 07:18
PROVIDERS: Visit Provider Internal Medicine Cardiovascular Disease
DX: R00.0 Tachycardia, unspecified (principal); I48.0 Paroxysmal atrial fibrillation; I50.20 Unspecified systolic (congestive) heart failure
CPT/HCPCS: 93242; 93308; Q9957

== ENCOUNTER → 2021-07-07 10:51 | Outpatient (BNVA) | payer OTHER, SELFPAY | PROVIDERS: PCP Internal Medicine; Referring Provider Internal Medicine; Visit Provider Internal Medicine Cardiovascular Disease | DX: Z13.89 Encounter for screening for other disorder (principal) ==

== ENCOUNTER → 2022-03-25 15:03 | Outpatient (BNVA) | payer OTHER, SELFPAY | PROVIDERS: PCP Internal Medicine; Referring Provider Internal Medicine; Visit Provider Nurse Practitioner Family | DX: I48.0 Paroxysmal atrial fibrillation (principal) ==

== ENCOUNTER → 2022-06-08 07:32 | Outpatient (REF) | payer OTHER, SELFPAY ==
--- NOTE | 2022-06-08 07:35 | CA_ITS ---
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 - The left ventricular systolic function is normal. The calculated ejection fraction is 38% by biplane method. - Basal inferior wall, basal to mid inferolateral wall appear akinetic. Other areas, difficult to assess. - There is mild calcification of the aortic valve. - There is mild mitral annular calcification. Findings Procedure Information Contrast agent, definity, is being given per protocol without apparent complications. Left Ventricle Moderately increased left ventricular cavity size. The left ventricular systolic function is normal. The calculated ejection fraction is 38% by biplane method. E/E prime ratio is between 8 and 15 consistent with indeterminate filling pressures. Evidence suggests grade I (mild) diastolic dysfunction. Wall motion assessment difficult in spite of using contrast. Basal inferior wall, basal to mid inferolateral wall appear akinetic. Other areas, difficult to assess. Right Ventricle Mildly increased right ventricular cavity size. There is normal right ventricular systolic function. Atria The left atrium is mildly dilated. The right atrium is normal in size. Aortic Valve There is a normal trileaflet aortic valve. There is mild calcification of the aortic valve. There is no aortic valve stenosis. Trace to mild aortic regurgitation. Mitral Valve There is mild mitral annular calcification. There is mild mitral valve regurgitation. There is no mitral valve stenosis. Pulmonic Valve The pulmonic valve is likely normal. Tricuspid Valve There is trace tricuspid valve regurgitation. Tricuspid regurgitation envelope is inadequate for calculation of right ventricular systolic pressure. Great Vessels The asc aorta is normal in size. Venous The inferior vena cava is normal in size and collapses greater than 50% with inspiration. Pericardium/Pleural There is no evidence of pericardial effusion. Prior Study Comparison Changes noted compared to prior study dated: 06/16/2021. LV more dilated. Measurements 2D Linear Measurements IVSd: 1.11 0.6-0.9/0.6-1.0 cm LVIDd: 6.32 3.9-5.3/4.2-5.9 cm LVIDd Index: 3.26 2.4-3.2/2.2-3.1 cm/m2 LVIDs: 5.73 2.0-3.6 cm LVPWd: 0.98 0.7-1.1 cm LA Diam: 4.20 2.7-3.8/3.0-4.0 cm LAIDs Index: 2.16 1.5-2.3 cm/m2 LV Mass: 355.20 67-162/88-224 g LV Mass Index: 183.09 43-95/49-115 g/m2 LVOT Diam: 2.20 3.0+(-)1.3 cm 2D Systolic Function EF 4C: 29.60 >55% EF 2C: 42.80 >55% EF BiP: 37.90 >55% Mitral Valve MV Pk E: 0.56 MV PK A: 1.09 MV Decel Time: 323.00 E/A: 0.50 E'Lateral: 5.11 E'Medial: 3.59 E/E' Med: 15.60 E/E' Lat: 11.00 PHT: 95.00 MVA PHT: 2.32 Decel [place]: 1.74 Aortic Valve AoV Pk [place]: 1.60 AoV Mn Migel: 1.17 AoV VTI: 0.31 AoV Pk Grad: 10.00 Aov Mn Grad: 6.00 AVANI Cont.VTI: 2.07 LVOT LVOT Pk [place]: 0.91 LVOT Mn Migel: 0.57 LVOT VTI: 0.17 LVOT Pk Grad: 3.00 LVOT Mn Grad: 2.00 LVOT Diam: 2.20 LVOT Area: 3.80 Diastolic Function MV Pk E: 0.56 MV Pk A: 1.09 E/A: 0.50 E'Medial: 3.59 E/E' Med: 15.60 E' Laterial: 5.11 E/E' Lat: 11.00 Right Ventricle TAPSE (mm): 18.50 TVS' Migel: 9.57 Tricuspid Valve RA Press: 3.00 Great Vessels Aorta Sinus of Valsalva: 3.61 2.0-3.[address] [place]: 2.84 1.7-3.4 cm Ao Asc: 3.30 2.1-3.4 cm Updated in Other Vendor System with Status of Final Oswald Stuart MD electronically signed on 06/08/2022 12:26:39 PM with status of Final
[2022-06-08 07:42] LABS: MANUAL DIFF FLAG NO
[2022-06-08 08:00] LABS: Basophils Absolute Auto 0.1 X10*3/uL (0.0-0.2); Basophils Percent Auto 0.6 % (0-2); Eosinophils Absolute Auto 0.2 X10*3/uL (0.0-0.4); Eosinophils Percent Auto 2.4 % (0-4); Hematocrit 43.3 % (42.0-52.0); Hemoglobin 14.1 g/dl (14.0-18.0); Imm Gran Abs Auto 0.03 X10*3/uL (0.00-0.03); Imm Gran Pct Auto 0.4 % (0.0-0.4); Lymphocytes Absolute Auto 2.5 X10*3/uL (1.2-4.9); Mean Corpuscular HGB Conc 32.6 g/dl (31.0-36.0); Mean Corpuscular Hemoglobin 28.7 pg (27.0-33.0); Mean Platelet Volume 11.4 fL (9.4-12.4); Monocytes Absolute Auto 0.7 X10*3/uL (0.1-1.2); Monocytes Percent Auto 8.9 % (2-11); Neutrophils Absolute Auto 4.8 x10*3/uL (2.0-8.3); Neutrophils Percent Auto 57.7 % (45-73); Platelet Count 193 X10*3/uL (160-400); Red Blood Count 4.92 X10*6/uL (4.60-5.80); Red Cell Distribution Width 14.6 % (11.0-16.0); White Blood Count 8.4 X10*3/uL (4.8-10.8)
[2022-06-08 08:29] LABS: Anion Gap 13 (12-20); Blood Urea Nitrogen 13 mg/dL (9-16); Calcium 9.1 mg/dL (8.4-10.2); Carbon Dioxide 34 mmol/L (22-29); Chloride 99 mmol/L (96-108); Estimated Glomerular Filt Rate > 60; Glucose Random 115 mg/dL (60-115); Potassium 3.2 mmol/L (3.3-5.1); Sodium 143 mmol/L (135-145)
[2022-06-08 08:30] LABS: B Type Natriuretic Peptide 205 pg/mL (<100)
== END ==
LOC: HO.CARD 07:32
PROVIDERS: Nurse Practitioner Family; Visit Provider Internal Medicine Cardiovascular Disease
DX: I42.9 Cardiomyopathy, unspecified (principal); I48.0 Paroxysmal atrial fibrillation; I50.20 Unspecified systolic (congestive) heart failure
CPT/HCPCS: 36415; 80048; 83880; 85025; 93306; Q9957

== ENCOUNTER → 2022-07-06 08:07 | Outpatient (BNVA) | payer OTHER, MEDICARE, SELFPAY | PROVIDERS: PCP Internal Medicine; Visit Provider Internal Medicine Cardiovascular Disease | DX: Z13.89 Encounter for screening for other disorder (principal) ==

== ENCOUNTER 2023-01-04 08:56 | Outpatient (REF) | payer OTHER, MEDICARE, SELFPAY ==
[2023-01-04 10:10] LABS: Anion Gap 13 (12-20); Blood Urea Nitrogen 18 mg/dL (9-16); Calcium 9.7 mg/dL (8.4-10.2); Carbon Dioxide 32 mmol/L (22-29); Chloride 103 mmol/L (96-108); Estimated Glomerular Filt Rate > 60; Glucose Random 102 mg/dL (60-115); Magnesium 1.9 mg/dL (1.6-2.6); Potassium 3.7 mmol/L (3.3-5.1); Sodium 144 mmol/L (135-145)
== END 2023-01-04 08:57 | disposition home or self-care (01) ==
LOC: HO.LAB 08:56
PROVIDERS: Visit Provider Internal Medicine Cardiovascular Disease
DX: I50.30 Unspecified diastolic (congestive) heart failure (principal); I50.20 Unspecified systolic (congestive) heart failure
CPT/HCPCS: 36415; 80048; 83735

== ENCOUNTER 2023-01-06 12:37 | Outpatient (AMB) | payer OTHER, SELFPAY ==
[2023-01-06 13:02] VITALS: BP 104/58; PULSE 75
--- NOTE | 2023-01-06 13:02 | A.OFFVIS_ITS ---
Intake Vital Signs 01/06/23 13:02 Weight 172 lb 13.478 oz BP 104/58 L Blood Pressure Location Lt brachial Position Sitting Pulse 75 Pulse Source Pulse Oximeter Intake Visit Reasons: 6 MON FUP AFTER LABS Allergies Valsartan Adverse Reaction (Uncoded 01/06/23 13:03) Fatigue, back pain, hypotension Medication List - Last Reconciled 01/06/23 by Vannesa Newman NP apixaban (Eliquis) 5 mg PO BID atorvastatin 80 mg PO DAILY furosemide 40 mg PO BID 90 days metoprolol succinate ER 100 mg PO BID 90 days HPI HPI Comments History of Present Illness Details 72-year-old male presents today for a si x month follow-up with his . He reports he has been doing great since his last visit. He denies any symptoms and reports tolerating activities such as mowing the lawn. He has been eating better and exercising. He has lost about 20 lbs over the summer. Reporting his blood pressures at home are 110/60. He does report he stopped the potassium due to brain fog. ON LICENSE OF [facility] Medical History SVT (supraventricular tachycardia) Cardiomyopathy Low blood pressure Paroxysmal atrial fibrillation HFrEF (heart failure with reduced ejection fraction) Atherosclerotic cardiovascular disease Atrial fibrillation Murmur, cardiac CHF (congestive heart failure) CAD (coronary artery disease) [place] Surgical History S/P ablation of accessory bypass tract S/P quadruple vessel bypass Social History Household Members: Spouse Housing: House Do you presently have visiting nurse or other home services: No Alcohol intake: never Patient Tobacco Use Status: Former Tobacco user service: No Current occupational status: retired Review of Systems Const Denies chills, Denies fatigue, Denies fever(s), Denies frequent falls, Denies weakness, Denies weight gain and Denies weight loss ENT Denies dizziness Card Denies chest pain, Denies chest pain with activity, Denies syncope, Denies rapid heart rate, Denies pedal edema, Denies irregular heart rhythm, Denies leg edema, Denies lightheadedness, Denies palpitations, Denies dyspnea, Denies dyspnea on exertion, Denies orthopnea and Denies other (LOC) Resp Denies cough, Denies dyspnea and Denies dyspnea on exertion GI Denies hematochezia and Denies change in bowel habits Musc Denies abnormal gait, Denies arthralgias, Denies muscle weakness, Denies numbness, Denies radiating pain into limb and Denies tingling Neuro Denies abnormal gait, Denies dizziness, Denies syncope, Denies frequent falls, Denies numbness, Denies tingling and Denies weakness Endo Denies fatigue and Denies palpitations Physical Exam Vital Signs: Last Vital Signs Pulse 75 01/06/23 13:02 BP 104/58 L 01/06/23 13:02 Const General: healthy appearing and no acute distress Orientation/consciousness: patient oriented x3 HEENT Head: Yes normal to inspection Eyes General: appearance normal, both eyes and all related structures Neck Neck: Yes normal visual inspection Chest Chest palpation & inspection: normal inspection of the chest Resp Effort & Inspection: normal respiratory effort Auscultation: clear to auscultation bilaterally Cardio Jugular venous distension: no JVD Palpation: normal PMI Rate: regular rate Rhythm: regular rhythm Heart sounds: S1 normal heart sound present, S2 normal heart sound present, no click, no gallops, no murmurs and no rubs GI Inspection: Yes normal to inspection Palpation (GI): Soft to palpation Skin General skin exam: no rashes or lesions noted Neuro General: patient oriented x3 Extrem General: Yes normal to inspection Psych Appearance: grossly normal Results Reviewed Results Reviewed: Laboratory Tests 01/04/23 09:16 Sodium 144 Potassium 3.7 Chloride 103 Carbon Dioxide 32 H Anion Gap 13 BUN 18 H Creatinine 0.86 Estim Creat Clear Calc Not Reportable Estimated GFR > 60 Random Glucose 102 Calcium 9.7 D Magnesium 1.9 Assessment & Plan Assessment & Plan (1) CAD (coronary artery disease): Code(s): I25.10 - Atherosclerotic heart disease of [place] coronary artery without angina pectoris (2) Paroxysmal atrial fibrillation: Code(s): I48.0 - Paroxysmal atrial fibrillation (3) HFrEF (heart failure with reduced ejection fraction): Code(s): I50.20 - Unspecified systolic (congestive) heart failure Plan Continue medications as presently prescribed. Potassium on 01/04/23 was within normal limits. Discussed how lasix decreases potassium and he needs to be sure to keep his potassium intake higher. Continue with heart healthy low salt diet. Report any new symptoms. Will have him return in 6 months - sooner if needed Coding Level of Care Code Est Pt Level 3 (19976) Diagnoses CAD (coronary artery disease) I25.10 Paroxysmal atrial fibrillation I48.0 HFrEF (heart failure with reduced ejection fraction) I50.20
== END 2023-01-06 13:24 | disposition home or self-care (01) ==
PROVIDERS: Visit Provider Nurse Practitioner
DX: I25.10 Atherosclerotic heart disease of native coronary artery without angina pectoris (principal); I48.0 Paroxysmal atrial fibrillation; I50.20 Unspecified systolic (congestive) heart failure
CPT/HCPCS: 99213

== ENCOUNTER → 2023-01-06 12:37 | Outpatient (BNVA) | payer OTHER, MEDICARE, SELFPAY | PROVIDERS: Visit Provider Nurse Practitioner ==

== ENCOUNTER 2023-07-19 14:28 | Outpatient (AMB) | payer OTHER, SELFPAY ==
--- NOTE | 2023-07-19 14:40 | A.OFFVIS_ITS ---
Vital Signs 07/19/23 14:41 Height 5 ft 6 in Weight 167 lb 8.821 oz BMI 27.0 BP 126/70 Blood Pressure Location Lt brachial Position Sitting Pulse 72 Intake Visit Reasons: 6 month follow-up Intake Note: 6 month follow-up feeling good Tax Technician Required: No Account Receivable Associate: Account Receivable Associate Present Accompanied by: Spouse Allergies Valsartan Adverse Reaction (Uncoded 01/06/23 13:03) Fatigue, back pain, hypotension Medication List - Last Reconciled 07/19/23 by Patrick Jones MD apixaban (Eliquis) 5 mg PO BID atorvastatin 80 mg PO DAILY furosemide 40 mg PO BID 90 days metoprolol succinate ER 100 mg PO BID HPI Comments Details: Brice comes for follow-up after a long gap. He has currently not on valsartan therapy due to low blood pressure lightheadedness. Overall otherwise he is doing well. He said he remains in good functional status and mowed his lawn yesterday without any symptoms. Denies any exertional chest pain, shortness of breath. No lightheadedness, syncope. Takes all his medications regularly except for as mentioned no renin angiotensin antagonist which she could not tolerate. Denies any prolonged palpitation irregular heartbeat. Denies any bleeding issues or neurologic events. [facility], LAT[facility] Medical History SVT (supraventricular tachycardia) Cardiomyopathy Low blood pressure Paroxysmal atrial fibrillation HFrEF (heart failure with reduced ejection fraction) Atherosclerotic cardiovascular disease Atrial fibrillation Murmur, cardiac CHF (congestive heart failure) CAD (coronary artery disease) [place] Surgical History S/P ablation of accessory bypass tract S/P quadruple vessel bypass Social History Household Members: Spouse Housing: House Do you presently have visiting nurse or other home services: No Alcohol intake: never Patient Tobacco Use Status: Former Tobacco user service: No Current occupational status: retired Review of Systems Const Denies chills, Denies fatigue, Denies fever(s), Denies frequent falls, Denies weakness, Denies weight gain and Denies weight loss ENT Denies dizziness Card Denies chest pain, Denies leg edema, Denies lightheadedness, Denies palpitations, Denies dyspnea, Denies dyspnea on exertion, Denies orthopnea and Denies other (loss of consciousness) Resp Denies cough, Denies dyspnea and Denies dyspnea on exertion GI Denies hematochezia and Denies change in stool character Musc Denies abnormal gait, Denies muscle weakness, Denies numbness, Denies radiating pain into limb and Denies tingling Neuro Denies abnormal gait, Denies dizziness, Denies frequent falls, Denies numbness, Denies tingling and Denies weakness Endo Denies fatigue and Denies palpitations Physical Exam Vital Signs: Last Vital Signs Pulse 72 07/19/23 14:41 BP 126/70 07/19/23 14:41 BMI result Body Mass Index 27.0 Const General: cooperative, comfortable, no acute distress, well developed, alert and awake Nutritional Appearance: overweight Orientation/consciousness: patient oriented x3 Limitations: no limitations Neck Neck: Yes trachea midline, Yes supple and Yes no JVD Resp Effort & Inspection: normal respiratory effort Auscultation: clear to auscultation bilaterally Cardio Jugular venous distension: no JVD Palpation: abnormal PMI displaced PMI Rate: regular rate Rhythm: regular rhythm Heart sounds: S1 normal heart sound present, S2 normal heart sound present, no click, no gallops, no murmurs and no rubs Skin General skin exam: no rashes or lesions noted Neuro General: patient oriented x3 and no focal motor deficits Extrem General: Yes no clubbing, cyanosis or edema Psych Appearance: grossly normal Office Procedures EKG Details: EKG shows normal sinus rhythm with Q-waves in inferior leads otherwise is ST T wave changes suggestive of repolarization abnormality [id number], Complete Assessment & Plan Assessment & Plan (1) HFrEF (heart failure with reduced ejection fraction): Code(s): I50.20 - Unspecified systolic (congestive) heart failure Category: Medical Plan: Heart failure with reduced ejection fraction secondary to ischemic cardiomyopathy with moderate LV systolic dysfunction. Clinically euvolemic and well compensated. Continue current diuretic regimen. Could not tolerate additional neurohormonal modulation with low blood pressure lightheadedness. Continue metoprolol therapy for now. Importance of medical therapy was discussed he understands agrees. Daily weight monitoring avoidance of salt loading was discussed. Understands agrees. Will obtain echocardiogram in near future. Manage CAD aggressively. (2) Paroxysmal atrial fibrillation: Code(s): I48.0 - Paroxysmal atrial fibrillation Category: Medical Plan: Paroxysmal atrial fibrillation without any obvious clinical recurrence. C ontinue metoprolol therapy. No indication for antiarrhythmic drug therapy at this point time. Continue full oral anticoagulation, currently on Eliquis 5 mg b.i.d.. Semi annual renal function test is recommended. Advised to call me with any new symptoms. (3) CAD (coronary artery disease): Code(s): I25.10 - Atherosclerotic heart disease of [place] coronary artery without angina pectoris Category: Medical Plan: CAD with remote coronary artery bypass grafting. Currently doing well. No symptoms of angina. Continue high-intensity statin therapy. Target goal LDL closer to 60 mg/dL. Currently on full oral anticoagulation Eliquis and therefo re would avoid antiplatelet therapy. Blood pressure is currently well optimized advised to monitor blood pressure at home maintain a log. Goal blood pressure less than 130/84. Will follow up in the clinic in 6 months time, sooner p.r.n.. Thank you for allowing me to partake in his care Orders: Orders CA echo transthoracic complete Today I50.20 - Unspecified systolic (congestive) heart failure Coding Level of Care Code Est Pt Level 4 (32513) Diagnoses HFrEF (heart failure with reduced ejection fraction) I50.20 Paroxysmal atrial fibrillation I48.0 CAD (coronary artery disease) I25.10 CPT Codes EKG - CPT: 34434-[id number], Complete ([id number])
[2023-07-19 14:41] VITALS: BP 126/70; PULSE 72; BMI 27.0
== END 2023-07-19 15:08 | disposition home or self-care (01) ==
PROVIDERS: PCP Internal Medicine; Visit Provider Internal Medicine Cardiovascular Disease
DX: I50.20 Unspecified systolic (congestive) heart failure (principal); I48.0 Paroxysmal atrial fibrillation; I25.10 Atherosclerotic heart disease of native coronary artery without angina pectoris
CPT/HCPCS: 93010; 99214

== ENCOUNTER → 2023-07-19 14:28 | Outpatient (BNVA) | payer OTHER, SELFPAY | PROVIDERS: PCP Internal Medicine; Visit Provider Internal Medicine Cardiovascular Disease | DX: I50.20 Unspecified systolic (congestive) heart failure (principal); I48.0 Paroxysmal atrial fibrillation; I25.10 Atherosclerotic heart disease of native coronary artery without angina pectoris; Z79.01 Long term (current) use of anticoagulants | CPT/HCPCS: 93005 ==

== ENCOUNTER → 2023-08-27 07:29 | Outpatient (REF) | payer OTHER, SELFPAY ==
--- NOTE | 2023-08-27 07:59 | CA_ITS ---
Transthoracic Echocardiogram Patient (Last, First, Middle): Brice Mike J Gender: Male Date of : 1950 Age: 72 Procedure Date: 08/27/2023 Procedure Type: Transthoracic Echocardiogram Location: OP Height: 167.64 cm Weight: 73.03 kg BSA: 1.82 m2 Heart Rate: 58 bpm BP: 120 / 75 mmHg Cream Beater: SAEID Referring MD: Patrick Jones MD Symptoms: I50.20 - Unspecified systolic (congestive) heart failure Study Quality: Technically Difficult/Contrast Conclusions: - The left ventricular systolic function is moderate to severely decreased. The visually estimated ejection fraction is between 30-35%. - The inferolateral wall and basal inferior segment are akinetic. - The left atrium is moderately dilated. - No obvious valvular pathology seen on this study. Findings Procedure Information Contrast agent, definity, is being given per protocol without apparent complications. Left Ventricle Moderately increased left ventricular cavity size. There is normal left ventricular wall thickness. The left ventricular systolic function is moderate to severely decreased. The visually estimated ejection fraction is between 30-35%. There is evidence of regional wall motion abnormalities. There is severe global hypokinesis. Evidence suggests grade I (mild) diastolic dysfunction. Wall Motion Rest Echo Findings The inferolateral wall and basal inferior segment are akinetic. Right Ventricle Normal right ventricular cavity size. There is mildly decreased right ventricular systolic function. Atria The left atrium is moderately dilated. The right atrium is normal in size. Aortic Valve There is mild calcification of the aortic valve. There is no aortic valve stenosis. There is no aortic valve regurgitation. Mitral Valve There is mild mitral annular calcification. There is trace mitral valve regurgitation. There is no mitral valve stenosis. Pulmonic Valve The pulmonic valve is likely normal. Tricuspid Valve There is no tricuspid valve regurgitation. Tricuspid regurgitation envelope is inadequate for calculation of right ventricular systolic pressure. Great Vessels The asc aorta is normal in size. Venous The inferior vena cava is normal in size and collapses greater than 50% with inspiration. Pericardium/Pleural There is no evidence of pericardial effusion. Prior Study Comparison No significant change compared to prior study dated: 06/08/2022. Recommendations, Care & Conclusions No obvious valvular pathology seen on this study. Measurements 2D Linear Measurements IVSd: 0.88 0.6-0.9/0.6-1.0 cm LVIDd: 6.42 3.9-5.3/4.2-5.9 cm LVIDd Index: 3.53 2.4-3.2/2.2-3.1 cm/m2 LVIDs: 5.29 2.0-3.6 cm LVPWd: 0.97 0.7-1.1 cm LA Diam: 4.60 2.7-3.8/3.0-4.0 cm LAIDs Index: 2.53 1.5-2.3 cm/m2 LV Mass: 313.47 67-162/88-224 g LV Mass Index: 172.23 43-95/49-115 g/m2 LVOT Diam: 2.30 3.0+(-)1.3 cm 2D Systolic Function EF 4C: 36.10 >55% EF 2C: 45.10 >55% EF BiP: 40.20 >55% Mitral Valve MV Pk E: 0.74 MV PK A: 0.93 MV Decel Time: 315.00 E/A: 0.80 E'Lateral: 7.83 E'Medial: 4.24 E/E' Med: 17.40 E/E' Lat: 9.40 PHT: 92.00 MVA PHT: 2.39 Decel Starr: 2.34 Aortic Valve AoV Pk Migel: 1.40 AoV Mn Migel: 1.00 AoV VTI: 0.31 AoV Pk Grad: 8.00 Aov Mn Grad: 4.00 AVANI Cont.VTI: 2.17 LVOT LVOT Pk Migel: 0.73 LVOT Mn Migel: 0.51 LVOT VTI: 0.16 LVOT Pk Grad: 2.00 LVOT Mn Grad: 1.00 LVOT Diam: 2.30 LVOT Area: 4.15 Diastolic Function MV Pk E: 0.74 MV Pk A: 0.93 E/A: 0.80 E'Medial: 4.24 E/E' Med: 17.40 E' Laterial: 7.83 E/E' Lat: 9.40 Right Ventricle TAPSE (mm): 17.00 TVS' Migel: 8.92 Tricuspid Valve RA Press: 3.00 Great Vessels Aorta Sinus of Valsalva: 3.80 2.0-3.5 cm Ao Asc: 3.10 2.1-3.4 cm Pulmonary Valve PV Pk Migel: 0.77 Peak PV Grad: 2.00 Updated in Other Vendor System with Status of Final Oswald Stuart MD electronically signed on 08/29/2023 11:41:03 AM with status of Final
[2023-08-27 10:10] LABS: Anion Gap 12 (12-20); Blood Urea Nitrogen 11 mg/dL (9-16); Calcium 9.1 mg/dL (8.4-10.2); Carbon Dioxide 34 mmol/L (22-29); Chloride 101 mmol/L (96-108); Cholesterol 121 mg/dL (<200); Estimated Glomerular Filt Rate > 60; Glucose Random 104 mg/dL (60-115); HDL Cholesterol 48 mg/dL (>40); LDL Cholesterol Calculated 57 mg/dL (<100); Potassium 3.5 mmol/L (3.3-5.1); Sodium 143 mmol/L (135-145); Triglycerides 81 mg/dL (<150)
[2023-08-27 10:12] LABS: B Type Natriuretic Peptide 215 pg/mL (<100)
== END ==
LOC: HO.CARD 07:29
PROVIDERS: Visit Provider Internal Medicine Cardiovascular Disease
DX: I50.20 Unspecified systolic (congestive) heart failure (principal); I25.10 Atherosclerotic heart disease of native coronary artery without angina pectoris; I48.0 Paroxysmal atrial fibrillation
CPT/HCPCS: 36415; 80048; 80061; 83880; 93306; Q9957

== ENCOUNTER → 2023-08-27 07:59 | Outpatient (BNV) | payer OTHER, SELFPAY | PROVIDERS: Visit Provider Internal Medicine | DX: I50.9 Heart failure, unspecified (principal); I34.81 Nonrheumatic mitral (valve) annulus calcification; I35.8 Other nonrheumatic aortic valve disorders | CPT/HCPCS: 93306 ==

== ENCOUNTER 2023-11-05 09:34 | Outpatient (AMB) | payer OTHER, SELFPAY ==
[2023-11-05 09:53] VITALS: BP 120/64; PULSE 72; BMI 26.8
--- NOTE | 2023-11-05 09:53 | MHC.OFFVIS ---
Vital Signs 11/05/23 09:53 Height 5 ft 6 in Weight 166 lb 3.657 oz BMI 26.8 BP 120/64 Blood Pressure Location Lt brachial Position Sitting Pulse 72 Pulse Source Pulse Oximeter Intake Visit Reasons: fu testing- discuss ICD Food And Beverage Lead Required: No Accompanied by: Spouse Allergies Valsartan Adverse Reaction (Uncoded 01/06/23 13:03) Fatigue, back pain, hypotension Medication List - Last Reconciled 11/05/23 by Patrick Jones MD apixaban (Eliquis) 5 mg PO BID atorvastatin 80 mg PO DAILY furosemide 40 mg PO BID 90 days metoprolol succinate ER 100 mg PO BID HPI Comments Details: Brice comes for follow-up. He has been doing very well from cardiac perspective. He denies any symptoms of lightheadedness, syncope. NYHA class 2 symptoms although he said he has has much improved functional capacity since current treatment. No prolonged palpitation irregular heartbeat. No orthopnea, PND, leg edema. Taking all his medications. No hypotension. In the past he has not been able to tolerate angiotensin receptor blockers or Entresto therapy. He denies any bleeding issues or neurologic events. Echo shows persistent moderately severe LV systolic dysfunction with LVEF of 30 35% with wall motion abnormality consistent with ischemic cardiomyopathy. [facility] Medical History Cataract fragments in left eye following surgery SVT (supraventricular tachycardia) Cardiomyopathy Low blood pressure Paroxysmal atrial fibrillation HFrEF (heart failure with reduced ejection fraction) Atherosclerotic cardiovascular disease Atrial fibrillation Murmur, cardiac CHF (congestive heart failure) CAD (coronary artery disease) [place] Surgical History S/P ablation of accessory bypass tract S/P quadruple vessel bypass Social History Household Members: Spouse Housing: House Do you presently have visiting nurse or other home services: No Alcohol intake: never Patient Tobacco Use Status: Former Tobacco user service: No Current occupational status: retired Review of Systems Const Denies chills, Denies fatigue, Denies fever(s), Denies frequent falls, Denies weakness, Denies weight gain and Denies weight loss ENT Denies dizziness Card Denies chest pain, Denies leg edema, Denies lightheadedness, Denies palpitations, Denies dyspnea and Denies dyspnea on exertion Resp Denies cough, Denies dyspnea and Denies dyspnea on exertion GI Denies hematochezia Musc Denies abnormal gait, Denies muscle weakness, Denies numbness, Denies radiating pain into limb and Denies tingling Neuro Denies abnormal gait, Denies dizziness, Denies frequent falls, Denies numbness, Denies tingling and Denies weakness Endo Denies fatigue and Denies palpitations Physical Exam Vital Signs: Last Vital Signs Pulse 72 11/05/23 09:53 BP 120/64 11/05/23 09:53 BMI result Body Mass Index 26.8 Const General: cooperative, comfortable, no acute distress, well developed, alert and awake Nutritional Appearance: overweight Orientation/consciousness: patient oriented x3 Limitations: no limitations Neck Neck: Yes trachea midline, Yes supple and Yes no JVD Resp Effort & Inspection: normal respiratory effort Auscultation: clear to auscultation bilaterally Cardio Jugular venous distension: no JVD Palpation: abnormal PMI displaced PMI Rate: regular rate Rhythm: regular rhythm Heart sounds: S1 normal heart sound present, S2 normal heart sound present, no click, no gallops, no murmurs and no rubs Skin General skin exam: no rashes or lesions noted Neuro General: patient oriented x3 and no focal motor deficits Extrem General: Yes no clubbing, cyanosis or edema Psych Appearance: grossly normal Office Procedures EKG Details: EKG shows normal sinus rhythm with nonspecific IVCD with QRS duration 120 milliseconds with nonspecific T-wave changes in inferior leads [id number], Complete Assessment & Plan Assessment & Plan (1) HFrEF (heart failure with reduced ejection fraction): Code(s): I50.20 - Unspecified systolic (congestive) heart failure Category: Medical Plan: Heart failure with reduced ejection fraction with persistent moderately severe LV systolic dysfunction with regional wall motion abnormality LVEF of 30 35% with NYHA class 2 symptoms. Clinically euvolemic and well compensated current diuretic dose. Can not tolerate other neurohormonal modulators. He is currently on metoprolol for neurohormonal modulation. Continue current therapy. Heart failure management discussed in details. Daily weight monitoring avoidance of salt loading was discussed encouraged to continue to participate in physical activity as tolerated. We also discussed about ICD placement for primary prevention. He does not have any conduction abnormality that would benefit from cardiac resynchronization therapy and therefore would be a candidate for subcutaneous ICD. Will have him evaluate for the same in the near future and then proceed with placement. We discussed the risks, benefits and need for ICD placement for primary prevention. Eventually agreed and is willing to pursue the same. (2) Paroxysmal atrial fibrillation: Code(s): I48.0 - Paroxysmal atrial fibrillation Category: Medical Plan: Paroxysmal atrial fibrillation which is doing well at current point time. No recurrent episodes. Has done well on metoprolol therapy. Does not need additional antiarrhythmic drug therapy unless he has recurrence. Has done very well with rhythm control approach will continue pursue rhythm control approach. Continue full oral anticoagulation, currently on Eliquis 5 mg b.i.d.. Semi annual renal function test should be pursued. (3) CAD (coronary artery disease): Code(s): I25.10 - Atherosclerotic heart disease of [place] coronary artery without angina pectoris Category: Medical Plan: CAD with remote coronary artery bypass grafting. Clinically currently doing well with no symptoms of angina at this point time. Continue aggressive blood pressure control which is currently well optimized on metoprolol therapy. Continue high-intensity statin therapy. Target goal LDL closer to 60 mg/dL. Continue full oral anticoagulation with Eliquis. Avoid aspirin therapy. Will follow up in the clinic in 10 weeks time after device placement. Thank you for allowing me to partake in his care Coding Level of Care Code Est Pt Level 4 (80725) Diagnoses HFrEF (heart failure with reduced ejection fraction) I50.20 Paroxysmal atrial fibrillation I48.0 CAD (coronary artery disease) I25.10 CPT Codes EKG - CPT: 89595-[id number], Complete ([id number])
== END 2023-11-05 10:20 | disposition home or self-care (01) ==
PROVIDERS: PCP Internal Medicine; Visit Provider Internal Medicine Cardiovascular Disease
DX: I50.20 Unspecified systolic (congestive) heart failure (principal); I48.0 Paroxysmal atrial fibrillation; I25.10 Atherosclerotic heart disease of native coronary artery without angina pectoris
CPT/HCPCS: 93010; 99214

== ENCOUNTER → 2023-11-05 09:34 | Outpatient (BNVA) | payer OTHER, SELFPAY | PROVIDERS: Visit Provider Internal Medicine Cardiovascular Disease | DX: I50.20 Unspecified systolic (congestive) heart failure (principal); I48.0 Paroxysmal atrial fibrillation; I25.10 Atherosclerotic heart disease of native coronary artery without angina pectoris; Z79.01 Long term (current) use of anticoagulants; Z79.899 Other long term (current) drug therapy | CPT/HCPCS: 93005 ==

== ENCOUNTER 2024-01-13 15:18 | Outpatient (AMB) | payer OTHER, SELFPAY ==
[2024-01-13 15:36] VITALS: BP 102/70; PULSE 72; BMI 26.7
--- NOTE | 2024-01-13 15:36 | MHC.OFFVIS ---
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: No Ssds Mk 2 Advanced Operator: Ssds Mk 2 Advanced Operator Present Allergies Valsartan Adverse Reaction (Uncoded 01/13/24 15:38) Fatigue, back pain, hypotension Medication List - Last Reconciled 01/13/24 by Leyda Thomason NP-C apixaban (Eliquis) 5 mg PO BID atorvastatin 80 mg PO DAILY furosemide 40 mg PO BID 90 days metoprolol succinate ER 100 mg PO BID HPI HPI 10 wk follow up: Details: Brice is a 73-year-old male with past medical history of hyperlipidemia, paroxysmal atrial fibrillation, NSVT, CAD with remote Coronary artery bypass grafting, ischemic cardiomyopathy, declines ICD, heart failure with reduced EF who presents for follow-up. Today he reports he has been feeling well with no concerning symptoms. He reports good activity tolerance. No chest discomfort at rest or with activity. No concerning shortness of breath, PND, orthopnea or edema. No lightheadedness, presyncope, syncope, falls. He reports compliance with his meds. is present. [facility] Medical History (Updated 01/13/24 @ 16:21 by Leyda Thomason, CAROLYNN-C) Cardiomyopathy Cataract fragments in left eye following surgery SVT (supraventricular tachycardia) Low blood pressure Paroxysmal atrial fibrillation HFrEF (heart failure with reduced ejection fraction) Atherosclerotic cardiovascular disease Atrial fibrillation Murmur, cardiac CHF (congestive heart failure) CAD (coronary artery disease) [place] Surgical History S/P ablation of accessory bypass tract S/P quadruple vessel bypass Social History Household Members: Spouse Housing: House Do you presently have visiting nurse or other home services: No Alcohol intake: never Patient Tobacco Use Status: Former Tobacco user service: No Current occupational status: retired Review of Systems Const All systems reviewed & are unremarkable except as noted in HPI and below ENT Denies dizziness Card Denies chest pain, Denies chest pain at rest, Denies chest pain with activity, Denies rapid heart rate, Denies pedal edema, Denies edema, Denies leg edema, Denies lightheadedness, Denies palpitations, Denies dyspnea, Denies dyspnea on exertion and Denies orthopnea Resp Denies cough, Denies dyspnea and Denies dyspnea on exertion GI Denies hematochezia and Denies change in stool character Musc Denies abnormal gait, Denies limited range of motion, Denies muscle cramps, Denies muscle weakness, Denies numbness, Denies radiating pain into limb, Denies stiffness and Denies tingling Neuro Denies abnormal gait, Denies dizziness, Denies numbness and Denies tingling Endo Denies palpitations Physical Exam Vital Signs: Last Vital Signs Pulse 72 01/13/24 15:36 BP 102/70 01/13/24 15:36 BMI result Body Mass Index 26.7 Const General: cooperative, healthy appearing, comfortable and no acute distress Orientation/consciousness: patient oriented x3 Neck Neck: Yes normal visual inspection and Yes no JVD Resp Effort & Inspection: normal respiratory effort Auscultation: clear to auscultation bilaterally, no rales, no rhonchi and no wheezes Cardio Jugular venous distension: no JVD Rate: regular rate Rhythm: regular rhythm Heart sounds: S1 normal heart sound present, S2 normal heart sound present, no murmurs and no rubs Neuro General: patient oriented x3 Extrem General: Yes normal to inspection, No no pedal edema and No calf tenderness Psych Appearance: grossly normal Mental Status: mental status grossly normal Speech and movement: Normal speech and movement present Assessment & Plan Assessment & Plan (1) CAD (coronary artery disease): Code(s): I25.10 - Atherosclerotic heart disease of [place] coronary artery without angina pectoris Category: Medical Plan: History of CAD with remote coronary artery bypass grafting. Last cardiac catheterization 02/11/2021 showing occluded RCA with patent SVG to the RCA, severe left circumflex stenosis with occluded vein graft to the left circumflex, severely disease proximal LAD with patent ALCANTAR to LAD. Medically managed. Last echocardiogram done 08/27/2023 showing EF 30-35%, inferior lateral and basal inferior segment akinetic. He is doing well without any anginal sounding symptoms. He reports good activity tolerance. He has known ischemic cardiomyopathy. ICD discussed last visit and this visit. Patient declines. The risks of arrhythmia and sudden cardiac discussed. He states full understanding. Signs and symptoms of angina reviewed. Continue med management for stable CAD. He is not on aspirin as he is on Eliquis. He is on high-dose atorvastatin with ideal LDL goal less than 70. Labs done 08/27/2023 showed LDL 57. He is on metoprolol. Cardiology follow-up 6 months, sooner if needed. If he changes his mind about ICD placement he is to let this office note. (2) Cardiomyopathy: Comment: Combination of ischemic as well as tachycardia mediated cardiomyopathy Code(s): I42.9 - Cardiomyopathy, unspecified Category: Medical Plan: As above. He has not tolerated Gabriel/Arb or Entresto in the past. He is only on metoprolol for neurohormonal modulation. (3) Paroxysmal atrial fibrillation: Code(s): I48.0 - Paroxysmal atrial fibrillation Category: Medical Plan: History of paroxysmal atrial fibrillation. Currently suppressed with metoprolol. No recent heart palpitations. Pulse regular on examination today. Continue Eliquis for anticoagulation. Continue metoprolol for heart rate control. (4) HFrEF (heart failure with reduced ejection fraction): Code(s): I50.20 - Unspecified systolic (congestive) heart failure Category: Medical Plan: History of heart failure with reduced EF. Condition stable at present. NYHA class 1-2. Continue Lasix. Labs done 08/27/2023 showed creatinine 0.79. Signs and symptoms of heart failure reviewed with him. Plan Time spent on chart review, documentation, interview and assessment Coding Level of Care Code Est Pt Level 4 (14930) Diagnoses CAD (coronary artery disease) I25.10 Cardiomyopathy I42.9 Paroxysmal atrial fibrillation I48.0 HFrEF (heart failure with reduced ejection fraction) I50.20 Time Spent (min) 28
== END 2024-01-13 16:05 | disposition home or self-care (01) ==
LOC: HO.HCS 15:19
PROVIDERS: PCP Internal Medicine; Visit Provider Nurse Practitioner Family
DX: I25.10 Atherosclerotic heart disease of native coronary artery without angina pectoris (principal); I42.9 Cardiomyopathy, unspecified; I48.0 Paroxysmal atrial fibrillation; I50.20 Unspecified systolic (congestive) heart failure
CPT/HCPCS: 99214

== ENCOUNTER → 2024-01-13 15:18 | Outpatient (BNVA) | payer OTHER, SELFPAY | PROVIDERS: PCP Internal Medicine; Visit Provider Nurse Practitioner Family ==

== ENCOUNTER 2024-07-10 08:13 | Outpatient (AMB) | payer OTHER, SELFPAY ==
--- NOTE | 2024-07-10 08:32 | MHC.OFFVIS ---
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 He said he has been doing well over the winter. He maintains activity of daily living without any issues. Denies any worsening shortness of breath, orthopnea, PND, leg edema. Denies any exertional chest pain. No prolonged palpitation irregular heartbeat. Takes all his medications. No bleeding issues or neurologic events. No lightheadedness, syncope. [facility] Medical History Cardiomyopathy Cataract fragments in left eye following surgery SVT (supraventricular tachycardia) Low blood pressure Paroxysmal atrial fibrillation HFrEF (heart failure with reduced ejection fraction) Atherosclerotic cardiovascular disease Atrial fibrillation Murmur, cardiac CHF (congestive heart failure) CAD (coronary artery disease) [place] Surgical History S/P ablation of accessory bypass tract S/P quadruple vessel bypass Social History Household Members: Spouse Housing: House Do you presently have visiting nurse or other home services: No Alcohol intake: never Patient Tobacco Use Status: Former Tobacco user service: No Current occupational status: retired Review of Systems Const Denies chills, Denies fatigue, Denies fever(s), Denies frequent falls, Denies weakness, Denies weight gain and Denies weight loss ENT Denies dizziness Card Denies chest pain, Denies leg edema, Denies lightheadedness, Denies palpitations, Denies dyspnea, Denies dyspnea on exertion, Denies orthopnea and Denies other (loss of consciousness) Resp Denies cough, Denies dyspnea and Denies dyspnea on exertion GI Denies hematochezia and Denies change in stool character Musc Denies abnormal gait, Denies muscle weakness, Denies numbness, Denies radiating pain into limb and Denies tingling Neuro Denies abnormal gait, Denies dizziness, Denies frequent falls, Denies numbness, Denies tingling and Denies weakness Endo Denies fatigue and Denies palpitations Physical Exam Vital Signs: Last Vital Signs Pulse 51 07/10/24 08:33 BP 124/74 07/10/24 08:33 BMI result Body Mass Index 28.1 Const General: cooperative, comfortable, no acute distress, well developed, alert and awake Nutritional Appearance: overweight Orientation/consciousness: patient oriented x3 Limitations: no limitations Neck Neck: Yes trachea midline, Yes supple and Yes no JVD Resp Effort & Inspection: normal respiratory effort Auscultation: wheezes Cardio Jugular venous distension: no JVD Palpation: abnormal PMI displaced PMI Rate: regular rate Rhythm: regular rhythm Heart sounds: S1 normal heart sound present, S2 normal heart sound present, no click, no gallops, no murmurs and no rubs Skin General skin exam: no rashes or lesions noted Neuro General: patient oriented x3 and no focal motor deficits Extrem General: Yes no clubbing, cyanosis or edema Psych Appearance: grossly normal Assessment & Plan Assessment & Plan (1) CAD (coronary artery disease): Code(s): I25.10 - Atherosclerotic heart disease of [place] coronary artery without angina pectoris Category: Medical Plan: CAD status post coronary artery bypass grafting, appears currently stable. Currently not having any symptoms. Discussed with him about management and anginal symptoms. Continue metoprolol therapy. Currently on full oral anticoagulation apixaban and therefore would avoid aspirin therapy to reduce bleeding risk. Continue high-intensity statin therapy with target goal LDL less than 60 mg/dL. Advised lipid panel at least on annual basis. Advised to monitor blood pressure at home and maintain a log. Call me with any worsening symptoms. (2) HFrEF (heart failure with reduced ejection fraction): Code(s): I50.20 - Unspecified systolic (congestive) heart failure Category: Medical Plan: Heart failure with reduced ejection fraction, clinically euvolemic and well compensated current diuretic dose. Importance of regular diuretic regimen was discussed. Daily weight monitoring avoidance salt loading was discussed. Advised to take additional diuretic therapy as need be. Has not been able to tolerate other neurohormonal modulation in the past in his not interested in currently using any other medications at this point time. Also discussed about risk of sudden cardiac that and they declines an ICD placement. (3) Paroxysmal atrial fibrillation: Code(s): I48.0 - Paroxysmal atrial fibrillation Category: Medical Plan: Paroxysmal atrial fibrillation, currently suppressed and maintaining sinus rhythm. Continue to monitor by EKG on annual basis. Advised to call me with any symptoms. Continue metoprolol therapy. Avoidance of stimulants was discussed. Continue full oral anticoagulation with Eliquis. Semi annual renal function test to be pursued. Will follow up in the clinic in 6 months time after an echocardiogram. Thank you for allowing me to partake in his care Coding Level of Care Code Est Pt Level 4 (29021) Complex EM visit Add On G2211 Diagnoses CAD (coronary artery disease) I25.10 HFrEF (heart failure with reduced ejection fraction) I50.20 Paroxysmal atrial fibrillation I48.0
[2024-07-10 08:33] VITALS: BP 124/74; PULSE 51; BMI 28.1
== END 2024-07-10 09:17 | disposition home or self-care (01) ==
LOC: HO.HCS 08:14
PROVIDERS: PCP Internal Medicine; Visit Provider Internal Medicine Cardiovascular Disease
DX: I25.10 Atherosclerotic heart disease of native coronary artery without angina pectoris (principal); I50.20 Unspecified systolic (congestive) heart failure; I48.0 Paroxysmal atrial fibrillation
CPT/HCPCS: 99214; G2211

== ENCOUNTER → 2024-07-10 08:13 | Outpatient (BNVA) | payer OTHER, SELFPAY | PROVIDERS: PCP Internal Medicine; Visit Provider Internal Medicine Cardiovascular Disease ==

== ENCOUNTER 2025-01-08 07:57 | Outpatient (AMB) | payer OTHER, SELFPAY ==
--- OUTSIDE RECORDS SUMMARY | 2025-01-08 08:00 | XMS_ITS | Clinical Summary ---
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; sarcoma of thigh Immunizations Immunization Administration Dates Next Due Influenza, Unspecified Formulation 03/21(Deferred: Other),03/21/2010(Deferred: Other) Social History Tobacco Use Types Packs/Day Years Used Date Smoking Tobacco: Former Cigarettes Comments:Quit smokin03/15 Sex and Gender Information Value Date Recorded Sex Assigned at Not on file Legal Sex Male 7:31 PM EST Gender Identity Not on file Sexual Orientation Not on file Last Filed Vital Signs Vital Sign Reading Time Taken Comments Blood Pressure 118/80 03/18/2015 8:59 AM EST Pulse 65 03/18/2015 8:59 AM EST Temperature 36.5 C (97.7 F) 03/18/2015 8:59 AM EST Respiratory Rate 16 03/18/2015 8:59 AM EST Oxygen Saturation - - Inhaled Oxygen Concentration - - Weight 84.8 kg (187 lb) 03/18/2015 8:59 AM EST Height 165.1 cm (5' 5 ) 03/18/2015 8:59 AM EST Body Mass Index 31.12 03/18/2015 8:59 AM EST Plan of Treatment Not on file Medical Devices Not on file Insurance CIGNA PPO CIGNA PPO CIGNA PPO CIGNA PPO CIGNA PPO CIGNA PPO CIGNA PPO CIGNA PPO CIGNA PPO Care Teams Clinical Staff Anesthesiologist Relationship Specialty Start Date End Date Jeremy Wallace MD [address] [place] [id number] PCP - General 09/12/13 Additional Source Comments The information contained in this document represents components of the legal health record. It is not the complete legal health record.[facility]
[2025-01-08 08:22] VITALS: BP 120/66; PULSE 75; BMI 28.7
--- NOTE | 2025-01-08 08:22 | MHC.OFFVIS ---
Vital Signs 01/08/25 08:22 Height 5 ft 6 in Weight 178 lb 2.136 oz BMI 28.7 BP 120/66 Blood Pressure Location Lt brachial Pulse 75 Pulse Source Monitor Intake Visit Reasons: 6 mth fu after echo Intake Note: 6 month f/u after echo Presser Machine Required: No Accompanied by: Self / Same As Patient Allergies Valsartan Adverse Reaction (Uncoded 01/13/24 15:38) Fatigue, back pain, hypotension Medication List - Last Reconciled 01/08/25 by Patrick Jones MD apixaban (Eliquis) 5 mg PO BID atorvastatin 80 mg PO DAILY furosemide 40 mg PO BID metoprolol succinate ER 100 mg PO BID HPI Comments Details: Brice comes for follow-up. He has been doing well. He walks his dog about a mi. Also works in his [employer]. He has no cardiac symptoms. Denies any symptoms of exertional chest pain. Denies any worsening shortness of breath. No orthopnea, PND, leg edema. Takes all his medications. Denies any prolonged palpitation irregular heartbeat. No bleeding issues or neurologic events. No recent lab work. No recent echocardiogram. [facility] Medical History Cardiomyopathy Cataract fragments in left eye following surgery SVT (supraventricular tachycardia) Low blood pressure Paroxysmal atrial fibrillation HFrEF (heart failure with reduced ejection fraction) Atherosclerotic cardiovascular disease Atrial fibrillation Murmur, cardiac CHF (congestive heart failure) CAD (coronary artery disease) [place] Surgical History S/P ablation of accessory bypass tract S/P quadruple vessel bypass Social History Household Members: Spouse Housing: House Do you presently have visiting nurse or other home services: No Alcohol intake: never Patient Tobacco Use Status: Former Tobacco user service: No Current occupational status: retired Review of Systems Const Denies daytime sleepiness, Denies difficulty sleeping, Denies snoring, Denies stops breathing during sleep and Denies weakness Card Denies chest pain, Denies rapid heart rate, Denies irregular heart rhythm, Denies claudication, Denies leg edema, Denies lightheadedness, Denies palpitations, Denies dyspnea, Denies dyspnea on exertion, Denies orthopnea, Denies paroxysmal nocturnal dyspnea and Denies slow heart rate Resp Denies cough, Denies dyspnea, Denies dyspnea on exertion and Denies snoring GI Reports no additional complaints, Denies hematochezia, Denies change in stool character and Denies dyspepsia Musc Denies abnormal gait, Denies muscle weakness and Denies numbness Neuro Denies abnormal gait, Denies numbness and Denies weakness Endo Denies palpitations Physical Exam Vital Signs: Last Vital Signs Pulse 75 01/08/25 08:22 BP 120/66 01/08/25 08:22 BMI result Body Mass Index 28.7 Const General: cooperative, comfortable, no acute distress, well developed, alert and awake Nutritional Appearance: overweight Orientation/consciousness: patient oriented x3 Limitations: no limitations Neck Neck: Yes trachea midline, Yes supple and Yes no JVD Resp Effort & Inspection: normal respiratory effort Auscultation: wheezes Cardio Jugular venous distension: no JVD Palpation: abnormal PMI displaced PMI Rate: regular rate Rhythm: regular rhythm Heart sounds: S1 normal heart sound present, S2 normal heart sound present, no click, no gallops, no murmurs and no rubs Skin General skin exam: no rashes or lesions noted Neuro General: patient oriented x3 and no focal motor deficits Extrem General: Yes no clubbing, cyanosis or edema Psych Appearance: grossly normal Office Procedures EKG Details: EKGs shows normal sinus rhythm with small Q-waves in inferior leads with nonspecific STT wave changes [id number], Complete Assessment & Plan Assessment & Plan (1) HFrEF (heart failure with reduced ejection fraction): Code(s): I50.20 - Unspecified systolic (congestive) heart failure Category: Medical Plan: Heart failure with reduced ejection fraction, clinically euvolemic and well compensated. Could not tolerate much other neurohormonal modulation due to low blood pressure and symptoms. Currently on metoprolol therapy. Clinically euvolemic and well compensated. Good functional capacity at this point time. Continue current metoprolol therapy for neurohormonal modulation. Continue current diuretic dose. Daily weight monitoring avoidance salt loading was discussed additional diuretics as need be. Will follow-up echocardiogram near future. (2) CAD (coronary artery disease): Code(s): I25.10 - Atherosclerotic heart disease of [place] coronary artery without angina pectoris Category: Medical Plan: CAD with quadruple coronary artery bypass grafting. Currently clinically stable. No symptoms of angina. Currently on full oral anticoagulation with Eliquis at 5 mg b.i.d.. No additional aspirin therapy. Will need lipid panel in near future. Continue high-intensity statin therapy. Advised to call me with any new symptoms. Continue metoprolol therapy. (3) Paroxysmal atrial fibrillation: Code(s): I48.0 - Paroxysmal atrial fibrillation Category: Medical Plan: Paroxysmal atrial fibrillation, currently suppressed on metoprolol therapy. No indication for antiarrhythmic drug therapy. Advised to call me with new symptoms. Continue current full oral anticoagulation with apixaban. Semi annual renal function test should be pursued. Avoidance of stimulants was discussed. Will follow up in the clinic in 1 year's time, sooner PRN. Thank you for allowing me to partake in his care Orders: Orders Lipid Panel Today I25.10 - Atherosclerotic heart disease of [place] coronary artery without angina pectoris Basic Metabolic Panel Today I48.0 - Paroxysmal atrial fibrillation Complete Blood Count no Diff Today I48.0 - Paroxysmal atrial fibrillation [place] echo transthoracic complete Today I50.20 - Unspecified systolic (congestive) heart failure Coding Level of Care Code Est Pt Level 4 (45077) Complex EM visit Add On G2211 Diagnoses HFrEF (heart failure with reduced ejection fraction) I50.20 CAD (coronary artery disease) I25.10 Paroxysmal atrial fibrillation I48.0 CPT Codes EKG - CPT: 90172-[id number], Complete ([id number])
== END 2025-01-08 08:42 | disposition home or self-care (01) ==
LOC: HO.HCS 07:57
PROVIDERS: PCP Internal Medicine; Visit Provider Internal Medicine Cardiovascular Disease
DX: I50.20 Unspecified systolic (congestive) heart failure (principal); I25.10 Atherosclerotic heart disease of native coronary artery without angina pectoris; I48.0 Paroxysmal atrial fibrillation
CPT/HCPCS: 93010; 99214; G2211

== ENCOUNTER → 2025-01-08 07:57 | Outpatient (BNVA) | payer OTHER, SELFPAY | PROVIDERS: PCP Internal Medicine; Visit Provider Internal Medicine Cardiovascular Disease | DX: I48.0 Paroxysmal atrial fibrillation (principal) | CPT/HCPCS: 93005 ==